=== PATIENT | male | born 1950 | race Caucasian/White ===

== ENCOUNTER 2017-11-12 11:39 | Emergency (ER) | payer MEDICARE, OTHER, SELFPAY ==
[2017-11-12 11:41] VITALS: BP 140/100; PULSE 66; RESP 18; TEMP 36.6; O2SAT 98; BMI 58.8
--- NOTE | 2017-11-12 11:58 | XR_ITS ---
XR chest portable HISTORY: ITS.REASON: CHEST PAIN ORDERING PHYSICIAN: Jojo Matias MD PATIENT AGE: 67 years COMPARISON: 05/30/2017 FINDINGS: The cardiomediastinal silhouette and pulmonary vascularity are within normal limits. The lungs are clear without infiltrates, suspicious nodules, or pleural effusions. Minimal atelectatic or fibrotic changes are present in the left CP angle. Cardiac pacemaker device is present from left subclavian approach. No acute bony abnormalities. IMPRESSION: No acute finding
--- NOTE | 2017-11-12 12:05 | HMH.EDCP ---
ED Disposition Clinical Impression: Atypical chest pain Disposition: Home, Self-Care Condition on Discharge: Good Instructions: DI for Atypical Chest Pain Additional Instructions: Commend very close follow up with your primary care physician Dr. Gutierrez in 1-[address] Annmarie Irving charge weigher, next available appointment. Continue all current medications. Referrals: Gilbert Gutierrez MD [Primary Care Provider] - - Critical Care Critical Care Time: No Attestation: On , the high probability of a clinically significant, sudden or life threatening deterioration of the following system(s) required my full and direct attention, intervention and personal management. The time I documented below is in addition to time spent performing reported procedures but includes the following listed in this critical care notation. Medical Decision Making Vital Signs: 11/12/17 11:41 Temperature 97.8 F Temperature Source Oral Pulse Rate [Radial] 66 Respiratory Rate 18 Blood Pressure [Right Arm] 140/100 Blood Pressure Mean [Right Arm] 113 Blood Pressure Source [Right Arm] Manual Cuff/ Auscultation Blood Pressure Position [Right Arm] Supine 02 Sat by Pulse Oximetry 98 Oxygen Delivery Method Room Air - Lab Data Lab Results 11/12/17 12:05: WBC 8.6, RBC 5.03, Hgb 15.2, Hct 45.4, MCV 90.2, MCH 30.1, MCHC 33.4, RDW 13.5, Plt Count 197, MPV 8.3, Neut % (Auto) 50.3, Lymph % (Auto) 38.1, [place] % (Auto) 8.8, Eos % (Auto) 2.4, Baso % (Auto) 0.4, Neut # (Auto) 4.3, Lymph # (Auto) 3.3, [place] # (Auto) 0.8, Eos # (Auto) 0.2, Baso # (Auto) 0.0 11/12/17 12:05: Sodium 143, Potassium 4.0, Chloride 104, Carbon Dioxide 30, Anion Gap 13.0, BUN 14, Creatinine 1.36 H, Estimated Creat Clear 54, Estimated GFR 52 L, Est GFR ( Amer) 63, Glucose 101, Calcium 8.5, Total Bilirubin 0.8, AST 21, ALT 21, Alkaline Phosphatase 92, Total Creatine Kinase 118, CK-MB (CK-2) 0.9, CK-MB (CK-2) Rel Index 0.8, Troponin I < 0.02, Total Protein 7.5, Albumin 3.2 L, Globulin 4.3 H, Albumin/Globulin Ratio 0.7 L Result diagrams: 11/12/17 12:05 11/12/17 12:05 Orders (Tests/Meds): ED MEDICATIONS Generic Name Dose Route Start Last Admin Trade Name Freq PRN Reason Stop Dose Admin Sodium Chloride 10 ml 11/12/17 11:59 Saline Flush 10ml Syringe IV 12/12/17 11:58 NEEDED PRN Maintain IV Site Discontinued Medications Generic Name Dose Route Start Last Admin Trade Name Freq PRN Reason Stop Dose Admin Aspirin 324 mg 11/12/17 11:58 11/12/17 12:32 Aspirin 81mg Chewable Tablet PO 11/12/17 11:59 324 mg ONCE ONE Administration ORDERS Category Date Time Status XR chest portable Stat Exams 11/12/17 11:58 Taken - Radiology Data #1 Image(s): Chest Image Reviewed: Yes I reviewed the patient's radiology image COPD; AICD, mild atelectasis at bases - ECG Data Tracing #1 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 No change from prior EKG dated 05/30/2017 - [place] Inquiry Pt receiving controlled substance: No Medical Decision Making Narrative: Patient has no complaints, is stable, has normal troponin, no acute changes on EKG, afebrile; will f/u PCP one day and will have close f/u with Dr. Morales. Chest Pain HPI - General Chief Complaint: Chest Pain Stated Complaint: Chest pain Time Seen by Provider: 11/12/17 11:45 Mode of Arrival: Ambulatory Limitations: No Limitations Description of Symptoms (Recalled from ER Triage Doc. by RN): Left side chest pain - History of Present Illness HPI narrative: Chest pain since 1800 last night. Better now. Pain was positional, radiated to scapula, occurred at rest, no nausea, no vomiting, has diminished appetite and is being supplemented per d/w ; no syncope; has a little bit of a dry cough but no fever, no SOB, no diaphoresis, no palpitations. No complaints now. states he has had some short term memory loss since [place] bu
--- NOTE | 2017-11-12 12:12 | ED_ITS ---
ED Disposition Clinical Impression: Atypical chest pain Disposition: Home, Self-Care Condition on Discharge: Good Instructions: DI for Atypical Chest Pain Additional Instructions: Commend very close follow up with your primary care physician Dr. Gutierrez in 1-[address] Annmarie Irving agile developer, next available appointment. Continue all current medications. Referrals: Gilbert Gutierrez MD [Primary Care Provider] - - Critical Care Critical Care Time: No Attestation: On , the high probability of a clinically significant, sudden or life threatening deterioration of the following system(s) required my full and direct attention, intervention and personal management. The time I documented below is in addition to time spent performing reported procedures but includes the following listed in this critical care notation. Medical Decision Making Vital Signs: 11/12/17 11:41 Temperature 97.8 F Temperature Source Oral Pulse Rate [Radial] 66 Respiratory Rate 18 Blood Pressure [Right Arm] 140/100 Blood Pressure Mean [Right Arm] 113 Blood Pressure Source [Right Arm] Manual Cuff/ Auscultation Blood Pressure Position [Right Arm] Supine 02 Sat by Pulse Oximetry 98 Oxygen Delivery Method Room Air - Lab Data Lab Results 11/12/17 12:05: WBC 8.6, RBC 5.03, Hgb 15.2, Hct 45.4, MCV 90.2, MCH 30.1, MCHC 33.4, RDW 13.5, Plt Count 197, MPV 8.3, Neut % (Auto) 50.3, Lymph % (Auto) 38.1 , [place] % (Auto) 8.8, Eos % (Auto) 2.4, Baso % (Auto) 0.4, Neut # (Auto) 4.3, Lymph # (Auto) 3.3, [place] # (Auto) 0.8, Eos # (Auto) 0.2, Baso # (Auto) 0.0 11/12/17 12:05: Sodium 143, Potassium 4.0, Chloride 104, Carbon Dioxide 30, Anion Gap 13.0, BUN 14, Creatinine 1.36 H, Estimated Creat Clear 54, Estimated GFR 52 L, Est GFR ( Amer) 63, Glucose 101, Calcium 8.5, Total Bilirubin 0.8, AST 21, ALT 21, Alkaline Phosphatase 92, Total Creatine Kinase 118, CK-MB ( CK-2) 0.9, CK-MB (CK-2) Rel Index 0.8, Troponin I < 0.02, Total Protein 7.5, Albumin 3.2 L, Globulin 4.3 H, Albumin/Globulin Ratio 0.7 L Result diagrams: 11/12/17 12:05 11/12/17 12:05 Orders (Tests/Meds): ED MEDICATIONS Generic Name Dose Route Start Last Admin Trade Name Freq PRN Reason Stop Dose Admin Sodium Chloride 10 ml 11/12/17 11:59 Saline Flush 10ml Syringe IV 12/12/17 11:58 NEEDED PRN Maintain IV Site Discontinued Medications Generic Name Dose Route Start Last Admin Trade Name Freq PRN Reason Stop Dose Admin Aspirin 324 mg 11/12/17 11:58 11/12/17 12:32 Aspirin 81mg Chewable Tablet PO 11/12/17 11:59 324 mg ONCE ONE Administration ORDERS Category Date Time Status XR chest portable Stat Exams 11/12/17 11:58 Taken - Radiology Data #1 Image(s): Chest Image Reviewed: Yes I reviewed the patient's radiology image COPD; AICD, mild atelectasis at bases - ECG Data Tracing #1 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 No change from prior EKG dated 05/30/2017 - [place] Inquiry Pt receiving controlled substance: No Medical Decision Making Narrative: Patient has no complaints, is stable, has normal troponin, no acute changes on EKG, afebrile; will f/u PCP one day and will have close f/u with Dr. Morales. Chest Pain HPI - Gene
[2017-11-12 12:16] LABS: Basophils % 0.4 % (0.1-2.0); Eosinophils # 0.2 K/mm3 (0.0-0.4); Eosinophils % 2.4 % (0.1-12.0); Hematocrit 45.4 % (42.0-52.0); Hemoglobin 15.2 g/dL (14.1-18.0); Lymphocytes # 3.3 K/mm3 (0.7-4.5); Lymphocytes % 38.1 K/mm3 (10-50); Mean Corpuscular HGB Conc 33.4 g/dL (31.8-35.4); Mean Corpuscular Hemoglobin 30.1 pg (27.0-31.2); Mean Corpuscular Volume 90.2 fl (80-94); Mean Platelet Volume 8.3 fl (7.4-10.4); Monocytes # 0.8 K/mm3 (0.1-1.0); Monocytes % 8.8 % (1.7-9.3); Neutrophils # 4.3 K/mm3 (1.8-7.8); Neutrophils % 50.3 % (37.0-80.0); Platelet Count 197 K/mm3 (142-424); Red Blood Count 5.03 M/mm3 (4.60-6.20); Red Cell Distribution Width 13.5 % (11.5-17.5); White Blood Count 8.6 K/mm3 (4.8-10.8)
[2017-11-12 12:40] LABS: Alanine Aminotransferase 21 U/L (12-78); Albumin Level 3.2 gm/dL (3.4-5.0); Albumin/Globulin Ratio 0.7 (1.1-1.8); Alkaline Phosphatase 92 U/L (46-116); Bilirubin,Total 0.8 mg/dL (0.2-1.0); Blood Urea Nitrogen 14 mg/dL (7-18); CKMB Relative Index 0.8 U/L (0-4.0); Calcium 8.5 mg/dL (8.5-10.1); Carbon Dioxide 30 mmol/L (21.0-32.0); Chloride 104 mmol/L (98-107); Creatine Kinase 118 U/L (39-308); Creatine Kinase MB 0.9 mg/ml (0.0-3.6); Creatinine Clearance Estimated 54 mL/min (0-300); Creatinine,Serum 1.36 mg/dL (0.70-1.30); Estimated Glomerular Filt Rate 52 ml/min (>60); GFR (African American) 63 ML/MIN (>60); Globulin 4.3 gm/dl (1.3-3.2); Glucose 101 mg/dL (74-106); Sodium 143 mmol/L (136-145); Total Protein,Serum 7.5 gm/dL (6.4-8.2); Troponin I < 0.02 ng/ml (0.00-0.06)
[2017-11-12 12:46] LABS: Aspartate Amino Transferase 21 U/L (15-37)
[2017-11-12 13:07] VITALS: BP 129/84; PULSE 61; O2SAT 96
== END 2017-11-12 13:10 | disposition home or self-care (01) ==
PROVIDERS: Emergency Provider Emergency Medicine; Family Provider Internal Medicine Adolescent Medicine; PCP Internal Medicine Adolescent Medicine
DX: R07.89 Other chest pain (principal); J44.9 Chronic obstructive pulmonary disease, unspecified; I25.10 Atherosclerotic heart disease of native coronary artery without angina pectoris; I25.2 Old myocardial infarction; Z87.891 Personal history of nicotine dependence; Z95.0 Presence of cardiac pacemaker
CPT/HCPCS: 71045; 80053; 82550; 82553; 84484; 85025; 93005; 93041; 99284

== ENCOUNTER 2017-11-13 23:26 | Observation (INO) | payer MEDICARE, OTHER, SELFPAY ==
[2017-11-13 23:36] VITALS: BP 149/105; PULSE 87; RESP 20; TEMP 37.1; O2SAT 93; BMI 26.4
[2017-11-14] VITALS (14 sets, daily range): BP systolic 104–135; BP diastolic 60–84; PULSE 50–82; RESP 16–18; TEMP 36.2–37; O2SAT 90–96; BMI 27.4
--- NOTE | 2017-11-14 00:10 | XR_ITS ---
XR chest 2V HISTORY: ITS.REASON: COUGH AND CONGESTION ORDERING PHYSICIAN: Gilbert Gutierrez MD PATIENT AGE: 67 years COMPARISON: 11/12/2017 FINDINGS: Normal heart size. Cardiac pacemaker device remains in place.. Atelectasis/infiltrate has developed in the left lower lobe. The remaining lungs are clear.. No acute bony abnormalities. IMPRESSION: Left lower lobe atelectasis and/or infiltrate
--- NOTE | 2017-11-14 00:15 | PC.NURSE ---
PT TO XRAY AT THIS TIME
--- NOTE | 2017-11-14 00:21 | PC.NURSE ---
PT BACK FROM XRAY
[2017-11-14 00:29] LABS: Basophils % 0.3 % (0.1-2.0); Eosinophils # 0.2 K/mm3 (0.0-0.4); Eosinophils % 1.8 % (0.1-12.0); Hematocrit 41.4 % (42.0-52.0); Hemoglobin 13.9 g/dL (14.1-18.0); Lymphocytes # 3.4 K/mm3 (0.7-4.5); Mean Corpuscular HGB Conc 33.5 g/dL (31.8-35.4); Mean Corpuscular Hemoglobin 30.2 pg (27.0-31.2); Mean Corpuscular Volume 90.2 fl (80-94); Mean Platelet Volume 8.6 fl (7.4-10.4); Monocytes % 11.8 % (1.7-9.3); Neutrophils # 3.8 K/mm3 (1.8-7.8); Neutrophils % 45.2 % (37.0-80.0); Platelet Count 200 K/mm3 (142-424); Red Cell Distribution Width 13.5 % (11.5-17.5); White Blood Count 8.4 K/mm3 (4.8-10.8)
[2017-11-14 00:37] LABS: Strep Scrn Group A (Rapid) Negative (Negative)
--- NOTE | 2017-11-14 00:48 | PC.NURSE ---
LAB CALLED TO LET US KNOW THEY NEEDED ANOTHER GREEN TOP. PT STUCK USING BUTTERFLY ON LEFT HAND LABS RESENT AT THIS TIME
[2017-11-14 01:17] LABS: Alanine Aminotransferase 16 U/L (12-78); Albumin Level 3.2 gm/dL (3.4-5.0); Albumin/Globulin Ratio 0.8 (1.1-1.8); Alkaline Phosphatase 91 U/L (46-116); Anion Gap 11.5 mEq/L (5-15); Aspartate Amino Transferase 15 U/L (15-37); Bilirubin,Total 0.4 mg/dL (0.2-1.0); Blood Urea Nitrogen 13 mg/dL (7-18); Calcium 8.4 mg/dL (8.5-10.1); Carbon Dioxide 29 mmol/L (21.0-32.0); Chloride 104 mmol/L (98-107); Creatine Kinase 90 U/L (39-308); Creatinine Clearance Estimated 67 mL/min (0-300); Creatinine,Serum 1.26 mg/dL (0.70-1.30); Estimated Glomerular Filt Rate 57 ml/min (>60); GFR (African American) 69 ML/MIN (>60); Globulin 4.2 gm/dl (1.3-3.2); Glucose 100 mg/dL (74-106); Potassium 3.5 mmoL/L (3.5-5.1); Sodium 141 mmol/L (136-145); Total Protein,Serum 7.4 gm/dL (6.4-8.2); Troponin I < 0.02 ng/ml (0.00-0.06)
[2017-11-14 01:19] LABS: CKMB Relative Index 0.6 U/L (0-4.0); Creatine Kinase MB < 0.5 mg/ml (0.0-3.6)
--- NOTE | 2017-11-14 01:25 | HMH.EDURI ---
ED Disposition Clinical Impression: CAP (community acquired pneumonia) Qualifiers: Laterality: right Lung location: lower lobe of lung Qualified Code(s): J18.1 - Lobar pneumonia, unspecified organism Disposition: Admitted as Observation Condition on Discharge: Good Referrals: Gilbert Gutierrez MD [Primary Care Provider] - - Critical Care Critical Care Time: No Attestation: On 11/13/17, the high probability of a clinically significant, sudden or life threatening deterioration of the following system(s) required my full and direct attention, intervention and personal management. The time I documented below is in addition to time spent performing reported procedures but includes the following listed in this critical care notation. Medical Decision Making - Medical Records Medical records reviewed: Yes: I reviewed the patient's medical records. Vital Signs: 11/13/17 23:36 Temperature 98.8 F Temperature Source Oral Pulse Rate [Right Brachial] 87 Respiratory Rate 20 Blood Pressure [Right Arm] 149/105 Blood Pressure Mean [Right Arm] 119 Blood Pressure Source [Right Arm] Automatic Cuff Blood Pressure Position [Right Arm] Supine 02 Sat by Pulse Oximetry 93 L Oxygen Delivery Method Room Air - Lab Data Lab results reviewed: Yes: I reviewed the patient's lab results. Lab Results 11/13/17 00:10: Influenza Type A Ag Negative, Influenza Type B Ag Negative, Group A Strep Rapid Negative 11/14/17 00:10: WBC 8.4, RBC 4.60, Hgb 13.9 L, Hct 41.4 L, MCV 90.2, MCH 30.2, MCHC 33.5, RDW 13.5, Plt Count 200, MPV 8.6, Neut % (Auto) 45.2, Lymph % (Auto) 41.0, [place] % (Auto) 11.8 H, Eos % (Auto) 1.8, Baso % (Auto) 0.3, Neut # (Auto) 3.8, Lymph # (Auto) 3.4, [place] # (Auto) 1.0, Eos # (Auto) 0.2, Baso # (Auto) 0.0 11/14/17 00:10: Sodium 141, Potassium 3.5, Chloride 104, Carbon Dioxide 29, Anion Gap 11.5, BUN 13, Creatinine 1.26, Estimated Creat Clear 67, Estimated GFR 57 L, Est GFR ( Amer) 69, Glucose 100, Calcium 8.4 L, Total Bilirubin 0.4, AST 15 D, ALT 16, Alkaline Phosphatase 91, Total Creatine Kinase 90, CK-MB (CK-2) < 0.5 D, CK-MB (CK-2) Rel Index 0.6, Troponin I < 0.02, Total Protein 7.4, Albumin 3.2 L, Globulin 4.2 H, Albumin/Globulin Ratio 0.8 L Result diagrams: 11/14/17 00:10 11/14/17 00:10 Orders (Tests/Meds): ED MEDICATIONS Generic Name Dose Route Start Last Admin Trade Name Freq PRN Reason Stop Dose Admin Ceftriaxone Sodium 1 gm/ 50 mls @ 100 mls/hr 11/14/17 01:40 Sodium Chloride IV 11/14/17 02:09 ONCE ONE Azithromycin 500 mg/ Sodium 250 mls @ 250 mls/hr 11/14/17 01:41 Chloride IV 11/14/17 01:42 ONCE ONE Protocol ORDERS Category Date Time Status XR chest 2V Stat Exams 11/14/17 00:10 Taken Lactic Acid Stat Lab 11/14/17 01:35 Ordered Blood Culture Stat Micro 11/14/17 01:35 Ordered Strep Screen Confirmation Stat Micro 11/13/17 00:10 Received 12-lead EKG Request [ECG Request by /Derek] Stat Y 11/13/17 23:50 Ordered - Radiology Data #1 Image Reviewed: Yes I reviewed the patient's radiology image Preliminary Findings: Abnormal - ECG Data Tracing #1 I reviewed this ECG and interpreted as documented below: Ischemic changes: non-specific ST-T wave changes - Physician Consults Physician Consulted: marianne Reason -: Admission - [place] Inquiry Pt receiving controlled substance: No URI/Sore Throat HPI - General Chief Complaint: Upper Respiratory Infection Stated Complaint: Aching,Burning in Chest Time Seen by Provider: 11/14/17 01:25 Mode of Arrival: Family Vehicle Source of Information: Patient, Spouse, Medical Record Limitations: No Limitations Description of Symptoms (Recalled from ER Triage Doc. by RN): C/O FLU LIKE SYMPTOMS WITH CHEST/BACK PAIN. WAS SEEN IN THIS ED YESTERDAY AND WORKED UP FOR CHEST PAIN - History of Present Illness HPI Narrative: pt with lt sided cp with scraper tender cough with dec po intake - he was in the ed yesterday w
--- NOTE | 2017-11-14 01:31 | ED_ITS ---
ED Disposition Clinical Impression: CAP (community acquired pneumonia) Qualifiers: Laterality: right Lung location: lower lobe of lung Qualified Code(s): J18.1 - Lobar pneumonia, unspecified organism Disposition: Admitted as Observation Condition on Discharge: Good Referrals: Gilbert Gutierrez MD [Primary Care Provider] - - Critical Care Critical Care Time: No Attestation: On 11/13/17, the high probability of a clinically significant, sudden or life threatening deterioration of the following system(s) required my full and direct attention, intervention and personal management. The time I documented below is in addition to time spent performing reported procedures but includes the following listed in this critical care notation. Medical Decision Making - Medical Records Medical records reviewed: Yes: I reviewed the patient's medical records. Vital Signs: 11/13/17 23:36 Temperature 98.8 F Temperature Source Oral Pulse Rate [Right Brachial] 87 Respiratory Rate 20 Blood Pressure [Right Arm] 149/105 Blood Pressure Mean [Right Arm] 119 Blood Pressure Source [Right Arm] Automatic Cuff Blood Pressure Position [Right Arm] Supine 02 Sat by Pulse Oximetry 93 L Oxygen Delivery Method Room Air - Lab Data Lab results reviewed: Yes: I reviewed the patient's lab results. Lab Results 11/13/17 00:10: Influenza Type A Ag Negative, Influenza Type B Ag Negative, Group A Strep Rapid Negative 11/14/17 00:10: WBC 8.4, RBC 4.60, Hgb 13.9 L, Hct 41.4 L, MCV 90.2, MCH 30.2, MCHC 33.5, RDW 13.5, Plt Count 200, MPV 8.6, Neut % (Auto) 45.2, Lymph % (Auto) 41.0, [place] % (Auto) 11.8 H, Eos % (Auto) 1.8, Baso % (Auto) 0.3, Neut # (Auto) 3.8, Lymph # (Auto) 3.4, [place] # (Auto) 1.0, Eos # (Auto) 0.2, Baso # (Auto) 0.0 11/14/17 00:10: Sodium 141, Potassium 3.5, Chloride 104, Carbon Dioxide 29, Anion Gap 11.5, BUN 13, Creatinine 1.26, Estimated Creat Clear 67, Estimated GFR 57 L, Est GFR ( Amer) 69, Glucose 100, Calcium 8.4 L, Total Bilirubin 0.4, AST 15 D, ALT 16, Alkaline Phosphatase 91, Total Creatine Kinase 90, CK-MB (CK-2) < 0.5 D, CK-MB (CK-2) Rel Index 0.6, Troponin I < 0.02 , Total Protein 7.4, Albumin 3.2 L, Globulin 4.2 H, Albumin/Globulin Ratio 0.8 L Result diagrams: 11/14/17 00:10 11/14/17 00:10 Orders (Tests/Meds): ED MEDICATIONS Generic Name Dose Route Start Last Admin Trade Name Freq PRN Reason Stop Dose Admin Ceftriaxone Sodium 1 gm/ 50 mls @ 100 mls/hr 11/14/17 01:40 Sodium Chloride IV 11/14/17 02:09 ONCE ONE Azithromycin 500 mg/ Sodium 250 mls @ 250 mls/hr 11/14/17 01:41 Chloride IV 11/14/17 01:42 ONCE ONE Protocol ORDERS Category Date Time Status XR chest 2V Stat Exams 11/14/17 00:10 Taken Lactic Acid Stat Lab 11/14/17 01:35 Ordered Blood Culture Stat Micro 11/14/17 01:35 Ordered Strep Screen Confirmation Stat Micro 11/13/17 00:10 Received 12-lead EKG Request [ECG Request by /Derek] Stat Y 11/13/17 23:50 Ordered - Radiology Data #1 Image Reviewed: Yes I reviewed the patient's radiology image Preliminary Findings: Abnormal - ECG Data Tracing #1 I reviewed this ECG and interpreted as documented below: Ischemic changes: non-specific ST-T wave changes - Physician Consults Physician Consulted: marianne Reason -: Admission - [place]
[2017-11-14 02:17] LABS: Lactic Acid 0.8 mmol/L (0.4-2.0)
--- NOTE | 2017-11-14 04:23 | PC.NURSE ---
WAS ADMITTED TODAY WITH COMMUNITY ACQUIRED PNEUMONIA. SPOUSE IS AT BEDSIDE. WAS SEEN IN ED ON FOR CHEST PAIN. CARDIACS WERE NEGATIVE. CAME BACK TO ED LAST NIGHT WITH BACK AND CHEST PAIN, VERY WEAK. SPOUSE STATES NO APPETITE. PT SAID IT WAS OK. SO WEAK COULDN'T HARDLY ASSIST IN TRANSFER FROM STRETCHER TO BED. LUNGS ARE DIMINSHED. SOA WITH EXERTION.HAS A NONPRODUCTIVE COUGH. IV IS PATENT, TEDS ARE ON.HAS NO NEEDS AT THIS TIME. BED IS LOCKED IN LOW POSITION, SIDE RALES UP X 2, CALL LIGHT WITHIN REACH. ENCOURAGED TO CALL IF ANY NEEDS. WILL CONTINUE TO MONITOR.
[2017-11-14 07:23] LABS: Basophils % 0.4 % (0.1-2.0); Eosinophils # 0.1 K/mm3 (0.0-0.4); Eosinophils % 1.2 % (0.1-12.0); Hematocrit 41.5 % (42.0-52.0); Hemoglobin 13.8 g/dL (14.1-18.0); Lymphocytes # 3.1 K/mm3 (0.7-4.5); Lymphocytes % 37.7 K/mm3 (10-50); Mean Corpuscular HGB Conc 33.3 g/dL (31.8-35.4); Mean Corpuscular Hemoglobin 30.5 pg (27.0-31.2); Mean Corpuscular Volume 91.7 fl (80-94); Mean Platelet Volume 8.2 fl (7.4-10.4); Monocytes # 0.9 K/mm3 (0.1-1.0); Monocytes % 10.5 % (1.7-9.3); Neutrophils # 4.2 K/mm3 (1.8-7.8); Neutrophils % 50.1 % (37.0-80.0); Platelet Count 176 K/mm3 (142-424); Red Blood Count 4.52 M/mm3 (4.60-6.20); Red Cell Distribution Width 13.3 % (11.5-17.5); White Blood Count 8.3 K/mm3 (4.8-10.8)
[2017-11-14 07:35] LABS: Anion Gap 10.5 mEq/L (5-15); Blood Urea Nitrogen 13 mg/dL (7-18); Carbon Dioxide 29 mmol/L (21.0-32.0); Chloride 106 mmol/L (98-107); Creatinine Clearance Estimated 84 mL/min (0-300); Creatinine,Serum 1.08 mg/dL (0.70-1.30); Estimated Glomerular Filt Rate 68 ml/min (>60); GFR (African American) 83 ML/MIN (>60); Glucose 98 mg/dL (74-106); Potassium 3.5 mmoL/L (3.5-5.1); Sodium 142 mmol/L (136-145)
--- NOTE | 2017-11-14 07:53 | HMH.PHAVTE ---
[facility] Pharm[facility] VTE Monitoring - Patient Demographics Admission date: 11/14/17 Report Date: 11/14/17 Time: 07:54 Allergies/Adverse Reactions: No Known Allergies Allergy (Verified 11/13/17 23:48) Height: 1.8 m Weight: 89.4 kg Patient Problems: Current Active Problems CAP (community acquired pneumonia) (Acute) - VTE Risk Labs: VTE Related Lab Results Hgb 13.8 g/dL (14.1-18.0) L 11/14/17 06:15 Hct 41.5 % (42.0-52.0) L 11/14/17 06:15 Plt Count 176 K/mm3 (142-424) 11/14/17 06:15 BUN 13 mg/dL (7-18) 11/14/17 06:15 Creatinine 1.08 mg/dL (0.70-1.30) 11/14/17 06:15 Estimated Creat Clear 84 mL/min (0-300) 11/14/17 06:15 Was VTE Risk Assessment Performed: Yes VTE Score: 3 VTE Risk Level: Low Risk - Prophylaxis VTE Prophylaxis Ordered?: Yes Types of VTE Prophylaxis: TEDS Knee High Location of Applied Device: Bilateral Lower Extremeties - VTE Diagnosis Confirmed Treatment or plan recommended: Continue Current Treatment
--- NOTE | 2017-11-14 08:35 | HMH.HP ---
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 Patient was seen earlier in the week with similar symptoms and negative work-up. further reports low grade temps and decreased appetite. Cough is non-productive. Denies any shortness of breath. No other ENT symptoms. In the ED, he was found to have a left lower lobe infiltrate. WBC was normal. Influenza testing was negative. Patient was admitted for IV antibiotics and further evaluation. [facility] History Medical History: Reports:: Coronary Artery Disease, Myocardial Infarction Denies:: Cancer, Diabetes Mellitus Type 1, Diabetes Mellitus Type 2, Hypertension, MRSA, Pulmonary Embolism Other Surgeries: Yes: Pacemaker Amputation: No Fractures: No - *Social History Educational Level: Completed High School Smoking Status: Former smoker Tobacco Type: cigarettes # Packs/Day (cigarettes): 1 Smoking End Date: 2016 Alcohol Intake: never Occupational Status: retired Housing: house Household Members: spouse - Psychiatric History Expresses thoughts of harming self/others: None Suicide Plan Description: No Plan *Family Hx:: Asthma, Cancer, Coronary Artery Disease, Diabetes, Heart Attack, Hyperlipidemia, Hypertension, Kidney Disease, Stroke, Thyroid Disorder Review of Systems - Review of Systems Review of systems:: pertinent systems reviewed and negative unless documented below - Constitutional Reports fatigue, Reports fever(s), Reports malaise, Reports weakness - *Respiratory Reports cough - *Neurologic Reports other, Denies seizure-like activity Meds Home Medications Medication Instructions Recorded Confirmed Type Aspirin [Aspir 81] 81 mg PO DAILY MDD 81 11/12/17 11/12/17 History Atorvastatin Calcium [Atorvastatin 80 mg PO HS MDD 80 11/12/17 11/12/17 History 80mg Tab] Citalopram Hydrobromide [Celexa 20 mg PO DAILY MDD 20 11/12/17 11/12/17 History 20mg Tablet] Memantine HCl/Donepezil HCl 1 each PO DAILY MDD 28 11/12/17 11/12/17 History [Namzaric 28 mg-10 mg Capsule] Mirtazapine [Remeron] 15 mg PO DAILY 11/12/17 11/12/17 History Allergies Allergy/AdvReac Type Severity Reaction Status Date / Time No Known Allergies Allergy Verified 11/13/17 23:48 Exam Vital signs and Labs for Last 24 Hours: Temp Pulse Resp BP Pulse Ox 97.2 F L 65 18 135/83 96 11/14/17 02:42 11/14/17 03:25 11/14/17 02:42 11/14/17 02:42 11/14/17 03:00 Laboratory Results - last 24 hr 11/14/17 06:15: WBC 8.3, RBC 4.52 L, Hgb 13.8 L, Hct 41.5 L, MCV 91.7, MCH 30.5, MCHC 33.3, RDW 13.3, Plt Count 176, MPV 8.2, Neut % (Auto) 50.1, Lymph % (Auto) 37.7, [place] % (Auto) 10.5 H, Eos % (Auto) 1.2, Baso % (Auto) 0.4, Neut # (Auto) 4.2, Lymph # (Auto) 3.1, [place] # (Auto) 0.9, Eos # (Auto) 0.1, Baso # (Auto) 0.0 11/14/17 06:15: Sodium 142, Potassium 3.5, Chloride 106, Carbon Dioxide 29, Anion Gap 10.5, BUN 13, Creatinine 1.08, Estimated Creat Clear 84, Estimated GFR 68, Est GFR ( Amer) 83 D, Glucose 98 I & O for Last 24 hours: Intake & Output 11/11/17 11/12/17 11/13/17 11/14/17 11:59 11:59 11:59 11:59 Intake Total 120 / 120 Balance 120 / 120 Narrative: ALert and oriented. Mentation at baseline. Rate and rhythm regular. No edema. PUlses 2+ bilaterally. LS clear and equal. Abdomen soft and nontender. Normoactive bowel sounds. No JVD or cervical LAD. Skin pink, warm and dry. Mucous membraces dry. Nose clear. No acute neurological deficits. H&P: Result - Labs Labs: Short CBC 11/14/17 Range/Units 06:15 WBC 8.3 (4.8-10.8) K/mm3 Hgb 13.8 L (14.1-18.0) g/dL Hct 41.5 L (42.0-52.0) % Plt Count 176 (142-424) K/mm3 [facility] 11/14/17 06:15 Sodium 142 Potassium 3.5 Chloride 106 Carbon Dioxide 29 BUN 13 Creatinine 1.08 Glucose 98
--- NOTE | 2017-11-14 18:45 | PC.NURSE ---
PT HAS TOLERATED WELL TODAY, TELE STRIP HAD SLIGHT ST ELEVATION, BUNNY WAS CALLED AT DR. STRINGER'S OFFICE AND AN EKG WAS ORDERD AND COMPLETED. RESULTS WERE CALLED BY RT AND THIS NURSE CALLED AND LEFT MESSAGE WITH KAJAL THAT RESULTS WERE IN FOR ORDERED EKG, AND SHE WAS TO NOTIFY BUNNY TO CALL DR. STRINGER FOR THEM TO BE READ. PT AMBULATED TO BATHROOM X 1 THIS SHIFT, WITH ASSISTANCE FROM . PT IS IN BED, CALL LIGHT WITHIN REACH, FAMILY AT BEDSIDE, WILL CONTINUE TO MONITOR.
--- NOTE | 2017-11-14 19:22 | PC.NURSE ---
Addendum entered by Mara Metz RN 11/14/17 19:29: REPORT RECEIVED FROM SYLVESETR Original Note: PT REPORT FROM BEN.WHE; PT FULL CODE
[2017-11-15] VITALS: BP 130/72; PULSE 77; RESP 18; TEMP 36.6; O2SAT 96
--- NOTE | 2017-11-15 00:03 | PC.NURSE ---
PT ON TELEMETRY, CURRENTLY NSR
[2017-11-15 04:00] VITALS: PULSE 60
--- NOTE | 2017-11-15 06:03 | PC.NURSE ---
IV PLACED IN ER
--- NOTE | 2017-11-15 06:22 | PC.NURSE ---
PT SLEPT LONG INTERVALS THIS SHIFT. IV SECURE AND PATENT. NO C/O PAIN OR DISCOMFORT REPORTED. NO COUGH NOTED. BREATH SOUNDS CLEAR, BUT DIMINISHED IN BASES. PT STABLE. WILL CONTINUE TO MONITOR. REPORT TO BE GIVEN TO ONCOMING NURSE.
[2017-11-15 07:39] VITALS: BP 104/70; PULSE 73; RESP 20; TEMP 36.7; O2SAT 94
[2017-11-15 08:00] VITALS: PULSE 68
--- NOTE | 2017-11-15 08:14 | HMH.DCSUM ---
General - General Admission date: 11/14/17 Discharge date: 11/15/17 HPI HPI: 67-year-old white male with a previous anoxic brain injury status post cardiac arrest last year presented to the ED with severe right sided chest pain, weakness and cough. Patient was seen earlier in the week with similar symptoms and negative work-up. further reports low grade temps and decreased appetite. Cough is non-productive. Denies any shortness of breath. No other ENT symptoms. In the ED, he was found to have a left lower lobe infiltrate. WBC was normal. Influenza testing was negative. Patient was admitted for IV antibiotics and further evaluation. Objective Vital signs: Temp Pulse Resp BP Pulse Ox 98.0 F 73 20 104/70 94 L 11/15/17 07:39 11/15/17 07:39 11/15/17 07:39 11/15/17 07:39 11/15/17 07:39 Narrative: Patient is somewhat sluggish, but is alert and pleasant. Eating breakfast vigorously. Sluggishness and delayed speech is at baseline. no acute distress - *Routine HEENT Exam Head: Present: normocephalic, atraumatic - *Routine Respiratory Exam Present: rhonchi (In the right lung field, much clearer than admission). Absent: accessory muscle use - *Routine Cardiovascular Exam Present: RRR, Normal S1, Normal S2 - *Routine Abdominal Exam Present: soft Hospital Course Hospital Course: Patient was admitted, placed on standard community-acquired pneumonia protocol, defervesced, white count improved. This morning he is doing much better, doing his own bathroom activities. Eating well, no fevers, breathing well. He will be discharged home to finish up standard community-acquired pneumonia protocols and follow-up with me in my office in 3 days. DS: Diagnosis - Discharge Diagnosis (1) CAP (community acquired pneumonia) Status: Acute (2) Atypical chest pain Status: Acute Meds Home Medications Medication Instructions Recorded Confirmed Type Aspirin [Aspir 81] 81 mg PO DAILY MDD 81 11/12/17 11/14/17 History Atorvastatin Calcium [Atorvastatin 80 mg PO HS MDD 80 11/12/17 11/14/17 History 80mg Tab] Citalopram Hydrobromide [Celexa 20 mg PO HS MDD 20 11/12/17 11/14/17 History 20mg Tablet] Memantine HCl/Donepezil HCl 1 each PO HS MDD 28 11/12/17 11/14/17 History [Namzaric 28 mg-10 mg Capsule] Cyanocobalamin (Vitamin B-12) 500 mcg PO DAILY 11/14/17 11/14/17 History [Vitamin B-12] Mirtazapine 15 mg PO HS 11/14/17 11/14/17 History Allergies Allergy/AdvReac Type Severity Reaction Status Date / Time No Known Allergies Allergy Verified 11/13/17 23:48 Discharge Plan - Patient Discharge Instructions Activity: Ambulate as Tolerated Diet: advance to your usual diet - Follow up Plan Follow up with: Gilbert Gutierrez MD [Primary Care Provider] - 11/18/17 Disposition: Home, Self-Long-Term Medications: Home Medications Medication Instructions Recorded Confirmed Type Aspirin [Aspir 81] 81 mg PO DAILY MDD 81 11/12/17 11/14/17 History Atorvastatin Calcium [Atorvastatin 80 mg PO HS MDD 80 11/12/17 11/14/17 History 80mg Tab] Citalopram Hydrobromide [Celexa 20 mg PO HS MDD 20 11/12/17 11/14/17 History 20mg Tablet] Memantine HCl/Donepezil HCl 1 each PO HS MDD 28 11/12/17 11/14/17 History [Namzaric 28 mg-10 mg Capsule] Cyanocobalamin (Vitamin B-12) 500 mcg PO DAILY 11/14/17 11/14/17 History [Vitamin B-12] Mirtazapine 15 mg PO HS 11/14/17 11/14/17 History Prescriptions/Medication Reconciliation: New Azithromycin [Zithromax 250mg tab] 250 mg PO DIRECTED #6 tab Benzonatate [Tessalon Perle 100mg Cap] 100 mg PO TIDP PRN #30 cap PRN Reason: Cough Cefdinir [Omnicef 300mg Capsule] 300 mg PO BID #20 cap Continue Citalopram Hydrobromide [Celexa 20mg Tablet] 20 mg PO HS MDD 20 Atorvastatin Calcium [Atorvastatin 80mg Tab] 80 mg PO HS MDD 80 Aspirin [Aspir 81] 81 mg PO DAILY MDD 81 Memantine HCl/Donepezil HCl [Namzaric
--- NOTE | 2017-11-15 08:20 | P.DS_ITS ---
General - General Admission date: 11/14/17 Discharge date: 11/15/17 HPI HPI: 67-year-old white male with a previous anoxic brain injury status post cardiac arrest last year presented to the ED with severe right sided chest pain, weakness and cough. Patient was seen earlier in the week with similar symptoms and negative work-up. further reports low grade temps and decreased appetite. Cough is non-productive. Denies any shortness of breath. No other ENT symptoms. In the ED, he was found to have a left lower lobe infiltrate. WBC was normal. Influenza testing was negative. Patient was admitted for IV antibiotics and further evaluation. Objective Vital signs: Temp Pulse Resp BP Pulse Ox 98.0 F 73 20 104/70 94 L 11/15/17 07:39 11/15/17 07:39 11/15/17 07:39 11/15/17 07:39 11/15/17 07:39 Narrative: Patient is somewhat sluggish, but is alert and pleasant. Eating breakfast vigorously. Sluggishness and delayed speech is at baseline. no acute distress - *Routine HEENT Exam Head: Present: normocephalic, atraumatic - *Routine Respiratory Exam Present: rhonchi (In the right lung field, much clearer than admission). Absent : accessory muscle use - *Routine Cardiovascular Exam Present: RRR, Normal S1, Normal S2 - *Routine Abdominal Exam Present: soft Hospital Course Hospital Course: Patient was admitted, placed on standard community-acquired pneumonia protocol, defervesced, white count improved. This morning he is doing much better, doing his own bathroom activities. Eating well, no fevers, breathing well. He will be discharged home to finish up standard community-acquired pneumonia protocols and follow-up with me in my office in 3 days. DS: Diagnosis - Discharge Diagnosis (1) CAP (community acquired pneumonia) Status: Acute (2) Atypical chest pain Status: Acute Meds Home Medications Medication Instructions Recorded Confirmed Type Aspirin [Aspir 81] 81 mg PO DAILY MDD 81 11/12/17 11/14/17 History Atorvastatin Calcium [Atorvastatin 80 mg PO HS MDD 80 11/12/17 11/14/17 History 80mg Tab] Citalopram Hydrobromide [Celexa 20 mg PO HS MDD 20 11/12/17 11/14/17 History 20mg Tablet] Memantine HCl/Donepezil HCl 1 each PO HS MDD 28 11/12/17 11/14/17 History [Namzaric 28 mg-10 mg Capsule] Cyanocobalamin (Vitamin B-12) 500 mcg PO DAILY 11/14/17 11/14/17 History [Vitamin B-12] Mirtazapine 15 mg PO HS 11/14/17 11/14/17 History Allergies Allergy/AdvReac Type Severity Reaction Status Date / Time No Known Allergies Allergy Verified 11/13/17 23:48 Discharge Plan - Patient Discharge Instructions Activity: Ambulate as Tolerated Diet: advance to your usual diet - Follow up Plan Follow up with: Gilbert Gutierrez MD [Primary Care Provider] - 11/18/17 Disposition: Home, Self-Detention Medications: Home Medications Medication Instructions Recorded Confirmed Type Aspirin [Aspir 81] 81 mg PO DAILY MDD 81 11/12/17 11/14/17 History Atorvastatin Calcium [Atorvastatin 80 mg PO HS MDD 80 11/12/17 11/14/17 History 80mg Tab] Citalopram Hydrobromide [Celexa 20 mg PO HS MDD 20 11/12/17 11/14/17 History 20mg Tablet] Memantine HCl/Donepezil HCl 1 each PO HS MDD 28 11/12/17 11/14/17 History [Namzaric 28 mg-10 mg Capsule] Cyanocobala
== END 2017-11-15 10:44 | disposition home or self-care (01) ==
LOC: ER 11-14 01:44 → 2ND 11-14 01:48
PROVIDERS: Admitting Provider Internal Medicine Adolescent Medicine; Emergency Provider Emergency Medicine; Family Provider Internal Medicine Adolescent Medicine; PCP Internal Medicine Adolescent Medicine; Visit Provider Internal Medicine Adolescent Medicine
DX: J18.9 Pneumonia, unspecified organism (principal); I25.2 Old myocardial infarction; I25.10 Atherosclerotic heart disease of native coronary artery without angina pectoris; G93.1 Anoxic brain damage, not elsewhere classified
CPT/HCPCS: 36415; 71046; 80048; 80053; 82550; 82553; 83605; 84484; 85025; 87040; 87275; 87276; 87430; 93005; 93041; 94760; 94761; 96365; 96367; 99285; G0378; J0456

== ENCOUNTER 2018-02-08 00:21 | Emergency (ER) | payer MEDICARE, OTHER, SELFPAY ==
[2018-02-08 00:24] VITALS: BMI 25.7
--- NOTE | 2018-02-08 00:25 | XR_ITS ---
XR chest portable COMPARISON: Portable upright chest 11/12/2017 HISTORY: Chest pain TECHNIQUE: Portable upright chest FINDINGS: This is a slightly poor inspiration, there is no definite pneumonic infiltrate. Cardiac size is likely normal considering the slightly poor inspiration. The cardiac pacemaker and unipolar electrode are again noted. There is no evidence of failure and is no pleural fluid. IMPRESSION: Nonacute chest findings
[2018-02-08 00:40] VITALS: BP 154/88; PULSE 61; RESP 14; TEMP 36.7; O2SAT 96; BMI 25.7
[2018-02-08 01:03] LABS: Basophils % 0.4 % (0.1-2.0); Eosinophils # 0.2 K/mm3 (0.0-0.4); Eosinophils % 2.4 % (0.1-12.0); Hematocrit 45.6 % (42.0-52.0); Hemoglobin 15.2 g/dL (14.1-18.0); Lymphocytes # 4.1 K/mm3 (0.7-4.5); Lymphocytes % 41.2 K/mm3 (10-50); Mean Corpuscular HGB Conc 33.3 g/dL (31.8-35.4); Mean Corpuscular Hemoglobin 30.7 pg (27.0-31.2); Mean Corpuscular Volume 92.1 fl (80-94); Monocytes # 0.9 K/mm3 (0.1-1.0); Monocytes % 8.9 % (1.7-9.3); Neutrophils # 4.7 K/mm3 (1.8-7.8); Platelet Count 185 K/mm3 (142-424); Red Blood Count 4.95 M/mm3 (4.60-6.20); Red Cell Distribution Width 13.8 % (11.5-17.5); White Blood Count 9.9 K/mm3 (4.8-10.8)
[2018-02-08 01:19] LABS: Lactic Acid 1.3 mmol/L (0.4-2.0)
[2018-02-08 01:29] LABS: Alanine Aminotransferase 22 U/L (12-78); Albumin Level 3.5 gm/dL (3.4-5.0); Albumin/Globulin Ratio 0.9 (1.1-1.8); Alkaline Phosphatase 92 U/L (46-116); Anion Gap 11.8 mEq/L (5-15); Aspartate Amino Transferase 17 U/L (15-37); Bilirubin,Total 0.2 mg/dL (0.2-1.0); Blood Urea Nitrogen 15 mg/dL (7-18); CKMB Relative Index 0.8 U/L (0-4.0); Calcium 8.7 mg/dL (8.5-10.1); Carbon Dioxide 28 mmol/L (21.0-32.0); Chloride 106 mmol/L (98-107); Creatine Kinase 89 U/L (39-308); Creatine Kinase MB 0.7 ng/ml (0.0-3.6); Creatinine Clearance Estimated 72 mL/min (0-300); Creatinine,Serum 1.17 mg/dL (0.70-1.30); Estimated Glomerular Filt Rate 62 ml/min (>60); GFR (African American) 75 ML/MIN (>60); Glucose 100 mg/dL (74-106); Potassium 3.8 mmoL/L (3.5-5.1); Sodium 142 mmol/L (136-145); Total Protein,Serum 7.5 gm/dL (6.4-8.2); Troponin I < 0.02 ng/ml (0.00-0.06)
[2018-02-08 01:36] VITALS: BP 121/79; PULSE 66; RESP 14; TEMP 36.7; O2SAT 92
--- NOTE | 2018-02-08 02:16 | HMH.EDCP ---
ED Disposition Clinical Impression: Bronchitis, Atypical chest pain Disposition: Home, Self-Care Condition on Discharge: Good Instructions: DI for Atypical Chest Pain Additional Instructions: use meds and call pcp for follow up Prescriptions: levoFLOXacin [Levaquin 500mg tab] 500 mg PO DAILY #7 tab Referrals: Gilbert Gutierrez MD [Primary Care Provider] - - Critical Care Critical Care Time: No Attestation: On 02/08/18, the high probability of a clinically significant, sudden or life threatening deterioration of the following system(s) required my full and direct attention, intervention and personal management. The time I documented below is in addition to time spent performing reported procedures but includes the following listed in this critical care notation. Medical Decision Making - Medical Records Medical records reviewed: Yes: I reviewed the patient's medical records. - [place] Inquiry Pt receiving controlled substance: No Vital Signs: 02/08/18 00:40 02/08/18 01:36 Temperature 98.1 F 98.1 F Temperature Source Oral Oral Pulse Rate [Right Radial] 61 66 Respiratory Rate 14 14 Blood Pressure [Right Arm] 154/88 121/79 Blood Pressure Mean [Right Arm] 110 93 Blood Pressure Source [Right Arm] Automatic Cuff Automatic Cuff Blood Pressure Position [Right Arm] Sitting Sitting 02 Sat by Pulse Oximetry 96 92 L Oxygen Delivery Method Room Air Room Air - Lab Data Lab results reviewed: Yes: I reviewed the patient's lab results. Lab Results 02/08/18 00:50: WBC 9.9, RBC 4.95, Hgb 15.2, Hct 45.6, MCV 92.1, MCH 30.7, MCHC 33.3, RDW 13.8, Plt Count 185, MPV 9.0, Neut % (Auto) 47.0, Lymph % (Auto) 41.2, [place] % (Auto) 8.9, Eos % (Auto) 2.4, Baso % (Auto) 0.4, Neut # (Auto) 4.7, Lymph # (Auto) 4.1, [place] # (Auto) 0.9, Eos # (Auto) 0.2, Baso # (Auto) 0.0 02/08/18 00:50: Sodium 142, Potassium 3.8, Chloride 106, Carbon Dioxide 28, Anion Gap 11.8, BUN 15, Creatinine 1.17, Estimated Creat Clear 72, Estimated GFR 62, Est GFR ( Amer) 75, Glucose 100, Calcium 8.7, Total Bilirubin 0.2, AST 17, ALT 22, Alkaline Phosphatase 92, Total Creatine Kinase 89, CK-MB (CK-2) 0.7 D, CK-MB (CK-2) Rel Index 0.8, Troponin I < 0.02, Total Protein 7.5, Albumin 3.5, Globulin 4.0 H, Albumin/Globulin Ratio 0.9 L 02/08/18 00:50: Lactic Acid 1.3 02/08/18 03:50: Troponin I < 0.02 Result diagrams: 02/08/18 00:50 02/08/18 00:50 Orders (Tests/Meds): ED MEDICATIONS Discontinued Medications Generic Name Dose Route Start Last Admin Trade Name Elle PRN Reason Stop Dose Admin Aspirin 243 mg 02/08/18 00:35 02/08/18 01:00 Aspirin 81mg Chewable Tablet PO 02/08/18 00:36 243 mg ONCE ONE Administration Sodium Chloride 1,000 mls @ 999 mls/hr 02/08/18 01:45 02/08/18 01:45 Sod Chlor 0.9% 1000ml Bag IV 02/08/18 02:45 999 mls/hr .Q1H1M GERALDO Administration ORDERS Category Date Time Status XR chest portable Stat Exams 02/08/18 00:25 Taken Blood Culture Stat Micro 02/08/18 00:55 Received - Radiology Data #1 Image(s): Chest Image Reviewed: Yes I reviewed the patient's radiology image Preliminary Findings: Abnormal (nonspecific) - ECG Data Tracing #1 I reviewed this ECG and interpreted as documented below: Normal Sinus Rhythm: Yes Ischemic changes: non-specific ST-T wave changes - Physician Consults Physician Consulted: marianne Reason -: Pt condition Chest Pain HPI - General Chief Complaint: Chest Pain Stated Complaint: chest pain Time Seen by Provider: 02/08/18 02:17 Mode of Arrival: Ambulatory Source of Information: Patient, Spouse, Medical Record Limitations: No Limitations Description of Symptoms (Recalled from ER Triage Doc. by RN): Pt reports sharp chest pain in the center of the chest that started just prior to coming in. Denies radiaing pain, nausea, and difficulty breathing. reports cough and congestion for the past few days. - History of Present Illness HPI narrati
--- NOTE | 2018-02-08 02:24 | ED_ITS ---
ED Disposition Clinical Impression: Bronchitis, Atypical chest pain Disposition: Home, Self-Care Condition on Discharge: Good Instructions: DI for Atypical Chest Pain Additional Instructions: use meds and call pcp for follow up Prescriptions: levoFLOXacin [Levaquin 500mg tab] 500 mg PO DAILY #7 tab Referrals: Gilbert Gutierrez MD [Primary Care Provider] - - Critical Care Critical Care Time: No Attestation: On 02/08/18, the high probability of a clinically significant, sudden or life threatening deterioration of the following system(s) required my full and direct attention, intervention and personal management. The time I documented below is in addition to time spent performing reported procedures but includes the following listed in this critical care notation. Medical Decision Making - Medical Records Medical records reviewed: Yes: I reviewed the patient's medical records. - [place] Inquiry Pt receiving controlled substance: No Vital Signs: 02/08/18 00:40 02/08/18 01:36 Temperature 98.1 F 98.1 F Temperature Source Oral Oral Pulse Rate [Right Radial] 61 66 Respiratory Rate 14 14 Blood Pressure [Right Arm] 154/88 121/79 Blood Pressure Mean [Right Arm] 110 93 Blood Pressure Source [Right Arm] Automatic Cuff Automatic Cuff Blood Pressure Position [Right Arm] Sitting Sitting 02 Sat by Pulse Oximetry 96 92 L Oxygen Delivery Method Room Air Room Air - Lab Data Lab results reviewed: Yes: I reviewed the patient's lab results. Lab Results 02/08/18 00:50: WBC 9.9, RBC 4.95, Hgb 15.2, Hct 45.6, MCV 92.1, MCH 30.7, MCHC 33.3, RDW 13.8, Plt Count 185, MPV 9.0, Neut % (Auto) 47.0, Lymph % (Auto) 41.2 , [place] % (Auto) 8.9, Eos % (Auto) 2.4, Baso % (Auto) 0.4, Neut # (Auto) 4.7, Lymph # (Auto) 4.1, [place] # (Auto) 0.9, Eos # (Auto) 0.2, Baso # (Auto) 0.0 02/08/18 00:50: Sodium 142, Potassium 3.8, Chloride 106, Carbon Dioxide 28, Anion Gap 11.8, BUN 15, Creatinine 1.17, Estimated Creat Clear 72, Estimated GFR 62, Est GFR ( Amer) 75, Glucose 100, Calcium 8.7, Total Bilirubin 0.2 , AST 17, ALT 22, Alkaline Phosphatase 92, Total Creatine Kinase 89, CK-MB (CK-2 ) 0.7 D, CK-MB (CK-2) Rel Index 0.8, Troponin I < 0.02, Total Protein 7.5, Albumin 3.5, Globulin 4.0 H, Albumin/Globulin Ratio 0.9 L 02/08/18 00:50: Lactic Acid 1.3 02/08/18 03:50: Troponin I < 0.02 Result diagrams: 02/08/18 00:50 02/08/18 00:50 Orders (Tests/Meds): ED MEDICATIONS Discontinued Medications Generic Name Dose Route Start Last Admin Trade Name Freq PRN Reason Stop Dose Admin Aspirin 243 mg 02/08/18 00:35 02/08/18 01:00 Aspirin 81mg Chewable Tablet PO 02/08/18 00:36 243 mg ONCE ONE Administration Sodium Chloride 1,000 mls @ 999 mls/hr 02/08/18 01:45 02/08/18 01:45 Sod Chlor 0.9% 1000ml Bag IV 02/08/18 02:45 999 mls/hr .Q1H1M GERALDO Administration ORDERS Category Date Time Status XR chest portable Stat Exams 02/08/18 00:25 Taken Blood Culture Stat Micro 02/08/18 00:55 Received - Radiology Data #1 Image(s): Chest Image Reviewed: Yes I reviewed the patient's radiology image Preliminary Findings: Abnormal (nonspecific) - ECG Data Tracing #1 I reviewed this ECG and interpreted as documented below: Normal Sinus Rhythm: Yes Ischemic changes: non-specific ST-T wave changes
[2018-02-08 04:44] LABS: Troponin I < 0.02 ng/ml (0.00-0.06)
[2018-02-08 05:19] VITALS: BP 130/71; PULSE 66; RESP 14; TEMP 36.7; O2SAT 94
== END 2018-02-08 05:21 | disposition home or self-care (01) ==
PROVIDERS: Emergency Provider Emergency Medicine; Family Provider Internal Medicine Adolescent Medicine; PCP Internal Medicine Adolescent Medicine
DX: J20.9 Acute bronchitis, unspecified (principal); R07.89 Other chest pain; I25.10 Atherosclerotic heart disease of native coronary artery without angina pectoris; Z95.0 Presence of cardiac pacemaker; I25.2 Old myocardial infarction; Z87.891 Personal history of nicotine dependence; E78.5 Hyperlipidemia, unspecified; Z79.82 Long term (current) use of aspirin
CPT/HCPCS: 71045; 80053; 82550; 82553; 83605; 84484; 85025; 87040; 93005; 96365; 96375; 99284

== ENCOUNTER → 2018-08-22 09:53 | Outpatient (CLI) | payer MEDICARE, OTHER, SELFPAY ==
--- NOTE | 2018-08-22 10:03 | XR_ITS ---
XR chest 2V HISTORY: ITS.REASON: COUGH ORDERING PHYSICIAN: Gilbert Gutierrez MD PATIENT AGE: 68 years COMPARISON: 02/08/2018 FINDINGS: The cardiomediastinal silhouette and pulmonary vascularity are within normal limits. There is a right ventricular pacemaker from the left subclavian approach. The lungs are clear without infiltrates, suspicious nodules, or pleural effusions. No acute bony abnormalities. IMPRESSION: No change with no acute finding
== END ==
PROVIDERS: PCP Internal Medicine Adolescent Medicine; Visit Provider Internal Medicine Adolescent Medicine
DX: R05 Cough (principal)
CPT/HCPCS: 71046

== ENCOUNTER → 2020-01-18 12:04 | Outpatient (CLI) | payer MEDICARE, OTHER, SELFPAY ==
[2020-01-18 12:35] VITALS: BP 126/77; PULSE 70; RESP 22; TEMP 37.2; O2SAT 100
[2020-01-18 12:37] VITALS: BMI 25.9
--- NOTE | 2020-01-18 12:39 | XR_ITS ---
PROCEDURE: XR CHEST PORTABLE CLINICAL HISTORY: Fever/Dehydration COMPARISON: CXR2V XR chest 2V from 11/14/2017 CXR1VP XR chest portable from 02/08/2018 CXR2V XR chest 2V from 08/22/2018 FINDINGS: Normal heart size. RV pacemaker is present from left subclavian approach. Patchy density is present in the right lung base and may be due to small area of atelectasis. The remaining lungs are clear. No acute bony abnormalities. IMPRESSION: Mild right basilar atelectasis Dictated by: Angel Hernandez MD 01/18/2020 13:40 Electronically signed by Angel Hernandez MD in [facility] 01/18/2020 13:40
[2020-01-18 13:25] VITALS: BP 131/74; PULSE 78; RESP 20; TEMP 37.2; O2SAT 95
[2020-01-18 13:32] LABS: Adenovirus,PCR Not Detected (NotDetected); Bordetella Pertussis Not Detected (NotDetected); Chlamydophila Pneumoniae, PCR Not Detected (NotDetected); Coronavirus 229E Not Detected (NotDetected); Coronavirus NL63 Not Detected (NotDetected); Coronavirus OC43 Not Detected (NotDetected); Coronovirus HKU1,PCR Not Detected (NotDetected); Human Metapneumovirus Not Detected (NotDetected); Influenza A, PCR Not Detected (NotDetected); Influenza AH1, 2009 Not Detected (NotDetected); Influenza AH1, PCR Not Detected (NotDetected); Influenza AH3,PCR Not Detected (NotDetected); Influenza B, PCR Not Detected (NotDetected); Mycoplasma Pneumoniae, PCR Not Detected (NotDetected); Parainfluenza 1, PCR Not Detected (NotDetected); Parainfluenza 2, PCR Not Detected (NotDetected); Parainfluenza 3, PCR Not Detected (NotDetected); Parainfluenza 4, PCR Not Detected (NotDetected); Respiratory Syncytial Virus Not Detected (NotDetected); Rhinovirus/Enterovirus Not Detected (NotDetected)
[2020-01-18 13:38] LABS: Basophils % 0.4 % (0.1-2.0); Eosinophils # 0.2 K/mm3 (0.0-0.4); Eosinophils % 2.1 % (0.1-12.0); Hematocrit 51.2 % (42.0-52.0); Hemoglobin 16.7 g/dL (14.1-18.0); Lymphocytes # 1.5 K/mm3 (0.7-4.5); Lymphocytes % 18.7 % (10-50); Mean Corpuscular HGB Conc 32.5 g/dL (31.8-35.4); Mean Corpuscular Hemoglobin 30.5 pg (27.0-31.2); Mean Corpuscular Volume 93.8 fl (80-94); Mean Platelet Volume 8.8 fl (7.4-10.4); Monocytes # 0.7 K/mm3 (0.1-1.0); Monocytes % 9.2 % (1.7-9.3); Neutrophils # 5.6 K/mm3 (1.8-7.8); Neutrophils % 69.6 % (37.0-80.0); Platelet Count 215 K/mm3 (142-424); Red Blood Count 5.46 M/mm3 (4.60-6.20); Red Cell Distribution Width 13.4 % (11.5-17.5)
[2020-01-18 13:45] VITALS: BP 140/75; PULSE 74; RESP 20; TEMP 37; O2SAT 94
[2020-01-18 13:49] LABS: Chloride 99 mmol/L (98-107); Sodium 141 mmol/L (136-145)
[2020-01-18 13:50] LABS: Potassium 3.8 mmoL/L (3.5-5.1)
[2020-01-18 13:52] LABS: Alanine Aminotransferase 15 U/L (12-78); Albumin Level 4.2 g/dl (3.5-5.0); Alkaline Phosphatase 96 U/L (38-126); Anion Gap 14.8 mEq/L (5-15); Aspartate Amino Transferase 21 U/L (17-59); Bilirubin,Total 1.1 mg/dl (0.2-1.3); Blood Urea Nitrogen 16 mg/dl (9-20); Calcium 9.2 mg/dl (8.4-10.2); Carbon Dioxide 31 mmol/L (22.0-30.0); Creatinine Clearance Estimated 45 mL/min (50-200); Estimated Glomerular Filt Rate 38 ml/min (>60); GFR (African American) 45 ML/MIN (>60); Globulin 4.2 g/dL (1.3-3.2); Glucose 117 mg/dl (74-100); Total Protein,Serum 8.4 g/dl (6.3-8.2)
[2020-01-18 14:30] VITALS: BP 148/81; PULSE 72; RESP 20; TEMP 37; O2SAT 94
== END ==
PROVIDERS: PCP Internal Medicine Adolescent Medicine; Visit Provider Internal Medicine Adolescent Medicine
DX: R50.9 Fever, unspecified (principal); E86.0 Dehydration
CPT/HCPCS: 36415; 71045; 80053; 85025; 87040; 87486; 87581; 87633; 87798; 96360

== ENCOUNTER → 2020-07-27 07:39 | Outpatient (CLI) | payer MEDICARE, OTHER, SELFPAY ==
--- NOTE | 2020-07-27 07:43 | US_ITS ---
PROCEDURE: US ABD. AORTA SCREENING CLINICAL INDICATION: H/O NICOTINE DEPENDENCE,SCREENING COMPARISON: No exams were available for comparison FINDINGS: No evidence of aortic aneurysm. Proximal common iliacs are unremarkable. IMPRESSION: Negative for aortic aneurysm Dictated by: Angel Hernandez MD 07/27/2020 17:06 Angel Hernandez MD in [facility] 07/27/2020 17:06
== END ==
PROVIDERS: PCP Internal Medicine Adolescent Medicine; Visit Provider Internal Medicine Adolescent Medicine
DX: Z87.891 Personal history of nicotine dependence (principal)
CPT/HCPCS: 76705

== ENCOUNTER → 2020-10-19 09:56 | Outpatient (CLI) | payer MEDICARE, OTHER, SELFPAY ==
[2020-10-19 10:37] LABS: Basophils % 0.6 % (0.1-2.0); Eosinophils # 0.2 K/mm3 (0.0-0.4); Eosinophils % 3.5 % (0.1-12.0); Hematocrit 48.2 % (42.0-52.0); Hemoglobin 16.5 g/dL (14.1-18.0); Lymphocytes # 2.8 K/mm3 (0.7-4.5); Lymphocytes % 42.1 % (10-50); Mean Corpuscular HGB Conc 34.2 g/dL (31.8-35.4); Mean Corpuscular Hemoglobin 31.9 pg (27.0-31.2); Mean Corpuscular Volume 93.4 fl (80-94); Mean Platelet Volume 8.8 fl (7.4-10.4); Monocytes # 0.6 K/mm3 (0.1-1.0); Monocytes % 9.3 % (1.7-9.3); Neutrophils # 2.9 K/mm3 (1.8-7.8); Neutrophils % 44.5 % (37.0-80.0); Platelet Count 185 K/mm3 (142-424); Red Blood Count 5.16 M/mm3 (4.60-6.20); Red Cell Distribution Width 14.4 % (11.5-17.5); White Blood Count 6.5 K/mm3 (4.8-10.8)
[2020-10-19 10:54] LABS: Alanine Aminotransferase 25 U/L (12-78); Albumin Level 3.8 g/dl (3.5-5.0); Albumin/Globulin Ratio 1.4 (1.1-1.8); Alkaline Phosphatase 89 U/L (38-126); Anion Gap 8.9 mEq/L (5-15); Aspartate Amino Transferase 28 U/L (17-59); Bilirubin,Total 0.8 mg/dl (0.2-1.3); Blood Urea Nitrogen 14 mg/dl (9-20); Calcium 8.8 mg/dl (8.4-10.2); Carbon Dioxide 28 mmol/L (22.0-30.0); Chloride 106 mmol/L (98-107); Chol/HDL Ratio 2.7 (1-3.5); Cholesterol 146 mg/dl (140-200); Estimated Glomerular Filt Rate 60 ml/min (>60); GFR (African American) 72 ML/MIN (>60); Globulin 2.8 g/dL (1.3-3.2); Glucose 94 mg/dl (74-100); HDL Cholesterol 54 mg/dl (40-60); Potassium 3.9 mmoL/L (3.5-5.1); Sodium 139 mmol/L (136-145); Total Protein,Serum 6.6 g/dl (6.3-8.2); Triglycerides 106 mg/dl (30-150); VLDL Cholesterol 21 mg/dL (0-40)
[2020-10-19 11:05] LABS: Direct LDL Cholesterol 74.49 mg/dL (100-129)
[2020-10-19 11:24] LABS: 25-OH Vitamin D, Total < 12.8 ng/mL (30-100)
[2020-10-19 11:25] LABS: Thyroid Stimulating Hormone 5.53 uIU/mL (0.465-4.68)
[2020-10-19 11:44] LABS: Vitamin B12 370 pg/mL (239-931)
== END ==
PROVIDERS: Visit Provider Internal Medicine Adolescent Medicine
DX: I25.10 Atherosclerotic heart disease of native coronary artery without angina pectoris (principal); E78.00 Pure hypercholesterolemia, unspecified; R53.83 Other fatigue; E55.9 Vitamin D deficiency, unspecified
CPT/HCPCS: 36415; 80053; 80061; 82306; 82607; 84443; 85025

== ENCOUNTER → 2021-01-18 10:17 | Outpatient (CLI) | payer MEDICARE, OTHER, SELFPAY ==
[2021-01-18 10:41] LABS: Basophils % 0.5 % (0.1-2.0); Eosinophils # 0.2 K/mm3 (0.0-0.4); Eosinophils % 2.8 % (0.1-12.0); Hematocrit 48.1 % (42.0-52.0); Lymphocytes # 3.1 K/mm3 (0.7-4.5); Lymphocytes % 42.2 % (10-50); Mean Corpuscular HGB Conc 33.2 g/dL (31.8-35.4); Mean Corpuscular Hemoglobin 31.2 pg (27.0-31.2); Mean Corpuscular Volume 93.9 fl (80-94); Mean Platelet Volume 7.8 fl (7.4-10.4); Monocytes # 0.7 K/mm3 (0.1-1.0); Monocytes % 8.9 % (1.7-9.3); Neutrophils # 3.4 K/mm3 (1.8-7.8); Neutrophils % 45.8 % (37.0-80.0); Platelet Count 180 K/mm3 (142-424); Red Blood Count 5.12 M/mm3 (4.60-6.20); Red Cell Distribution Width 14.2 % (11.5-17.5); White Blood Count 7.4 K/mm3 (4.8-10.8)
[2021-01-18 11:02] LABS: Chloride 110 mmol/L (98-107); Sodium 145 mmol/L (136-145)
[2021-01-18 11:03] LABS: Potassium 4.3 mmoL/L (3.5-5.1)
[2021-01-18 11:05] LABS: Alanine Aminotransferase 28 U/L (12-78); Alkaline Phosphatase 95 U/L (38-126); Aspartate Amino Transferase 30 U/L (17-59); Bilirubin,Total 0.7 mg/dl (0.2-1.3); Blood Urea Nitrogen 14 mg/dl (9-20); Estimated Glomerular Filt Rate 60 ml/min (>60); GFR (African American) 72 ML/MIN (>60)
[2021-01-18 11:06] LABS: Albumin Level 3.9 g/dl (3.5-5.0); Albumin/Globulin Ratio 1.2 (1.1-1.8); Anion Gap 12.3 mEq/L (5-15); Calcium 9.1 mg/dl (8.4-10.2); Carbon Dioxide 27 mmol/L (22.0-30.0); Globulin 3.2 g/dL (1.3-3.2); Glucose 103 mg/dl (74-100); Total Protein,Serum 7.1 g/dl (6.3-8.2)
[2021-01-18 11:22] LABS: 25-OH Vitamin D, Total 94.7 ng/mL (30-100)
== END ==
PROVIDERS: Visit Provider Internal Medicine Adolescent Medicine
DX: E55.9 Vitamin D deficiency, unspecified (principal)
CPT/HCPCS: 36415; 80053; 82306; 85025

== ENCOUNTER → 2021-09-18 13:04 | Outpatient (CLI) | payer MEDICARE, OTHER, SELFPAY ==
[2021-09-18 13:38] LABS: Basophils # 0.1 K/mm3 (0-0.2); Basophils % 0.8 % (0.1-2.0); Eosinophils # 0.3 K/mm3 (0.0-0.4); Eosinophils % 4.1 % (0.1-12.0); Hematocrit 47.8 % (42.0-52.0); Hemoglobin 16.2 g/dL (14.1-18.0); Lymphocytes % 44.8 % (10-50); Mean Corpuscular HGB Conc 33.9 g/dL (31.8-35.4); Mean Corpuscular Hemoglobin 32.4 pg (27.0-31.2); Mean Corpuscular Volume 95.6 fl (80-94); Mean Platelet Volume 8.7 fl (7.4-10.4); Monocytes # 0.5 K/mm3 (0.1-1.0); Monocytes % 7.5 % (1.7-9.3); Neutrophils # 2.8 K/mm3 (1.8-7.8); Neutrophils % 42.9 % (37.0-80.0); Platelet Count 211 K/mm3 (142-424); Red Cell Distribution Width 14.1 % (11.5-17.5); White Blood Count 6.6 K/mm3 (4.8-10.8)
[2021-09-18 15:02] LABS: Alanine Aminotransferase 21 U/L (12-78); Albumin Level 4.1 g/dl (3.5-5.0); Albumin/Globulin Ratio 1.5 (1.1-1.8); Alkaline Phosphatase 91 U/L (38-126); Aspartate Amino Transferase 24 U/L (17-59); Bilirubin,Total 0.8 mg/dl (0.2-1.3); Blood Urea Nitrogen 14 mg/dl (9-20); Calcium 8.9 mg/dl (8.4-10.2); Carbon Dioxide 29 mmol/L (22.0-30.0); Chloride 107 mmol/L (98-107); Estimated Glomerular Filt Rate 66 ml/min (>60); GFR (African American) 80 ML/MIN (>60); Globulin 2.8 g/dL (1.3-3.2); Glucose 117 mg/dl (74-100); Magnesium 1.9 mg/dl (1.6-2.3); Sodium 143 mmol/L (136-145); Total Protein,Serum 6.9 g/dl (6.3-8.2)
[2021-09-18 15:32] LABS: Thyroid Stimulating Hormone 2.87 uIU/mL (0.465-4.68)
== END ==
PROVIDERS: Visit Provider Internal Medicine Adolescent Medicine
DX: G93.1 Anoxic brain damage, not elsewhere classified (principal); R41.89 Other symptoms and signs involving cognitive functions and awareness; Z79.899 Other long term (current) drug therapy
CPT/HCPCS: 36415; 80053; 83735; 84443; 85025

== ENCOUNTER → 2021-10-02 12:35 | Outpatient (CLI) | payer MEDICARE, OTHER, SELFPAY ==
--- NOTE | 2021-10-02 13:45 | CT_ITS ---
PROCEDURE: CT HEAD/BRAIN WO CON CLINICAL INDICATION: ANOXIC BRAIN DAMAGE COMPARISON: CT HDWO CT HEAD W/O CONTRAST from 01/23/2017 TECHNIQUE: Axial images obtained. All CT scans at the facility use one or more dose reduction, viz: automated exposure control, ma/kV adjustment per patient size (including targeted exams where dose is matched to indication, i.e. head), or iterative reconstruction technique. FINDINGS: No midline shift, mass effect, intracranial hemorrhage, hydrocephalus, or extra-axial fluid collection is evident. There is mild generalized atrophy. The ventricles are somewhat prominent and may be related to the underlying brain volume loss overall not significantly changed the calvarium has an unremarkable appearance. No mastoid effusion. No sinus air-fluid level. IMPRESSION: No change no acute finding. Generalized atrophy Dictated by: Angel Hernandez MD 10/03/2021 07:26 Angel Hernandez MD in [facility] 10/03/2021 07:26
== END ==
PROVIDERS: PCP Internal Medicine Adolescent Medicine; Visit Provider Internal Medicine Adolescent Medicine
DX: R41.89 Other symptoms and signs involving cognitive functions and awareness (principal); G93.1 Anoxic brain damage, not elsewhere classified
CPT/HCPCS: 70450; 95819

== ENCOUNTER 2022-10-18 00:04 | Emergency (ER) | payer MEDICARE, OTHER, SELFPAY ==
--- NOTE | 2022-10-18 00:01 | ECG_ITS ---
APPROVED REPORT Exam: Resting ECG HR:104 bpm ECG Measurements Heart Rate 104 AXES DE 206 P 69 QRSd 105 QRS -78 QT 334 T 77 QTc 394 Conclusion SINUS TACHYCARDIA LEFT ANTERIOR FASCICULAR BLOCK [QRS AXIS <= -45, QR IN I, RS IN II] Old anteroseptal changes ABNORMAL ECG UNCONFIRMED REPORT Electronically signed by : Gilbert Gutierrez MD 10/19/2022 16:53:26
[2022-10-18 00:05] VITALS: BP 163/95; PULSE 93; RESP 16; TEMP 36.6; O2SAT 93; BMI 28.4
--- NOTE | 2022-10-18 00:18 | XR_ITS ---
PROCEDURE INFORMATION: Exam: XR Chest Exam date and time: 10/18/2022 12:18 AM Age: 72 years old Clinical indication: Sternal or substernal pain; Prior surgery; Additional info: Chest pain TECHNIQUE: Imaging protocol: Radiologic exam of the chest. Views: 2 views. COMPARISON: CR XR CHEST PORTABLE 01/18/2020 1:31 PM FINDINGS: Tubes, catheters and devices: Left subclavian transvenous ventricular pacemaker is in expected position. Lungs: Unremarkable. No consolidation. Pleural spaces: Unremarkable. No pleural effusion. No pneumothorax. Heart/Mediastinum: Unremarkable. No cardiomegaly. Bones/joints: Unremarkable. IMPRESSION: No acute cardiopulmonary abnormality.
--- NOTE | 2022-10-18 00:23 | PC.NURSE ---
Pt came to nurse desk and advised, He has short term memory loss.
--- NOTE | 2022-10-18 00:24 | HMH.EDCP ---
Discharge Plan Disposition Patient Disposition: Home, Self-Care Chief Complaint: Chest Pain Prescriptions Prescriptions: No Action levofloxacin 500 MG tablet 500 mg PO DAILY atorvastatin 80 MG tablet 80 mg PO HS MDD 80 aspirin [Aspir-81] 81 MG tablet,delayed release (DR/EC) 81 mg PO DAILY MDD 81 Namzaric 1 EACH capsule,sprinkle,ER 24hr 1 ea PO HS MDD 28 Label Comments: 28/10 MG cyanocobalamin (vitamin B-12) [Vitamin B-12] 500 MCG tablet 500 mcg PO DAILY mirtazapine 30 MG tablet 15 mg PO HS Label Comments: 30 MG TABLETS, PATIENT TAKES 1/2 TAB (15 MG) Referrals Follow up/Referrals: Gilbert Gutierrez MD [Primary Care Provider] - See instructions Clinical Impressions Clinical Impression: Chest pain Instructions Patient Instructions: DI for Chest Pain Discharge ED Provider: Ari Fox Chest Pain HPI General Chief Complaint: Chest Pain Stated Complaint: chest pain Time Seen by Provider: 10/18/22 00:24 Mode of Arrival: Ambulatory Source of Information: Patient, Spouse and Medical Record Limitations: No Limitations Description of Symptoms (Recalled from ER Triage Doc. by RN): pt c/o chest pain the pt states 9/10 pain in his the left side of his chest stated a day or 2 ago. pt denies radiation of pain. pt has cardiac hx in [place] in 2016 and has a defibulator History of Present Illness HPI narrative: pt reported episode of lt sided chest pain tonight lasting 5 min - hx of cad - MD complaint: chest pain indicative of cardiac Onset (ago): hour(s) Duration: now resolved Activity at onset: during rest Pain location: left chest Severity: moderate Quality: dull Pain radiation: none Risk Factors for CAD: Hypertension and Family Hx of CAD Treatments prior to or on arrival for Cardiac Chest Pain: none JARRET Score for Non-Stemi Age of Patient: 70-79 years old Heart Rate: 90-109 bpm Systolic Blood Pressure: 140-159 mmHg Serum Creatinine: 1.20-1.59 mg/dl CHF [place] Class: I-No CHF Other Risk Factors: None Non-Stemi Risk Score: 124 Related Data Home Medications Medication Instructions Recorded Confirmed aspirin 81 mg tablet,delayed 81 mg PO DAILY Heart disease 11/12/17 10/18/22 release (Aspir-) atorvastatin 80 mg tablet 80 mg PO HS Cholesterol 11/12/17 10/18/22 memantine ER 28 mg-donepezil 10 mg 1 ea PO HS memory 11/12/17 10/18/22 capsule sprinkle,ext.release 24 hr (Namzaric) cyanocobalamin (vitamin B-12) 500 500 mcg PO DAILY Supplement 11/14/17 10/18/22 mcg tablet (Vitamin B-12) mirtazapine 30 mg tablet 15 mg PO HS Depression 11/14/17 10/18/22 levofloxacin 500 mg tablet 500 mg PO DAILY . 01/18/20 10/18/22 Allergies Allergy/AdvReac Type Severity Reaction Status Date / Time No Known Allergies Allergy Verified 11/13/17 23:48 [facility] Disclaimer: The information contained in this section may have been updated after the patient was seen, as this information can be updated by other users. Social History Smoking Status: Current every day smoker tobacco type: cigarettes packs per day: 1 second hand exposure: No alcohol intake: never current occupational status: retired Travel in the last 8 weeks: None household members: spouse housing: house caffeine: Yes ROS Obtained: Yes All systems reviewed & no additional complaints except as documented Physical Exam General General appearance: alert Head Head exam: normocephalic Eye Eye exam: Present PERRL and EOMI ENT ENT exam: Present mucous membranes moist Neck Neck exam: Present trachea midline Respiratory Respiratory exam: Present normal lung sounds bilaterally; Absent respiratory distress Cardiovascular Cardiovascular exam: Present regular rate, systolic murmur and +S4 Abdominal Exam Abdominal exam: Present soft; Absent tenderness Extremities Exam Extremities exam: Present full ROM Neurological Exam Neurological exam: Present alert, oriented X3 and CN II-XII intact
--- NOTE | 2022-10-18 00:26 | PC.NURSE ---
Pt gone to RAD for xray
--- NOTE | 2022-10-18 00:30 | PC.NURSE ---
PT back from RAD
[2022-10-18 00:31] VITALS: BP 159/95; PULSE 119; O2SAT 90
[2022-10-18 00:32] LABS: Influenza A, PCR Not Detected (NotDetected); Influenza B, PCR Not Detected (NotDetected)
[2022-10-18 00:33] LABS: Alanine Aminotransferase 29 U/L (12-78); Albumin Level 4.3 g/dl (3.5-5.0); Albumin/Globulin Ratio 1.4 (1.1-1.8); Alkaline Phosphatase 118 U/L (38-126); Anion Gap 14.8 mEq/L (5-15); Aspartate Amino Transferase 36 U/L (17-59); Bilirubin,Total 0.8 mg/dl (0.2-1.3); Blood Urea Nitrogen 9 mg/dl (9-20); Calcium 8.8 mg/dl (8.4-10.2); Carbon Dioxide 24 mmol/L (22.0-30.0); Chloride 106 mmol/L (98-107); Creatinine Clearance Estimated 73 mL/min (50-200); Estimated Glomerular Filt Rate 60 ml/min (>60); GFR (African American) 72 ML/MIN (>60); Glucose 122 mg/dl (74-100); Potassium 3.8 mmoL/L (3.5-5.1); Sodium 141 mmol/L (136-145); Total Protein,Serum 7.3 g/dl (6.3-8.2)
[2022-10-18 00:41] LABS: Basophils # 0.1 K/mm3 (0-0.2); Basophils % 0.9 % (0.1-2.0); Eosinophils # 0.2 K/mm3 (0.0-0.4); Eosinophils % 2.2 % (0.1-12.0); Lymphocytes # 1.6 K/mm3 (0.7-4.5); Lymphocytes % 20.5 % (10-50); Mean Corpuscular HGB Conc 32.7 g/dL (31.8-35.4); Mean Corpuscular Hemoglobin 31.3 pg (27.0-31.2); Mean Corpuscular Volume 95.7 fl (80-94); Mean Platelet Volume 9.1 fl (7.4-10.4); Monocytes # 0.5 K/mm3 (0.1-1.0); Monocytes % 6.4 % (1.7-9.3); Neutrophils # 5.3 K/mm3 (1.8-7.8); Neutrophils % 69.9 % (37.0-80.0); Platelet Count 170 K/mm3 (142-424); Red Blood Count 5.43 M/mm3 (4.60-6.20); Red Cell Distribution Width 14.1 % (11.5-17.5); White Blood Count 7.6 K/mm3 (4.8-10.8)
[2022-10-18 00:45] LABS: Troponin I < 0.01 ng/ml (0.00-0.034)
[2022-10-18 01:00] VITALS: BP 132/83; PULSE 112; O2SAT 91
[2022-10-18 01:20] LABS: Coronavirus 19, PCR Detected (NotDetected)
[2022-10-18 01:51] VITALS: BP 136/77; PULSE 110; RESP 16; TEMP 36.6; O2SAT 93
== END 2022-10-18 02:05 | disposition home or self-care (01) ==
PROVIDERS: Emergency Provider Emergency Medicine; PCP Internal Medicine Adolescent Medicine
DX: R07.9 Chest pain, unspecified (principal); I25.2 Old myocardial infarction; F17.210 Nicotine dependence, cigarettes, uncomplicated; Z79.82 Long term (current) use of aspirin; Z79.899 Other long term (current) drug therapy; Z95.810 Presence of automatic (implantable) cardiac defibrillator; Z82.49 Family history of ischemic heart disease and other diseases of the circulatory system
CPT/HCPCS: 71046; 80053; 84484; 85025; 93005; 99284; C9803; U0003; U0005

== ENCOUNTER 2022-11-26 10:50 | Outpatient (CLI) | payer MEDICARE, OTHER, SELFPAY ==
[2022-11-26 13:01] LABS: PHA INR Fingerstick 1.1 (0.9-1.1)
== END 2022-11-26 13:23 ==
LOC: ACC 10:51
PROVIDERS: PCP Internal Medicine Adolescent Medicine; Visit Provider Internal Medicine Adolescent Medicine
DX: Z51.81 Encounter for therapeutic drug level monitoring (principal); Z79.01 Long term (current) use of anticoagulants
CPT/HCPCS: 85610; 99211; G0463

== ENCOUNTER 2022-11-30 11:42 | Outpatient (CLI) | payer MEDICARE, OTHER, SELFPAY ==
[2022-11-30 13:18] LABS: PHA INR Fingerstick 2.7 (0.9-1.1)
== END 2022-11-30 15:21 ==
LOC: ACC 11:44
PROVIDERS: PCP Internal Medicine Adolescent Medicine; Visit Provider Internal Medicine Adolescent Medicine
DX: Z51.81 Encounter for therapeutic drug level monitoring (principal); Z79.01 Long term (current) use of anticoagulants
CPT/HCPCS: 85610; 99211; G0463

== ENCOUNTER 2022-12-05 11:45 | Outpatient (CLI) | payer MEDICARE, OTHER, SELFPAY ==
[2022-12-05 16:15] LABS: PHA INR Fingerstick 3.7 (0.9-1.1)
== END 2022-12-05 16:21 ==
PROVIDERS: PCP Internal Medicine Adolescent Medicine; Visit Provider Internal Medicine Adolescent Medicine
DX: Z51.81 Encounter for therapeutic drug level monitoring (principal); Z79.01 Long term (current) use of anticoagulants
CPT/HCPCS: 85610; 99211; G0463

== ENCOUNTER → 2022-12-14 12:53 | Outpatient (CLI) | payer MEDICARE, OTHER, SELFPAY ==
[2022-12-14 16:23] LABS: PHA INR Fingerstick 3.9 (0.9-1.1)
== END ==
PROVIDERS: PCP Internal Medicine Adolescent Medicine; Visit Provider Internal Medicine Adolescent Medicine
DX: Z51.81 Encounter for therapeutic drug level monitoring (principal); Z79.01 Long term (current) use of anticoagulants
CPT/HCPCS: 85610; 99211; G0463

== ENCOUNTER 2023-01-04 12:42 | Outpatient (CLI) | payer MEDICARE, OTHER, SELFPAY ==
[2023-01-04 13:25] LABS: PHA INR Fingerstick 3.1 (0.9-1.1)
== END 2023-01-04 13:30 ==
LOC: ACC 12:43
PROVIDERS: PCP Internal Medicine Adolescent Medicine; Visit Provider Internal Medicine Adolescent Medicine
DX: Z51.81 Encounter for therapeutic drug level monitoring (principal); Z79.01 Long term (current) use of anticoagulants
CPT/HCPCS: 85610; 99211; G0463

== ENCOUNTER 2023-02-01 12:49 | Outpatient (CLI) | payer MEDICARE, OTHER, SELFPAY ==
[2023-02-01 14:07] LABS: PHA INR Fingerstick 3.2 (0.9-1.1)
== END 2023-02-01 15:16 ==
LOC: ACC 12:51
PROVIDERS: PCP Internal Medicine Adolescent Medicine; Visit Provider Internal Medicine Adolescent Medicine
DX: Z51.81 Encounter for therapeutic drug level monitoring (principal); Z79.01 Long term (current) use of anticoagulants
CPT/HCPCS: 85610; 99211; G0463

== ENCOUNTER 2023-03-01 13:11 | Outpatient (CLI) | payer MEDICARE, OTHER, SELFPAY ==
[2023-03-01 13:28] LABS: PHA INR Fingerstick 2.3 (0.9-1.1)
== END 2023-03-01 13:31 ==
LOC: ACC 13:12
PROVIDERS: PCP Internal Medicine Adolescent Medicine; Visit Provider Internal Medicine Adolescent Medicine
DX: Z51.81 Encounter for therapeutic drug level monitoring (principal); Z79.01 Long term (current) use of anticoagulants
CPT/HCPCS: 85610; 99211; G0463

== ENCOUNTER 2023-03-29 12:59 | Outpatient (CLI) | payer MEDICARE, OTHER, SELFPAY ==
[2023-03-29 13:32] LABS: PHA INR Fingerstick 3.4 (0.9-1.1)
== END 2023-03-29 13:34 ==
LOC: ACC 13:00
PROVIDERS: PCP Internal Medicine Adolescent Medicine; Visit Provider Internal Medicine Adolescent Medicine
DX: Z51.81 Encounter for therapeutic drug level monitoring (principal); Z79.01 Long term (current) use of anticoagulants
CPT/HCPCS: 85610; 99211; G0463

== ENCOUNTER 2023-04-19 13:14 | Outpatient (CLI) | payer MEDICARE, OTHER, SELFPAY | END 2023-04-19 15:51 | LOC: ACC 13:15 | PROVIDERS: PCP Internal Medicine Adolescent Medicine; Visit Provider Internal Medicine Adolescent Medicine | DX: Z51.81 Encounter for therapeutic drug level monitoring (principal); Z79.01 Long term (current) use of anticoagulants | CPT/HCPCS: 85610; 99211; G0463 ==

== ENCOUNTER → 2023-04-26 14:43 | Outpatient (CLI) | payer MEDICARE, OTHER, SELFPAY ==
[2023-04-26 14:46] LABS: Microscopic, Urine URINE MICROSCOPIC (MICROSCOPIC)
[2023-04-26 16:18] LABS: Appearance,Urine CLOUDY (Clear); Bilirubin,Urine Negative (Negative); Blood, Urine Negative (Negative); Color,Urine YELLOW (Yellow); Glucose,Urine (UA) Negative (Negative); Ketones,Urine Negative (Negative); Leukocyte Esterase,Urine Negative (Negative); Nitrate,Urine Negative (Negative); Protein,Urine Negative (Negative); Specific Gravity, Urine >= 1.030 (1.005-1.030)
[2023-04-26 16:37] LABS: Bacteria,Urine 4+ /lpf; Squamous Epithelial Cell,Urine Occasional #/hpf (0-5); WBC,Urine Occasional #/hpf (0-3)
== END ==
PROVIDERS: PCP Internal Medicine Adolescent Medicine; Visit Provider Internal Medicine Adolescent Medicine
DX: R30.0 Dysuria (principal)
CPT/HCPCS: 81001; 87086

== ENCOUNTER 2023-05-17 12:53 | Outpatient (CLI) | payer MEDICARE, OTHER, SELFPAY ==
[2023-05-17 13:59] LABS: PHA INR Fingerstick 2.1 (0.9-1.1)
== END 2023-05-17 15:04 ==
LOC: ACC 12:54
PROVIDERS: PCP Internal Medicine Adolescent Medicine; Visit Provider Internal Medicine Adolescent Medicine
DX: Z79.01 Long term (current) use of anticoagulants (principal); Z51.81 Encounter for therapeutic drug level monitoring
CPT/HCPCS: 85610; 99211; G0463

== ENCOUNTER 2023-06-28 13:08 | Outpatient (CLI) | payer MEDICARE, OTHER, SELFPAY ==
[2023-06-28 14:40] LABS: PHA INR Fingerstick 2.1 (0.9-1.1)
== END 2023-06-28 14:43 ==
LOC: ACC 13:08
PROVIDERS: PCP Internal Medicine Adolescent Medicine; Visit Provider Internal Medicine Adolescent Medicine
DX: Z79.01 Long term (current) use of anticoagulants (principal); Z51.81 Encounter for therapeutic drug level monitoring
CPT/HCPCS: 85610; 99211; G0463

== ENCOUNTER 2023-08-09 13:01 | Outpatient (CLI) | payer MEDICARE, OTHER, SELFPAY ==
--- OUTSIDE RECORDS SUMMARY | 2023-08-09 13:04 | XMS_ITS | Summary of Care ---
Author Name Unknown Organization [facility] Address [address] [place] [address]- Encounter 09/21/16 - 09/21/16 [facility] [address] [place] [address] Discharge Disposition: Discharged to Home or Self Care Attending Physician: Abby Ponce MD Referring Physician: Abby Ponce MD Vital Signs Most recent to oldest [Reference Range]: 1 Peripheral Pulse Rate [60-100 bpm] 62 bp m (09/21/16 2:16 PM) Blood Pressure [90-140/60-90 mmHg] 92/60 mmHg (09/21/16 2:16 PM) Problem List Condition Effective Dates Status Health Status Inform ant Abnormal gait due to impairm ent of balance(Confirmed) Active Aphasia(Confirmed) Active Cognitive impairment(Confirmed) Active Dysphagia(Confirmed) Resolved impaired functional mobility status(Confirmed) Active Self-care disability(Confirmed) Active Allergies, Adverse Reactions, Alerts Substance Reaction Severity Status No Known Allergies Active Medications acetaminophen 325 mg oral tablet 650 mg, = 2 tab, Tab, Oral, q4hr PRN, Refills 0, Pain Start Date: 01/02/16 Status: Ordered Apo-Mirtazapine 30 mg oral tablet BID, Refills 0, 1/2 tab Start Date: 09/21/16 Status: Ordered Aricept 5 mg oral tablet 5 mg, = 1 tab, Tab, Oral, QHS, 30 tab, Refills 0, Print Requisition, 0 Start Date: 09/21/16 Stop Date: 10/21/16 Status: Ordered aspirin 81 mg oral tablet, chewable 81 mg, = 1 tab, Tab-Chew, Chewed, Daily, 30 tab, Refills 2, Print Requisition, 2 Start Date: 01/02/16 Status: Ordered atorvastatin 80 mg oral tablet 80 mg, = 1 tab, Oral, QHS, 30 tab, Refills 2, Print Requisition, 2 Start Date: 01/02/16 Status: Ordered Brilinta (ticagrelor) 90 mg oral tablet mg, tab, Oral, BID, Refills 0 Start Date: 09/21/16 Status: Ordered carvedilol 6.25 mg oral tablet 6.25 mg, 1 tab, Tab, Oral, BIDPC, 60 tab, Refills 2, Print Requisition, 2 Start [place]
[2023-08-09 13:30] LABS: PHA INR Fingerstick 2.5 (0.9-1.1)
== END 2023-08-09 13:32 ==
LOC: ACC 13:02
PROVIDERS: PCP Internal Medicine Adolescent Medicine; Visit Provider Internal Medicine Adolescent Medicine
DX: Z79.01 Long term (current) use of anticoagulants (principal); Z51.81 Encounter for therapeutic drug level monitoring
CPT/HCPCS: 85610; 99211; G0463

== ENCOUNTER 2023-09-20 12:55 | Outpatient (CLI) | payer MEDICARE, OTHER, SELFPAY ==
[2023-09-20 15:29] LABS: PHA INR Fingerstick 2.9 (0.9-1.1)
== END 2023-09-20 16:11 ==
LOC: ACC 12:56
PROVIDERS: PCP Internal Medicine Adolescent Medicine; Visit Provider Internal Medicine Adolescent Medicine
DX: Z79.01 Long term (current) use of anticoagulants (principal); Z51.81 Encounter for therapeutic drug level monitoring
CPT/HCPCS: 85610; 99211; G0463

== ENCOUNTER 2023-10-30 13:27 | Outpatient (CLI) | payer MEDICARE, OTHER, SELFPAY ==
[2023-10-30 13:50] LABS: PHA INR Fingerstick 2.3 (0.9-1.1)
== END 2023-10-30 13:51 ==
LOC: ACC 13:27
PROVIDERS: PCP Internal Medicine Adolescent Medicine; Visit Provider Internal Medicine Adolescent Medicine
DX: Z79.01 Long term (current) use of anticoagulants (principal); Z51.81 Encounter for therapeutic drug level monitoring
CPT/HCPCS: 85610; 99211; G0463

== ENCOUNTER 2023-12-07 08:26 | Emergency (ER) | payer MEDICARE, OTHER, SELFPAY ==
[2023-12-07 08:29] VITALS: BP 160/88; PULSE 57; RESP 18; TEMP 36.4; O2SAT 96; BMI 28.7
--- NOTE | 2023-12-07 08:31 | CT_ITS ---
PROCEDURE INFORMATION: Exam: CT Head Without Contrast Exam date and time: 12/07/2023 9:01 AM Age: 73 years old Clinical indication: Injury or trauma; Fall; Blunt trauma (contusions or hematomas); Additional info: Fall out of bed on coumadin, head lac TECHNIQUE: Imaging protocol: Computed tomography of the head without contrast. Radiation optimization: All CT scans at this facility use at least one of these dose optimization techniques: automated exposure control; mA and/or kV adjustment per patient size (includes targeted exams where dose is matched to clinical indication); or iterative reconstruction. COMPARISON: CT HEAD/BRAIN WO CON 10/02/2021 1:58 PM FINDINGS: Brain: There is mild small vessel disease. There is no evidence of acute parenchymal hemorrhage, extra-axial collection, or acute infarction. There is no mass effect, midline shift, or downward herniation. Cerebral ventricles: No ventriculomegaly. Paranasal sinuses: Visualized sinuses are unremarkable. No fluid levels. Mastoid air cells: Visualized mastoid air cells are well aerated. Bones/joints: Unremarkable. No acute fracture. Soft tissues: Unremarkable. IMPRESSION: Mild small vessel disease. No evidence of acute intracranial process.
--- NOTE | 2023-12-07 08:31 | CT_ITS ---
PROCEDURE INFORMATION: Exam: CT Cervical Spine Without Contrast Exam date and time: 12/07/2023 9:03 AM Age: 73 years old Clinical indication: Injury or trauma; Fall; Blunt trauma and laceration; Not specified; Additional info: Fall out of bed on coumadin, head lac >65 TECHNIQUE: Imaging protocol: Computed tomography of the cervical spine without contrast. Radiation optimization: All CT scans at this facility use at least one of these dose optimization techniques: automated exposure control; mA and/or kV adjustment per patient size (includes targeted exams where dose is matched to clinical indication); or iterative reconstruction. COMPARISON: [facility] CT CERVICAL SPINE W/O CONT 05/30/2017 7:33 AM FINDINGS: Bones/joints: No acute fracture. Normal alignment. There is straightening of cervical lordosis. There is moderate to advanced degenerative disc disease at C6-C7. Lungs: Lung apices are normal. Soft tissues: Unremarkable. IMPRESSION: No acute findings.
--- NOTE | 2023-12-07 08:36 | ED_ITS ---
Discharge Plan Disposition Patient Disposition: Home, Self-Care Condition: Good Prescriptions Prescriptions: No Action levofloxacin 500 MG tablet 500 mg PO DAILY warfarin 5 mg Tablet 5 mg PO SUTUWETHSA warfarin 5 mg Tablet 2.5 mg PO MOFR atorvastatin 80 MG tablet 80 mg PO HS MDD 80 aspirin [Aspir-81] 81 MG tablet,delayed release (DR/EC) 81 mg PO DAILY MDD 81 Namzaric 1 EACH capsule,sprinkle,ER 24hr 1 ea PO HS MDD 28 Patient Comments: 28/10 MG cyanocobalamin (vitamin B-12) [Vitamin B-12] 500 MCG tablet 500 mcg PO DAILY mirtazapine 30 MG tablet 15 mg PO HS Patient Comments: 30 MG TABLETS, PATIENT TAKES 1/2 TAB (15 MG) Referrals Follow up/Referrals: Gilbert Gutierrez MD [Primary Care Provider] - See instructions Activity Restrictions/Add. Instructions Additional Instructions/Restrictions: You were evaluated in the emergency department today. Your INR is 2.93. Please follow-up closely with your primary care provider for monitoring of this. Keep your wound clean and dry. Allow the glue to fall off on its own. Do not pick at it. Return to the emergency department for new or worsening symptoms. Clinical Impressions Clinical Impression: Fall, Facial laceration Instructions Patient Instructions: DI for Laceration Repair-Skin Glue Discharge ED Provider: Deb Mascorro General Adult HPI General Chief complaint: Head Injury Stated complaint: AO fall facial lac Time Seen by Provider: 12/07/23 08:30 Mode of Arrival: Ambulatory Source of Information: Patient and Spouse Limitations: No Limitations Description of Symptoms (Recalled from ER Triage Doc. by RN): fell out of bed this morning. cut to r head. no loss of consciousness. no confusion. on warfarin History of Present Illness HPI narrative: This patient is a 73-year-old male with history of hypertension, hyperlipidemia, and chronic anticoagulation with warfarin because his states that he has a blood clot in his heart presenting to the emergency department for evaluation with concern for a fall out of bed. Patient's feet got tangled up in the blankets today, and he rolled out of bed, hitting the right side of his face. He suffered a laceration to his right alevism/cheek. He did not lose consciousness. No injuries noted and he states that he is feeling fine. He is unsure when his last tetanus shot was. He was well prior to this Related Data Home Medications Medication Instructions Recorded Confirmed aspirin 81 mg tablet,delayed 81 mg PO DAILY Heart disease 11/12/17 10/18/22 release (Aspir-) atorvastatin 80 mg tablet 80 mg PO HS Cholesterol 11/12/17 10/18/22 memantine ER 28 mg-donepezil 10 mg 1 ea PO HS memory 11/12/17 10/18/22 capsule sprinkle,ext.release 24 hr (Namzaric) cyanocobalamin (vitamin B-12) 500 500 mcg PO DAILY Supplement 11/14/17 10/18/22 mcg tablet (Vitamin B-12) mirtazapine 30 mg tablet 15 mg PO HS Depression 11/14/17 10/18/22 levofloxacin 500 mg tablet 500 mg PO DAILY . 01/18/20 10/18/22 warfarin 5 mg tablet 2.5 mg PO MOFR BLOOD PRESSURE 03/21/23 03/21/23 warfarin 5 mg tablet 5 mg PO SUTUWETHSA Blood thinner 03/21/23 03/21/23 Allergies Allergy/AdvReac Type Severity Reaction Status Date / Time No Known Allergies Allergy Verified 11/13/17 23:48 [facility] Disclaimer: The information contained in this section may have been updated after the patient was seen, as this information can be updated by other users. Social History Smoking Status: Never smoker second hand exposure: No alcohol intake: never current occupational status: retired Travel in the last 8 weeks: None household members: spouse housing: house caffeine: Yes ROS Obtained: Yes All systems reviewed & no additional complaints except as documented Physical Exam General General appearance: alert and in no apparent distress Head Head exam: normocephalic and other (superficial 5cm laceration to the R face extending from the alevism to the right cheek, hemostatic) Eye Eye exam: Present normal appearance, PERRL and EOMI ENT ENT exam: Present normal exam, normal oropharynx, mucous membranes moist and normal external ear exam Neck Neck exam: Present normal inspection, full ROM and trachea midline; Absent tenderness Chest Chest inspection: Present normal inspection and symmetric chest wall rise; Absent tenderness Respiratory Respiratory exam: Present normal lung sounds bilaterally; Absent respiratory d istress, wheezes, stridor or accessory muscle use Cardiovascular Cardiovascular exam: Present regular rate and normal rhythm Abdominal Exam Abdominal exam: Present soft; Absent distention, tenderness or guarding Extremities Exam Extremities exam: Present normal inspection, full ROM and normal capillary refill; Absent tenderness or edema Back Exam Back exam: Present normal inspection and full ROM; Absent tenderness Neurological Exam Neurological exam: Present alert, oriented X3, CN II-XII intact and normal gait; Absent motor sensory deficit Psychiatric Psychiatric exam: Present normal affect and normal mood Skin Skin exam: Present warm and dry Medical Decision Making Medical Records Medical records reviewed: Yes I reviewed the patient's medical records. [place] Inquiry Pt receiving controlled substance: No Vital Signs: 12/07/23 08:29 Temperature 97.5 F L Temperature Source Oral Pulse Rate [Right Radial] 57 L Respiratory Rate 18 Blood Pressure [Right Arm] 160/88 H Blood Pressure Mean [Right Arm] 112 02 Sat by Pulse Oximetry 96 Oxygen Delivery Method Room Air Lab Data Lab results reviewed: Yes I reviewed the patient's lab results. Lab Results 12/07/23 08:43: WBC 7.7, RBC 4.96, Hgb 15.8, Hct 46.4, MCV 93.5, MCH 31.9 H, MCHC 34.1, RDW 14.7, Plt Count 180, MPV 9.2, Neut % (Auto) 37.8, Lymph % (Auto) 46.7, Door % (Auto) 8.8, Eos % (Auto) 5.9, Baso % (Auto) 0.9, Neut # (Auto) 2.9, Lymph # (Auto) 3.6, Door # (Auto) 0.7, Eos # (Auto) 0.5 H, Baso # (Auto) 0.1, PT 29.5 H, INR 2.93 H, Sodium 141, Potassium 3.6, Chloride 109 H, Carbon Dioxide 29, Anion Gap 6.6, BUN 11, Creatinine 1.20, Estimated Creat Clear 70, Estimated GFR 59, Est GFR ( Amer) 72, Glucose 93, Calcium 8.3 L, Total Bilirubin 0.6, AST 28, ALT 23, Alkaline Phosphatase 86, Total Protein 6.3, Albumin 3.4 L, Globulin 2.9, Albumin/Globulin Ratio 1.2 12/07/23 08:43 12/07/23 08:43 Orders (Tests/Meds): ED MEDICATIONS Discontinued Medications Generic Name Dose Route Start Last Admin Trade Name Freq PRN Reason Stop Dose Admin Tetanus/Reduced Diphtheria/Acell Pertussis 0.5 ml 12/07/23 08:36 12/07/23 09:13 Tet/Diphth/Pert-Adult 0.5ml Syringe IM 12/07/23 08:37 0.5 ml .ONCE ONE Administration ORDERS Category Date Time Status CT cervical spine wo con Stat Cat Scan 12/07/23 08:[address] head/brain wo con Stat Cat Scan 12/07/23 08:31 Completed Complete Blood Count Auto Diff Stat Lab 12/07/23 08:43 Completed Comprehensive Metabolic Panel Stat Lab 12/07/23 08:43 Completed Prothrombin Time INR Stat Lab 12/07/23 08:43 Completed Medical Decision Narrative: In summary, this patient is a 73-year-old male presenting to the Emergency Department for evaluation of fall out of bed on Coumadin with a laceration to his right face. Differential diagnoses considered include but are not limited to laceration, abrasion, fracture, intracranial hemorrhage, supratherapeutic INR, polytrauma. Ruling out the most morbid conditions drove assessment. On exam, the patient is well-appearing and is neurologically at his baseline. He has a superficial laceration to the right side of his face that is hemostatic. No other concerns or injuries noted. Workup included CBC, CMP, INR, CT head without contrast, and CT C-spine without contrast. He was given Tdap given he is unsure when his last tetanus shot was.. His wound was cleaned thoroughly and repaired with glue given that it is very superficial and is already well-approximated. I independently interpreted CT scans prior to the radiologist read and noted no acute fracture or intracranial hemorrhage. Please see their read for final interpretation. Labs were obtained that demonstrated of 2.93, which is not concerning at this time. They already have follow-up scheduled next week for the. Patient's laceration was repaired with Dermabond. Please see procedure note for further documentation. At this time, feel that he is appropriate for discharge. They are given strict return precautions, instructed for close patient follow- up, the patient was discharged in stable condition after all questions were answered. Procedures Laceration Laceration 1: Site: face Side (If applicable): right Size (cm): 5 Description: irregular Depth: simple, single layer Pre-repair: wound explored, irrigated extensively and deep structures intact Skin layer closed with: Dermabond Critical Care Critical Care Time Critical Care Time: No
--- NOTE | 2023-12-07 08:45 | PC.NURSE ---
pt has laceration to right side religion. laceration cleaned with hibaclens and saline flush.
[2023-12-07 08:50] LABS: Basophils # 0.1 K/mm3 (0-0.2); Basophils % 0.9 % (0.1-2.0); Eosinophils # 0.5 K/mm3 (0.0-0.4); Eosinophils % 5.9 % (0.1-12.0); Hematocrit 46.4 % (42.0-52.0); Hemoglobin 15.8 g/dL (14.1-18.0); Lymphocytes # 3.6 K/mm3 (0.7-4.5); Lymphocytes % 46.7 % (10-50); Mean Corpuscular HGB Conc 34.1 g/dL (31.8-35.4); Mean Corpuscular Hemoglobin 31.9 pg (27.0-31.2); Mean Corpuscular Volume 93.5 fl (80-94); Mean Platelet Volume 9.2 fl (7.4-10.4); Monocytes # 0.7 K/mm3 (0.1-1.0); Monocytes % 8.8 % (1.7-9.3); Neutrophils # 2.9 K/mm3 (1.8-7.8); Neutrophils % 37.8 % (37.0-80.0); Platelet Count 180 K/mm3 (142-424); Red Blood Count 4.96 M/mm3 (4.60-6.20); Red Cell Distribution Width 14.7 % (11.5-17.5); White Blood Count 7.7 K/mm3 (4.8-10.8)
--- NOTE | 2023-12-07 08:52 | PC.NURSE ---
Dr. Mascorro at BS to glue laceration
--- NOTE | 2023-12-07 08:54 | PC.NURSE ---
Pt gone to RAD via stretcher
[2023-12-07 08:55] LABS: Chloride 109 mmol/L (98-107); Potassium 3.6 mmoL/L (3.5-5.1); Sodium 141 mmol/L (136-145)
[2023-12-07 08:57] LABS: Blood Urea Nitrogen 11 mg/dl (9-20); Creatinine Clearance Estimated 70 mL/min (50-200); Estimated Glomerular Filt Rate 59 ml/min (>60); GFR (African American) 72 ML/MIN (>60)
[2023-12-07 08:58] LABS: Alanine Aminotransferase 23 U/L (12-78); Albumin Level 3.4 g/dl (3.5-5.0); Albumin/Globulin Ratio 1.2 (1.1-1.8); Alkaline Phosphatase 86 U/L (38-126); Anion Gap 6.6 mEq/L (5-15); Aspartate Amino Transferase 28 U/L (17-59); Bilirubin,Total 0.6 mg/dl (0.2-1.3); Calcium 8.3 mg/dl (8.4-10.2); Carbon Dioxide 29 mmol/L (22.0-30.0); Globulin 2.9 g/dL (1.3-3.2); Glucose 93 mg/dl (74-100); Total Protein,Serum 6.3 g/dl (6.3-8.2)
[2023-12-07 09:00] LABS: INR 2.93 (0.9-1.1); Prothrombin Time 29.5 seconds (10.1-12.5)
--- NOTE | 2023-12-07 09:07 | PC.NURSE ---
Pt returned from RAD
[2023-12-07] MEDS: TET/DIPHTH/PERT-ADULT 0.5ML SYRINGE 0.5 ML IM (09:13)
[2023-12-07 09:24] VITALS: BP 154/80; PULSE 62; RESP 18; TEMP 36.4; O2SAT 96
== END 2023-12-07 09:30 | disposition home or self-care (01) ==
PROVIDERS: Emergency Provider Emergency Medicine; PCP Internal Medicine Adolescent Medicine
DX: S01.411A Laceration without foreign body of right cheek and temporomandibular area, initial encounter (principal); I10 Essential (primary) hypertension; E78.5 Hyperlipidemia, unspecified; Z79.01 Long term (current) use of anticoagulants; W06.XXXA Fall from bed, initial encounter
CPT/HCPCS: 12013; 70450; 72125; 80053; 85025; 85610; 90471; 90715; 99285

== ENCOUNTER 2023-12-13 13:21 | Outpatient (CLI) | payer MEDICARE, OTHER, SELFPAY | END 2023-12-13 15:22 | LOC: ACC 13:22 | PROVIDERS: PCP Internal Medicine Adolescent Medicine; Visit Provider Internal Medicine Adolescent Medicine | DX: Z79.01 Long term (current) use of anticoagulants (principal); Z51.81 Encounter for therapeutic drug level monitoring | CPT/HCPCS: 85610; 99211; G0463 ==

== ENCOUNTER 2024-01-10 12:19 | Outpatient (CLI) | payer MEDICARE, OTHER, SELFPAY ==
[2024-01-10 14:40] LABS: PHA INR Fingerstick 2.1 (0.9-1.1)
== END 2024-01-10 16:14 ==
LOC: ACC 12:21
PROVIDERS: PCP Internal Medicine Adolescent Medicine; Visit Provider Internal Medicine Adolescent Medicine
DX: Z79.01 Long term (current) use of anticoagulants (principal); Z51.81 Encounter for therapeutic drug level monitoring
CPT/HCPCS: 85610; 99211; G0463

== ENCOUNTER 2024-02-21 12:56 | Outpatient (CLI) | payer MEDICARE, OTHER, SELFPAY | END 2024-02-21 13:14 | LOC: ACC 12:58 | PROVIDERS: PCP Internal Medicine Adolescent Medicine; Visit Provider Internal Medicine Adolescent Medicine | DX: Z79.01 Long term (current) use of anticoagulants (principal) | CPT/HCPCS: 85610; 99211; G0463 ==

== ENCOUNTER 2024-04-03 13:03 | Outpatient (CLI) | payer MEDICARE, OTHER, SELFPAY ==
[2024-04-03 14:35] LABS: PHA INR Fingerstick 2.2 (0.9-1.1)
== END 2024-04-03 14:56 ==
LOC: ACC 13:04
PROVIDERS: PCP Internal Medicine Adolescent Medicine; Visit Provider Internal Medicine Adolescent Medicine
DX: Z79.01 Long term (current) use of anticoagulants (principal); Z51.81 Encounter for therapeutic drug level monitoring
CPT/HCPCS: 85610; 99211; G0463

== ENCOUNTER 2024-05-18 13:26 | Outpatient (CLI) | payer MEDICARE, OTHER, SELFPAY ==
[2024-05-18 14:56] LABS: PHA INR Fingerstick 1.8 (0.9-1.1)
== END 2024-05-18 14:58 ==
LOC: ACC 13:28
PROVIDERS: PCP Internal Medicine Adolescent Medicine; Visit Provider Internal Medicine Adolescent Medicine
DX: Z79.01 Long term (current) use of anticoagulants (principal); Z51.81 Encounter for therapeutic drug level monitoring
CPT/HCPCS: 85610; 99211; G0463

== ENCOUNTER 2024-06-29 12:52 | Outpatient (CLI) | payer MEDICARE, OTHER, SELFPAY ==
[2024-06-29 13:07] LABS: PHA INR Fingerstick 2.2 (0.9-1.1)
== END 2024-06-29 13:08 ==
LOC: ACC 12:53
PROVIDERS: PCP Internal Medicine Adolescent Medicine; Visit Provider Internal Medicine Adolescent Medicine
DX: Z79.01 Long term (current) use of anticoagulants (principal); Z51.81 Encounter for therapeutic drug level monitoring
CPT/HCPCS: 85610; 99211; G0463

== ENCOUNTER 2024-07-25 09:57 | Emergency (ER) | payer MEDICARE, OTHER, SELFPAY ==
[2024-07-25 09:57] VITALS: BP 137/84; PULSE 54; RESP 18; TEMP 36.6; O2SAT 98; BMI 24.4
--- NOTE | 2024-07-25 09:58 | ECG_ITS ---
APPROVED REPORT Exam: Resting ECG HR:53 bpm ECG Measurements Heart Rate 53 AXES [place] 205 P 21 QRSd 107 QRS -61 QT 447 T 64 QTc 429 Conclusion SINUS BRADYCARDIA WITH OCCASIONAL VENTRICULAR PREMATURE COMPLEXES LEFT ANTERIOR FASCICULAR BLOCK [QRS AXIS <= -45, QR IN I, RS IN II] ANTEROSEPTAL MYOCARDIAL INFARCTION , OF INDETERMINATE AGE [40+ ms Q WAVE IN V1-V4] ABNORMAL ECG No Stemi Electronically signed by : EVERARDO HERNANDEZ, 07/26/2024 01:25:49
--- NOTE | 2024-07-25 10:07 | XR_ITS ---
PROCEDURE INFORMATION: Exam: XR Chest Exam date and time: 07/25/2024 10:44 AM Age: 74 years old Clinical indication: Other: Pre syncope; Additional info: Pre-syncope TECHNIQUE: Imaging protocol: Radiologic exam of the chest. Views: 1 view. COMPARISON: CR XR CHEST 2V 10/18/2022 12:18 AM FINDINGS: Tubes, catheters and devices: Single lead left subclavian AICD. EKG leads. Lungs: Unremarkable. No consolidation. Pleural spaces: Unremarkable. No pleural effusion. No pneumothorax. Heart/Mediastinum: Unremarkable. No cardiomegaly. Vasculature: Atherosclerosis. Bones/joints: Unremarkable. IMPRESSION: No acute findings.
--- NOTE | 2024-07-25 10:08 | ED_ITS ---
Discharge Plan Disposition Patient Disposition: Home, Self-Care Prescriptions Prescriptions: No Action levofloxacin 500 MG tablet 500 mg PO DAILY warfarin 5 mg Tablet 5 mg PO SUTUWETHSA warfarin 5 mg Tablet 2.5 mg PO MOFR atorvastatin 80 MG tablet 80 mg PO HS MDD 80 aspirin [Aspir-81] 81 MG tablet,delayed release (DR/EC) 81 mg PO DAILY MDD 81 Namzaric 1 EACH capsule,sprinkle,ER 24hr 1 ea PO HS MDD 28 Patient Comments: 28/10 MG cyanocobalamin (vitamin B-12) [Vitamin B-12] 500 MCG tablet 500 mcg PO DAILY mirtazapine 30 MG tablet 15 mg PO HS Patient Comments: 30 MG TABLETS, PATIENT TAKES 1/2 TAB (15 MG) Referrals Follow up/Referrals: Provider,Referral, MD [Referring] - See instructions Activity Restrictions/Add. Instructions Additional Instructions/Restrictions: Follow-up with primary care doctor. Please return emerged part with any new, concerning, or worsening symptoms. Clinical Impressions Clinical Impression: Pre-syncope Heat exhaustion Qualifiers: Encounter type: initial encounter Qualified Code(s): T67.5XXA - Heat exhaustion, unspecified, initial encounter Instructions Patient Instructions: DI for Heat Exhaustion and Heat Stroke Print Language Print Language: Sami Discharge ED Provider: Feng Franco General Adult HPI General Chief complaint: Syncope Stated complaint: Syncope Time Seen by Provider: 07/25/24 10:00 Mode of Arrival: EMS Source of Information: Spouse History of Present Illness HPI narrative: This is a 74-year-old male with a past medical history of CAD s/p AICD placement and short-term memory issues who presents with a presyncopal episode. Was standing in line at a [employer] sale with a jacket on in the rain whenever family noticed that he looked like he was going to pass out. States that he looked very pale and weak. States that they caught him before he fell down to the ground. Never lost consciousness. Patient states that he had chest pain at about 1 AM this morning but does not recall this event. Family states that this is typical given his short-term memory issues. States that he is at his baseline mental status. Family states that they believe he just got overheated because he was standing outside of the jacket. States that he also has not eaten or drank anything today. States that his symptoms have already improved and route with EMS. Related Data Home Medications ?Medication ?Instructions ?Recorded ?Confirmed aspirin 81 mg tablet,delayed 81 mg PO DAILY Heart disease 11/12/17 10/18/22 release (Aspir-) atorvastatin 80 mg tablet 80 mg PO HS Cholesterol 11/12/17 10/18/22 memantine ER 28 mg-donepezil 10 mg 1 ea PO HS memory 11/12/17 10/18/22 capsule sprinkle,ext.release 24 hr (Namzaric) cyanocobalamin (vitamin B-12) 500 500 mcg PO DAILY Supplement 11/14/17 10/18/22 mcg tablet (Vitamin B-12) mirtazapine 30 mg tablet 15 mg PO HS Depression 11/14/17 10/18/22 levofloxacin 500 mg tablet 500 mg PO DAILY . 01/18/20 10/18/22 warfarin 5 mg tablet 2.5 mg PO MOFR BLOOD PRESSURE 03/21/23 03/21/23 warfarin 5 mg tablet 5 mg PO SUTUWETHSA Blood thinner 03/21/23 03/21/23 Allergies Allergy/AdvReac Type Severity Reaction Status Date / Time No Known Allergies Allergy Verified 11/13/17 23:48 [facility] Disclaimer: The information contained in this section may have been updated after the patient was seen, as this information can be updated by other users. Social History Smoking Status: Never smoker second hand exposure: No alcohol intake: never current occupational status: retired Travel in the last 8 weeks: None household members: spouse housing: house caffeine: Yes ROS Obtained: Yes All systems reviewed & no additional complaints except as documented Physical Exam General General appearance: alert and in no apparent distress Eye Eye exam: Present normal appearance, PERRL and EOMI Respiratory Respiratory exam: Present normal lung sounds bilaterally; Absent respiratory distress Cardiovascular Cardiovascular exam: Present regular rate and normal rhythm Abdominal Exam Abdominal exam: Present soft and distention; Absent tenderness, guarding or rebound Extremities Exam Extremities exam: Present normal inspection Neurological Exam Neurological exam: Present alert, CN II-XII intact and motor sensory deficit Skin Skin exam: Present warm and dry Medical Decision Making Medical Records Medical records reviewed: Yes I reviewed the patient's medical records. Screening: Per USPSTF and CDC recommendations, given the prevalence of disease in our region, it is our hospital?s policy to screen for HIV and viral Hepatitis for all patients aged 18 and over and those with ongoing risk factors. [place] Inquiry Pt receiving controlled substance: No Vital Signs: 07/25/24 09:57 07/25/24 10:15 07/25/24 10:31 Temperature 97.9 F Temperature Source Oral Pulse Rate 54 L 50 L Pulse Rate [Right] 54 L Respiratory Rate 18 14 16 Blood Pressure 139/70 106/60 L Blood Pressure [Right Arm] 137/84 Blood Pressure Mean 75 Blood Pressure Mean [Right Arm] 101 Blood Pressure Source [Right Arm] Automatic Cuff 02 Sat by Pulse Oximetry 98 96 98 Oxygen Delivery Method Room Air Room Air 07/25/24 11:00 07/25/24 11:30 07/25/24 13:09 Temperature 98 F Temperature Source Pulse Rate 51 L 53 L 52 L Pulse Rate [Right] Respiratory Rate 21 20 19 Blood Pressure 124/65 128/74 151/80 H Blood Pressure [Right Arm] Blood Pressure Mean Blood Pressure Mean [Right Arm] Blood Pressure Source [Right Arm] 02 Sat by Pulse Oximetry 95 99 Oxygen Delivery Method Room Air Room Air Room Air Lab Data Lab Results 07/25/24 10:06: WBC 6.7, RBC 4.64, Hgb 15.0, Hct 46.9, MCV 101.0 H, MCH 32.2 H, MCHC 31.9, RDW 14.5, Plt Count 155, MPV 9.0, Neut % (Auto) 40.2, Lymph % (Auto) 46.8, [place] % (Auto) 7.3, Eos % (Auto) 5.1, Baso % (Auto) 0.7, Neut # (Auto) 2.7, Lymph # (Auto) 3.1, [place] # (Auto) 0.5, Eos # (Auto) 0.3, Baso # (Auto) 0.0, Sodium 139, Potassium 3.8, Chloride 113 H, Carbon Dioxide 25, Anion Gap 4.8 L, BUN 15, Creatinine 1.20, Estimated Creat Clear 61, Estimated GFR 59, Est GFR ( Amer) 72, Glucose 99, Calcium 8.2 L, Total Bilirubin 0.7, AST 25, ALT 21, Alkaline Phosphatase 80, Troponin I < 0.01, Total Protein 6.2 L, Albumin 3.4 L, Globulin 2.8, Albumin/Globulin Ratio 1.2 09/21/24 10:06 07/25/24 10:06 Orders (Tests/Meds): ED MEDICATIONS Discontinued Medications Generic Name Dose Route Start Last Admin Trade Name Elle PRN Reason Stop Dose Admin Lactated Ringer's 500 mls @ 999 mls/hr 07/25/24 10:08 07/25/24 10:29 Lactated Ringer's 500ml IV 07/25/24 10:38 999 mls/hr .Q31M ONE Administration ORDERS Category Date Time Status Chest XR -- portable [XR chest portable] Stat Exams 07/25/24 10:07 Completed CBC w/Auto Diff [Complete Blood Count Auto Diff] Stat Lab 07/25/24 10:06 Completed CMP [Comprehensive Metabolic Panel] Stat Lab 07/25/24 10:06 Completed Troponin I Stat Lab 07/25/24 10:06 Completed ECG Data Tracing #1: I reviewed this ECG and interpreted as documented below: Sinus bradycardia at a rate of 53, left axis deviation, QTc 429, no STEMI Medical Decision Narrative: In summary, this 74-year-old male with a past medical history of CAD status post AICD placement and short-term memory issues presents to the emergency department today with presyncopal episode and chest pain. On initial evaluation patient is afebrile, nontachycardic, hemodynamically stable, nontoxic-appearing, at his baseline mental status. Differential diagnosis includes but is not limited to ACS, arrhythmia, heat exhaustion, dehydration. Based on these concerns, I ordered CBC, CMP, troponin, EKG, chest x-ray. ECG personally interpreted as noted above. Patient received 500 cc of lactated Ringer for treatment. Labs personally reviewed demonstrate unremarkable CBC, normal glucose, no significant electrolyte abnormalities,. XR personally interpreted demonstrates no acute cardiopulmonary pathology. On reassessment was in stable condition with improvement in symptoms. Patient is to follow-up with PCP. Most likely etiology of his symptoms is heat exhaustion. Patient ultimately discharged in stable condition Critical Care Critical Care Time Critical Care Time: No
[2024-07-25 10:15] VITALS: BP 139/70; PULSE 54; RESP 14; O2SAT 96
[2024-07-25 10:16] LABS: Basophils % 0.7 % (0.1-2.0); Eosinophils # 0.3 K/mm3 (0.0-0.4); Eosinophils % 5.1 % (0.1-12.0); Hematocrit 46.9 % (42.0-52.0); Lymphocytes # 3.1 K/mm3 (0.7-4.5); Lymphocytes % 46.8 % (10-50); Mean Corpuscular HGB Conc 31.9 g/dL (31.8-35.4); Mean Corpuscular Hemoglobin 32.2 pg (27.0-31.2); Monocytes # 0.5 K/mm3 (0.1-1.0); Monocytes % 7.3 % (1.7-9.3); Neutrophils # 2.7 K/mm3 (1.8-7.8); Neutrophils % 40.2 % (37.0-80.0); Platelet Count 155 K/mm3 (142-424); Red Blood Count 4.64 M/mm3 (4.60-6.20); Red Cell Distribution Width 14.5 % (11.5-17.5); White Blood Count 6.7 K/mm3 (4.8-10.8)
[2024-07-25] MEDS: RINGERS SOLUTION,LACTATED 500 ML 999 ML IV (10:29)
[2024-07-25 10:31] VITALS: BP 106/60; PULSE 50; RESP 16; O2SAT 98
--- NOTE | 2024-07-25 10:34 | PC.NURSE ---
redrawn blood sent at this time
--- NOTE | 2024-07-25 10:51 | PC.NURSE ---
XR AT BEDSIDE
[2024-07-25 10:56] LABS: Chloride 113 mmol/L (98-107)
[2024-07-25 10:57] LABS: Albumin Level 3.4 g/dl (3.5-5.0); Potassium 3.8 mmoL/L (3.5-5.1); Sodium 139 mmol/L (136-145)
[2024-07-25 10:59] LABS: Blood Urea Nitrogen 15 mg/dl (9-20); Creatinine Clearance Estimated 61 mL/min (50-200); Estimated Glomerular Filt Rate 59 ml/min (>60); GFR (African American) 72 ML/MIN (>60)
[2024-07-25 11:00] VITALS: BP 124/65; PULSE 51; RESP 21; O2SAT 95
[2024-07-25 11:00] LABS: Alanine Aminotransferase 21 U/L (12-78); Albumin/Globulin Ratio 1.2 (1.1-1.8); Alkaline Phosphatase 80 U/L (38-126); Anion Gap 4.8 mEq/L (5-15); Aspartate Amino Transferase 25 U/L (17-59); Bilirubin,Total 0.7 mg/dl (0.2-1.3); Calcium 8.2 mg/dl (8.4-10.2); Carbon Dioxide 25 mmol/L (22.0-30.0); Globulin 2.8 g/dL (1.3-3.2); Glucose 99 mg/dl (74-100); Total Protein,Serum 6.2 g/dl (6.3-8.2)
[2024-07-25 11:13] LABS: Troponin I < 0.01 ng/ml (0.00-0.034)
[2024-07-25 11:30] VITALS: BP 128/74; PULSE 53; RESP 20; O2SAT 99
[2024-07-25 13:09] VITALS: BP 151/80; PULSE 52; RESP 19; TEMP 36.6; O2SAT 95
== END 2024-07-25 13:10 | disposition home or self-care (01) ==
PROVIDERS: Emergency Provider Student in an Organized Health Care Education/Training Program; PCP Internal Medicine Adolescent Medicine
DX: R55 Syncope and collapse (principal); T67.5XXA Heat exhaustion, unspecified, initial encounter; I25.10 Atherosclerotic heart disease of native coronary artery without angina pectoris; Z95.810 Presence of automatic (implantable) cardiac defibrillator; R07.9 Chest pain, unspecified; R00.1 Bradycardia, unspecified
CPT/HCPCS: 71045; 80053; 84484; 85025; 93005; 99285; J7120

== ENCOUNTER 2024-08-10 13:10 | Outpatient (CLI) | payer MEDICARE, OTHER, SELFPAY ==
[2024-08-10 13:26] LABS: PHA INR Fingerstick 1.7 (0.9-1.1)
== END 2024-08-10 13:28 ==
LOC: ACC 13:11
PROVIDERS: PCP Internal Medicine Adolescent Medicine; Visit Provider Internal Medicine Adolescent Medicine
DX: Z79.01 Long term (current) use of anticoagulants (principal); Z51.81 Encounter for therapeutic drug level monitoring
CPT/HCPCS: 85610; 99211; G0463

== ENCOUNTER 2024-09-07 13:00 | Outpatient (CLI) | payer MEDICARE, OTHER, SELFPAY ==
[2024-09-07 13:17] LABS: PHA INR Fingerstick 1.9 (0.9-1.1)
== END 2024-09-07 13:20 ==
LOC: ACC 13:01
PROVIDERS: PCP Internal Medicine Adolescent Medicine; Visit Provider Internal Medicine Adolescent Medicine
DX: Z79.01 Long term (current) use of anticoagulants (principal)
CPT/HCPCS: 85610; 99211; G0463

== ENCOUNTER 2024-10-05 14:39 | Outpatient (CLI) | payer MEDICARE, OTHER, SELFPAY ==
[2024-10-05 15:24] LABS: PHA INR Fingerstick 2.2 (0.9-1.1)
== END 2024-10-05 15:26 ==
LOC: ACC 14:40
PROVIDERS: PCP Internal Medicine Adolescent Medicine; Visit Provider Internal Medicine Adolescent Medicine
DX: Z79.01 Long term (current) use of anticoagulants (principal); I48.91 Unspecified atrial fibrillation
CPT/HCPCS: 85610; 99211; G0463

== ENCOUNTER 2024-11-16 13:27 | Outpatient (CLI) | payer MEDICARE, OTHER, SELFPAY ==
[2024-11-16 15:11] LABS: PHA INR Fingerstick 2.4 (0.9-1.1)
== END 2024-11-16 15:15 ==
LOC: ACC 13:29
PROVIDERS: PCP Internal Medicine Adolescent Medicine; Visit Provider Internal Medicine Adolescent Medicine
DX: Z79.01 Long term (current) use of anticoagulants (principal); I48.91 Unspecified atrial fibrillation
CPT/HCPCS: 85610; 99211; G0463

== ENCOUNTER 2024-12-28 13:30 | Outpatient (CLI) | payer MEDICARE, OTHER, SELFPAY ==
[2024-12-28 14:11] LABS: PHA INR Fingerstick 3.9 (0.9-1.1)
== END 2024-12-28 14:12 ==
LOC: ACC 13:32
PROVIDERS: PCP Internal Medicine Adolescent Medicine; Visit Provider Internal Medicine Adolescent Medicine
DX: Z79.01 Long term (current) use of anticoagulants (principal); I48.91 Unspecified atrial fibrillation
CPT/HCPCS: 85610; 99211; G0463

== ENCOUNTER 2025-01-25 13:36 | Outpatient (CLI) | payer MEDICARE, OTHER, SELFPAY ==
[2025-01-25 14:11] LABS: PHA INR Fingerstick 2.5 (0.9-1.1)
== END 2025-01-25 14:13 ==
LOC: ACC 13:37
PROVIDERS: PCP Internal Medicine Adolescent Medicine; Visit Provider Internal Medicine Adolescent Medicine
DX: Z79.01 Long term (current) use of anticoagulants (principal)
CPT/HCPCS: 85610; 99211; G0463

== ENCOUNTER 2025-03-08 14:27 | Outpatient (CLI) | payer MEDICARE, OTHER, SELFPAY ==
--- OUTSIDE RECORDS SUMMARY | 2025-03-08 14:29 | XMS_ITS | Continuity of Care Document ---
Author Name [facility] Organization [facility] Care Team Providers Care Corsetier Name Role Phone [facility] Unavailable Unavailable Medications Combined list of outpatient medications from Department of Defense and Veterans Affairs facilities.Medications provided include 1) outpatient medications from the last 15 months, and 2) patient-reported medications. Medication Details Route Status Patient Instructions Prescription Expires Prescription Number Last Dispense Date Ordering Provider Order Date Order Qty Source LOSARTAN POTASSIUM (LOSARTAN POTASSIUM), 50 MG, TABLET, ORAL, [employer], 1000 ea. BOTTLE Active [id number] 4 2023 45 Pharmac y Data Transac tion Service Facilit y METOPROLOL SUCCINATE (metoprolol succinate), 25 MG, TAB ER 24H, ORAL, ACTAVIS/TEV A, 100 ea. BOTTLE Active [id number] 4 2023 45 Pharmac y Data Transac tion Service Facilit y MIRTAZAPINE (mirtazapin e), 15 MG, TABLET, ORAL, [employer] 1000 ea. BOTTLE Cancele d [id number] : 2023 0 Pharmac y Data Transac tion Service Facilit y MIRTAZAPINE (mirtazapin e), 15 MG, TABLET, ORAL, [employer] 1000 ea. BOTTLE Active [id number] 4 2023 90 Pharmac y Data Transac tion Service Facilit y NAMZARIC (MEMANTINE HCL/DONEPEZ IL HCL), 28 MG-10MG, CAP SPR 24, ORAL, SILVER SPRING PHARMACE, 30 ea. BOTTLE Active [id number] 4 2023 90 Pharmac y Data Transac tion Service Facilit y WARFARIN SODIUM (WARFARIN SODIUM), 5MG, TABLET, ORAL, TARO PHARM [facility], 1000 ea. BOTTLE Active [id number] 4 2023 30 Pharmac y Data Transac tion Service Facilit y WARFARIN SODIUM (WARFARIN SODIUM), 5MG, TABLET, ORAL, TARO PHARM [employer], 1000 ea. BOTTLE Active [id number] 4 2023 30 Pharmac y Data Transac tion Service Facilit y WARFARIN SODIUM (WARFARIN SODIUM), 5MG, TABLET, ORAL, TARO [employer]ARM [place], 1000 ea. BOTTLE Active [id number] 4 2023 30 Pharmac y Data Transac tion Service Facilit y Social History Combined list of available smoking, tobacco, and other social history from Department of Defense and Veterans Affairs facilities. Social History Type Response Date Comment Sour e This section is an empty social history section. [facility]
[2025-03-08 15:12] LABS: PHA INR Fingerstick 3.2 (0.9-1.1)
== END 2025-03-08 15:38 ==
LOC: ACC 14:27
PROVIDERS: PCP Internal Medicine Adolescent Medicine; Visit Provider Internal Medicine Adolescent Medicine
DX: Z79.01 Long term (current) use of anticoagulants (principal)
CPT/HCPCS: 85610; 99211; G0463

== ENCOUNTER → 2025-03-31 15:00 | Outpatient (CLI) | payer MEDICARE, OTHER, SELFPAY ==
--- OUTSIDE RECORDS SUMMARY | 2025-04-01 07:40 | XMS_ITS | Continuity of Care Document ---
Author Name [facility] Organization [facility] Care Team Providers Care Byproducts Operator Name Role Phone [facility] Unavailable Unavailable Medications Combined list of outpatient medications from Department of Defense and Veterans Affairs facilities.Medications provided include 1) outpatient medications from the last 15 months, and 2) patient-reported medications. Medication Details Route Status Patient Instructions Prescription Expires Prescription Number Last Dispense Date Ordering Provider Order Date Order Qty Source METOPROLOL SUCCINATE (metoprolol succinate), 25 MG, TAB ER 24H, ORAL, ACTAVIS/TEV A, 100 ea. BOTTLE Active [id number] 4 2023 45 Pharmac y Data Transac tion Service Facilit y MIRTAZAPINE (mirtazapin e), 15 MG, TABLET, ORAL, [employer]., 1000 ea. BOTTLE Cancele d [id number] : 2023 0 Pharmac y Data Transac tion Service Facilit y MIRTAZAPINE (mirtazapin e), 15 MG, TABLET, ORAL, [employer]., 1000 ea. BOTTLE Active [id number] 4 2023 90 Pharmac y Data Transac tion Service Facilit y NAMZARIC (MEMANTINE HCL/DONEPEZ IL HCL), 28 MG-10MG, CAP SPR 24, ORAL, KATY PHARMACE, 30 ea. BOTTLE Active [id number] 4 2023 90 Pharmac y Data Transac tion Service Facilit y WARFARIN SODIUM (WARFARIN SODIUM), 5MG, TABLET, ORAL, TARO PHARM [employer], 1000 ea. BOTTLE Active [id number] 4 2023 30 Pharmac y Data Transac tion Service Facilit y WARFARIN SODIUM (WARFARIN SODIUM), 5MG, TABLET, ORAL, TARO [employer]ARM [employer], 1000 ea. BOTTLE Active [id number] 4 2023 30 Pharmac y Data Transac tion Service Facilit y WARFARIN SODIUM (WARFARIN SODIUM), 5MG, TABLET, ORAL, TARO PHARM [employer], 1000 ea. BOTTLE Active [id number] 4 2023 30 Pharmac y Data Transac tion Service Facilit y Social History Combined list of available smoking, tobacco, and other social history from Department of Defense and Veterans Affairs facilities. Social History Type Response Date Comment Sour e This section is an empty social history section. DoD
[2025-04-01 13:02] LABS: PHA INR Fingerstick 2.1 (0.9-1.1)
== END ==
LOC: ACC 04-01 07:40
PROVIDERS: PCP Internal Medicine Adolescent Medicine; Visit Provider Internal Medicine Adolescent Medicine
DX: Z79.01 Long term (current) use of anticoagulants (principal)
CPT/HCPCS: 85610; 99211; G0463

== ENCOUNTER 2025-05-12 14:30 | Outpatient (CLI) | payer MEDICARE, OTHER, SELFPAY ==
--- OUTSIDE RECORDS SUMMARY | 2025-03-26 07:59 | XMS_ITS | Encounter Summary ---
Author Organization Healthcare Address [address] [place] [address] Care Team Providers Care Operation Manager Name Role Phone Gilbert Gutierrez MD Primary Care Provider [phone] Encounter Details Date Type Department Care Team (Latest Contact Info) Description 03/26/2025 7:59 AM EDT - 03/26/2025 11:59 PM EDT Hospital Encounter Cardiac Imaging [address] [place] [address] ICD (implantable cardioverter-defibr illator) in place Discharge Disposition: Home or Self Care Social History Tobacco Use Types Packs/Day Years Used Date Smoking Tobacco: Former Passive Smoke Exposure: Past Smokeless Tobacco: Never Alcohol Use Standard Drinks/Week Comments No 0 (1 standard drink = 0.6 oz pur e alcohol) PHQ-2 Answer Date Recorded Patient Health Questionnaire-2 Score 0 02/11/2025 PHQ-9 Answer Date Recorded Patient Health Questionnaire-9 Score 0 02/11/2025 PHQ-2A Answer Date Recorded Patient Health Questionnaire-2 Score 0 10/10/2023 Sex and Gender Information Value Date Recorded Sex Assigned at Not on file Legal Sex Male 7:42 PM EDT Gender Identity Not on file Sexual Orientation Not on file documented as of this encounter Medications at Time of Discharge aspirin 81 MG EC tablet Take 1 tablet (81 mg) by mouth 1 (one) time each day. atorvastatin (Lipitor) 80 MG tablet Take 1 tablet by mouth daily. 01/07/2025 guaiFENesin (Mucinex) 600 MG 12 hr tablet 1 tablet (600 mg) if needed. 01/06/2018 losartan (Cozaar) 50 MG tabletIndications:Co ronary artery disease involving alat[place] coronary artery of [place] heart without angina pectoris,Ischemic cardiomyopathy TAKE 1/2 TABLET(25 MG) BY MOUTH ONCE DAILY 45 tablet 3 12/18/2023 metoprolol succinate XL (Toprol-XL) 25 MG 24 hr tabletIndications:Co ronary artery disease involving alatna coronary artery of al[place] heart without angina pectoris,Ischemic cardiomyopathy Take 0.5 tablets (12.5 mg) by mouth 1 (one) time each day. Do not crush or chew. 45 tablet 3 04/23/2024 mirtazapine (Remeron) 15 MG tablet Take 1 tablet (15 mg) by mouth 1 (one) time each day. 05/20/2021 Namzaric 28-10 MG capsule sustained-release 24 hr Take by mouth 1 (one) time each day. 04/04/2021 nitroglycerin (Nitrostat) 0.4 MG SL tablet TAKE DIRECTED. 01/09/2021 warfarin (Coumadin) 5 MG tabletIndications:Is chemic cardiomyopathy,Chron ic systolic heart failure (CMS/HCC) Take 1 tablet (5 mg) by mouth 1 (one) time each day. Take as directed per After Visit Summary. 1/2 tablet MWF 30 tablet 11 02/04/2024 documented as of this encounter Plan of Treatment Upcoming Encounters Date Type Department Care Team (Late st Contact Info) Description 06/03/2025 2:40 PM EDT Office Visit [facility] [place] [address] [phone] Wilman Amor MD [address] [place] [address] 08/12/2025 12:40 PM EDT Office [facility] [address] [phone] Emily Castaneda MD [address] [place] [phone] documented as of this encounter Procedures Procedure Name Priority Date/Time Associated Diagnosis Comments CARDIAC DEVICE CHECK - REMOTE - ICD Routine 03/26/2025 12:36 PM EDT ICD (implantable cardioverter-defibr illator) in place documented in this encounter Results * CARDIAC DEVICE CHECK - REMOTE - ICD (03/26/2025 12:36 PM EDT) Anatomical Region Laterality Modality Other Narrative 03/26/2025 1:35 PM EDT [facility] - Device Clinic Remote CIED Report Name: Navid Urbina Date: 03/26/2025 : 1950 Age: 75 y.o. Reporting period: Reporting period is the last 91 days, with at least 30 days of remote monitoring. Interim reports, if any, reviewed and addressed previously; see remote alert entries for more details. Most recent report, dated 03/26/2025, analysis and summary as follows: Device: Morgan single chamber ICD Permanent Programming Mode: VVI LRL: 40 bpm Tachy Zones : VT-1 150 bpm VT 181 bpm VF > 240 bpm Available measurements within normal limits. See attached report. Pacing Percentage: Ventriclar: <1 % Battery: Service time remainin.5 years Presenting rhythm: Regular ventricular rhythm, likely sinus rhythm. Evaluation: Demonstrates appropriate sensing: Yes Demonstrates pacing capture: Yes Arrhythmias: No new arrhythmia of significance since last CIED evaluation. Summary: CIED functioning as expected, with given programming and data. See copy of vendor report in Media Mabel Martinez oTo DUNN CV IMPLANTABLE CARDIAC DEV ICE PROCEDURES Final Result documented in this encounter Visit Diagnoses Diagnosis ICD (implantable cardioverter-defibrillator) in place documented in this encounter Additional Health Concerns Assessment Noted Time PHQ-9 Depression Total Score: 0 02/12/20 25 11:34 AM EDT A fall risk assessment has been complete d for the patient 02/11/2025 11:39 AM EDT A Body Mass Index follow-up plan has been documented for the patient 02/11/2025 12:15 PM EDT documented as of this encounter Care Teams Operation Manager Relationship Specialty Start Date End Date Gilbert Gutierrez MD [address] [place] [address] PCP - General 03/17/21 documented as of this encounter
--- OUTSIDE RECORDS SUMMARY | 2025-05-12 14:32 | XMS_ITS | Clinical Summary ---
Author Organization [facility] Address [address] [place] [address] Phone Care Team Providers Care Shoe Dresser Name Role Phone Pepito Naik MD Unavailable [ ] Conditions or Problems No information available. Medications No information available. Medications Administered No information available. Allergies, Adverse Reactions, Alerts No information available. Results No information available. Plan of Care No information available. Procedures No information available. Vital Signs No information available. Immunizations No information available. Advance Directives No information available.
--- OUTSIDE RECORDS SUMMARY | 2025-05-12 14:32 | XMS_ITS | Continuity of Care Document ---
Author Name [facility] Organization [facility] Care Team Providers Care Exhibition Organiser Name Role Phone [facility] Unavailable Unavailable Medications Combined list of outpatient [...] ORAL, ACTAVIS/TEV A, 100 ea. BOTTLE Active [id number] 4 2023 45 Pharmac y Data Transac tion Service Facilit y MIRTAZAPINE (mirtazapin e), 15 MG, TABLET, ORAL, [employer] 1000 ea. BOTTLE Cancele d [id number] : 2023 0 Pharmac y Data Transac tion Service Facilit y MIRTAZAPINE (mirtazapin e), 15 MG, TABLET, ORAL, [employer] 1000 ea. BOTTLE Active [id number] 4 2023 90 Pharmac y Data Transac tion Service Facilit y NAMZARIC (MEMANTINE HCL/DONEPEZ IL HCL), 28 MG-10MG, CAP SPR 24, ORAL, ELLENDALE PHARMACE, 30 ea. BOTTLE Active [id number] 4 2023 90 Pharmac y Data Transac tion Service Facilit y Social History Combined list of available smoking, tobacco, and other social history from Department of Defense and Veterans Affairs facilities. Social History Type Response Date Comment Sourc e This section is an empty social history section. [facility]
--- OUTSIDE RECORDS SUMMARY | 2025-05-12 14:33 | XMS_ITS | Encounter Summary ---
Author Organization [facility] Address [address] [place] [address] Care Team Providers Care Ramp Manager Name Role Phone Gilbert Gutierrez MD Primary Care Provider [phone] Reason for Visit * Reason Comments Med Refill Encounter Details Date Type Department Care Team ([facility] st Contact Info) Description 04/20/2025 Refill [facility] [place] [address] [place] [address] Emily Castaneda MD [address] [place] [address] Ischemic cardiomyopathy; Chronic systolic heart failure (CMS/HCC) Social History Tobacco Use Types Packs/Day Years [...] on file documented as of this encounter Miscellaneous Notes * Telephone Encounter - Ginger Guevara RN - 04/20/2025 1:35 PM EDT Pt on warfarin for hx of LV thrombus. [facility] clinic does not manage patient. We do not have a PT/INRsince last June, and both were elevated at that time. I attempted to call the pt to let him know we wouldn't be able to refill this as we do not manage PT/INR, and we do not have any recent PT/INR. documented in this encounter Plan of Treatment Upcoming Encounters Date Type Department Care Team (Late st Contact Info) Description 06/03/2025 2:40 PM EDT Office Visit [facility] [place] [address] [place] [address] Wilman Amor MD [address] [place] [address] 08/12/2025 12:40 PM EDT Office Visit [facility] [address] [place] [phone] Emily Castaneda MD [address] [place] [phone] documented as of this encounter Visit Diagnoses Diagnosis Ischemic cardiomyopathy Other specified forms of chronic ischemic heart disease Chronic systolic heart failure (CMS/HCC) Chronic systolic heart failure documented in this encounter Additional Health Concerns Assessment Noted Time PHQ-9 Depression Total Score: 0 02/12/20 25 11:34 AM EDT A fall risk assessment has been complete d for the patient 02/11/2025 11:39 AM EDT A Body Mass Index follow-up plan has been documented for the patient 02/11/2025 12:15 PM EDT documented as of this encounter Care Teams Ramp Manager Relationship Specialty Start Date End Date Gilbert Gutierrez MD [address] [place] [address] PCP - General 03/17/21 documented as of this encounter
--- OUTSIDE RECORDS SUMMARY | 2025-05-12 14:33 | XMS_ITS | Clinical Summary ---
Author Organization Healthcare Address [address] [place] [address] Care Team Providers Care Brake Linings Coater Name Role Phone Gilbert Gutierrez MD Primary Care Provider [phone] Allergies No known active allergies Medications nitroglycerin (Nitrostat) 0.4 MG SL tablet TAKE DIRECTED. 01/10/20 21 Active mirtazapine (Remeron) 15 MG tablet Take 1 tablet (15 mg) by mouth 1 (one) time each day. 05/20/20 21 Active Namzaric 28-10 MG capsule sustained-release 24 hr Take by mouth 1 (one) time each day. 04/04/20 21 Active guaiFENesin (Mucinex) 600 MG 12 hr tablet 1 tablet (600 mg) if needed. 01/07/20 18 Active aspirin 81 MG EC tablet Take 1 tablet (81 mg) by mouth 1 (one) time each day. Active losartan (Cozaar) 50 MG tabletIndications: Coronary artery disease involving [place] coronary artery of [place] heart without angina pectoris,Ischemic cardiomyopathy TAKE 1/2 TABLET(25 MG) BY MOUTH ONCE DAILY 45 tablet 3 12/18/19 24 Active warfarin (Coumadin) 5 MG tabletIndications: Ischemic cardiomyopathy,Chr onic systolic heart failure (CMS/HCC) Take 1 tablet (5 mg) by mouth 1 (one) time each day. Take as directed per After Visit Summary. 1/2 tablet MWF 30 tablet 11 02/04/20 24 Active metoprolol succinate XL (Toprol-XL) 25 MG 24 hr tabletIndications: Coronary artery disease involving [place] coronary artery of [place] heart without angina pectoris,Ischemic cardiomyopathy Take 0.5 tablets (12.5 mg) by mouth 1 (one) time each day. Do not crush or chew. 45 tablet 3 04/23/20 24 Active Additional Information Patient not taking.Reported on 02/11/2025 atorvastatin (Lipitor) 80 MG tablet Take 1 tablet by mouth daily. 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 [address] Emily Castaneda MD Ischemic cardiomyopathy; Chronic systolic heart failure (CMS/HCC) 04/19/2025 [facility] [address] [address] Emily Castaneda MD Ischemic cardiomyopathy; Chronic systolic heart failure (CMS/HCC) 03/26/2025 7:59 AM EDT - 03/26/2025 11:59 PM EDT Hospital Encounter Cardiac Imaging [address] [place] [address] ICD (implantable cardioverter-defibrill ator) in place Discharge Disposition: Home or Self Care 03/26/2025 Travel 02/11/2025 11:40 AM EDT Office Visit [facility] [place] [address] [address] Emily Castaneda MD ICD (implantable cardioverter-defibrill ator), single, in situ (Primary Dx); Ischemic cardiomyopathy 02/11/2025 Travel from Last 3 Months Immunizations Immunization Administration Dates Next Due Hep A, Adult 06/11/2019,10/20/2018 Influenza, High-dose, Split Virus, Trivalent, Injectable, preservative free 08/10/2024,08/13/2022,07/24/2021,07/20,07/31/2019,08/22/2018 Influenza, high-dose, quadrivalent 08/09/2023 Pneumococcal 20-archie Conj Vaccine 02/11/2023 Pneumococcal Conjugate PCV 13 10/11/2017 Pneumococcal Polysaccharide PPV23 12/06/2015 Rsvpref, Recombinant, Protei n Subunit, Adjuvent 09/30/2023 Tdap 12/07/2023 Zoster, Recombinant 09/16/2024,09/30/2023 Family History Medical History Relation Name Comments Coronary artery disease Brother Stroke Father Coronary artery disease Mother Stroke Sister Relation Name Status Comments Brother Father Mother Sister Social History Tobacco Use Types Packs/Day Years Used Date Smoking Tobacco: Former Passive Smoke Exposure: Past Smokeless Tobacco: Never Tobacco Cessation:Counseling Given: Not Answered Alcohol Use Standard Drinks/Week Comments No 0 [...] on file Sexual Orientation Not on file Last Filed Vital Signs Vital Sign Reading Time Taken Comments Blood Pressure 87/63 02/11/2025 11:43 AM EDT Pulse 96 02/11/2025 11:36 AM EDT Temperature 36.8 C (98.2 F) 07/31/2021 10:18 AM EDT Respiratory Rate 16 12/03/2024 10:20 AM EST Oxygen Saturation 92% 02/11/2025 11:36 AM EDT Inhaled Oxygen Concentration - - Weight 96.4 kg (212 lb 8.4 oz) 02/11/2025 11:36 AM EDT Height 172.7 cm (5' 8 ) 02/11/2025 11:36 AM EDT Body Mass Index 32.31 02/11/2025 11:36 AM EDT Plan of Treatment Upcoming Encounters Date Type Department Care Team (Late st Contact Info) Description 06/03/2025 2:40 PM EDT Office Visit [facility] [address] [place] [address] Wilman Amor MD [address] [place] [address] 08/12/2025 12:40 PM EDT Office Visit [facility] [address] [place] [address] Emily Castaneda MD [address] [place] [address] Health Maintenance Due Date Last Done Comments [facility]-Hepatitis C Screening 1950 [facility]-Medicare Annual Wellness (AWV) 1950 [facility]-Infant/Child/Adol SDOH Screenings 1950 [facility]- SDOH Screenings 1968 [facility]-Adult SDOH Screenings 1968 CT Colonography 1995 Colonoscopy 1995 FIT 1995 FOBT 1995 Sigmoidoscopy 1995 [facility]-Abdominal Aortic Aneurysm (AAA) Screening 2015 [id number] Vaccine ( season) 2024 03/01/2023, 06/20/2022, 09/13/2021, Additional history exists [facility]-Influenza Vaccine (#1) 07/05/202508/10, 08/09/2023, 08/13/2022, Additional history exists FIT-DNA 09/04/2025 09/04/2022 [facility]-Colorectal Cancer Screening 09/04/2025 [facility]-Depression Screening 02/11/2026 02/11/2025, 02/02 [facility]-DTaP,Tdap,and Td Vaccines (2 - Td or Tdap) 12/07/2033 12/07/2023 [facility]-Hepatitis A Vaccines Aged Out 06/11/2019, 10/04 No longer eligible based on patient's age to complete this topic [facility]-Pneumococcal Vaccine: 50+ Years Completed 02/11/2023, 10/11/2017, 12/06/2015 [facility]-RSV Vaccine: 60+ Years or Completed 09/30/2023 [facility]-Zoster Vaccines Completed 09/16/2024, [facility]-Obesity Intervention Completed 025, 12/03/2024, 06/03/2024, Additional history exists HPV Vaccines Aged Out No longer eligi ble based on patient's age to complete this topic [facility]-HIB Vaccines Aged Out No longer e ligible based on patient's age to complete this topic [facility]-IPV Vaccines Aged Out No longer e ligible based on patient's age to complete this topic [facility]-Rotavirus Vaccines Aged Out No lo nger eligible based on patient's age to complete this topic Medical Devices Implanted Type Area Modular Home Crew Member Device Identifier Shelf Expiration Date Model / Serial / Lot 7122q Durata Sj4 [id number] Lead [id number] DURAT A SJ4 / [id number] / 1411-36q Ellipse Vr [id number] Implanted:03/14 (Quantity not on file) Pacemaker 1411-36Q ELLIPSE VR / [id number] / Procedures Procedure Name Priority Date/Time Associated Diagnosis Comments CARDIAC DEVICE CHECK - REMOTE - ICD Routine 03/26/2025 12:36 PM EDT ICD (implantable cardioverter-defibr illator) in place from Last 3 Months Results * CARDIAC DEVICE CHECK - REMOTE - ICD (03/26/2025 12:36 PM EDT) Anatomical Region Laterality Modality Other Narrative 03/26/2025 1:35 PM EDT [facility] EP - Device Clinic Remote CIED [...] See copy of vendor report in Media us Mabel Martinez Rubénbrucejody DUNN CV IMPLANTABLE CARDIAC DEV ICE PROCEDURES Final Result from Last 3 Months Insurance MEDICARE [facility] Care Teams Brake Linings Coater Relationship Specialty Start Date End Date Gilbert Gutierrez MD [address] [place] [address] PCP - General 03/17/21
--- OUTSIDE RECORDS SUMMARY | 2025-05-12 14:33 | XMS_ITS | Encounter Summary ---
Author Organization Healthcare Address [address] [place] [address] Care Team Providers Care Pharmacy Benefit Manager Name Role Phone Gilbert Gutierrez MD Primary Care Provider [phone] Reason for Visit * Reason Comments Med Refill Encounter Details Date Type Department Care Team (Late Contact Info) Description 12/18/2023 Refill [facility] [place] [address], [address] [place] [phone] Eva Cotto PA [address] [place] [address] Social History Tobacco Use Types Packs/Day Years Used Date Smoking Tobacco: Former Passive Smoke Exposure: Past Smokeless Tobacco: Never Alcohol Use Standard Drinks/Week Comments No 0 (1 standard drink = 0.6 oz pur e alcohol) PHQ-2 Answer Date Recorded Patient Health Questionnaire-2 Score 0 10/10/2023 PHQ-2A Answer Date Recorded Patient Health Questionnaire-2 Score 0 10/10/2023 Sex and Gender Information Value Date Recorded Sex Assigned at Not on file Legal Sex Male 7:42 PM EDT Gender Identity Not on file Sexual Orientation Not on file documented as of this encounter Plan of Treatment Upcoming Encounters Date Type Department Care Team (Late Contact Info) Description 06/03/2025 2:40 PM EDT Office Visit [facility] [place] Nishant [address] [facility] [place] [phone] Wilman Amor MD [address] [place] [address] 08/12/2025 12:40 PM EDT Office Visit [facility] [place]ishant [address] [place] [address] Emily Castaneda MD [address] [place] [phone] documented as of this encounter Visit Diagnoses Not on filedocumented in this encounter Additional Health Concerns Assessment Noted Time A fall risk assessment has been complete d for the patient 10/10/2023 10:33 AM EST A Body Mass Index follow-up plan has been documented for the patient 10/10/2023 11:18 AM EST documented as of this encounter Care Teams Pharmacy Benefit Manager Relationship Specialty Start Date End Date Gilbert Gutierrez MD [address] [place] [address] PCP - General 03/17/21 documented as of this encounter
--- OUTSIDE RECORDS SUMMARY | 2025-05-12 14:33 | XMS_ITS | Encounter Summary ---
Author Organization Healthcare Address [address] [place] [address] Care Team Providers Care Housekeeping Room Attendant Name Role Phone Gilbert Gutierrez MD Primary Care Provider [phone] Encounter Details Date Type Department Care Team (Latest Contact Info) Description 03/26/2025 Travel Social History Tobacco Use Types Packs/Day Years [...] Description 06/03/2025 2:40 PM EDT Office Visit [facility] [place] [address] [phone] Wilman Amor MD [address] [place] [address] 08/12/2025 12:40 PM EDT Office Visit [facility] [address] [phone] Emily Castaneda MD [address] [place] [address] documented as of this encounter Visit Diagnoses [...] documented as of this encounter Care Teams Housekeeping Room Attendant Relationship Specialty Start Date End Date Gilbert Gutierrez MD [address] [place] [address] PCP - General 03/17/21 documented as of this encounter
--- OUTSIDE RECORDS SUMMARY | 2025-05-12 14:33 | XMS_ITS | Encounter Summary ---
Author Organization Healthcare Address [address] [place] [address] Care Team Providers Care Micromatic Hone Operator Name Role Phone Gilbert Gutierrez MD Primary Care Provider [phone] Reason for Visit * Reason Onset Date Comments Med Refill 04/19/2025 Encounter Details Date Type Department Care Team (Late st Contact Info) Description 04/19/2025 Refill [facility] [place] [address] [facility]. [address] [place] [address] Emily Castaneda MD [address] [place] [address] Ischemic cardiomyopathy; Chronic systolic heart failure (CMS/HCC) [...] encounter Miscellaneous Notes * Telephone Encounter - Judy Patel CPhT - 04/19/2025 4:30 PM EDT He is not our patient documented in this encounter Plan of Treatment Upcoming Encounters Date Type Department Care Team (Late st Contact Info) Description 06/03/2025 2:40 PM EDT Office Visit [facility] [place] [address] [place] [phone] Wilman Amor MD [address] [place] [address] 08/12/2025 12:40 PM EDT Office Visit [facility] [address] [place] [address] Emily Castaneda MD [address] [place] [address] documented as of this encounter Visit Diagnoses [...] documented as of this encounter Care Teams Micromatic Hone Operator Relationship Specialty Start Date End Date Gilbert Gutierrez MD [address] [place] [address] PCP - General 03/17/21 documented as of this encounter
[2025-05-12 15:01] LABS: PHA INR Fingerstick 3.0 (0.9-1.1)
== END 2025-05-12 15:02 ==
LOC: ACC 14:31
PROVIDERS: PCP Internal Medicine Adolescent Medicine; Visit Provider Internal Medicine Adolescent Medicine
DX: Z79.01 Long term (current) use of anticoagulants (principal)
CPT/HCPCS: 85610; 99211; G0463

== ENCOUNTER 2025-06-23 14:19 | Outpatient (CLI) | payer MEDICARE, OTHER, SELFPAY ==
--- OUTSIDE RECORDS SUMMARY | 2025-06-03 14:40 | XMS_ITS | Encounter Summary ---
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. 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 (Primary Dx); Ischemic cardiomyopathy; Essential hypertension Social History Tobacco Use Types Packs/Day Years Used Date Smoking Tobacco: Former Passive Smoke Exposure: Past Smokeless Tobacco: Never Alcohol Use Standard Drinks/Week Comments No 0 (1 standard drink = 0.6 oz pur e alcohol) PHQ-2 Answer Date Recorded Patient Health Questionnaire-2 Score 0 06/03/2025 PHQ-9 Answer Date Recorded Patient Health Questionnaire-9 Score 0 06/03/2025 PHQ-2A Answer Date Recorded Patient Health Questionnaire-2 Score 0 10/10/2023 Sex and Gender Information Value Date Recorded Sex Assigned at Not on file Legal Sex Male 7:42 PM EDT Gender Identity Not on file Sexual Orientation Not on file documented as of this encounter Last Filed Vital Signs Vital Sign Reading Time Taken Comments Blood Pressure 121/79 06/03/2025 2:32 PM EDT Pulse 70 06/03/2025 2:32 PM EDT Temperature - - Respiratory Rate 16 06/03/2025 2:32 PM EDT Oxygen Saturation 92% 06/03/2025 2:32 PM EDT Inhaled Oxygen Concentration - - Weight 92.1 kg (203 lb 0.7 oz) 06/03/2025 2:32 P M EDT Height 180.3 cm (5' 11 ) 06/03/2025 2:32 PM EDT Body Mass Index 28.32 06/03/2025 2:32 PM EDT documented in this encounter Functional Status * Over the past 2 weeks, how often have you been bothered by any of the following problems? Question Answer Date of Assessment Author Little interest or pleasure in doing things Not at all 06/03/2025 2:31 PM EDT Mike Lechuga Feeling down, depressed, or hopeless Not at all 06/03/2025 2:31 PM EDT Mike Lechuga Patient Health Questionnaire-2 Score 0 06/03/2025 2:31 PM EDT Hilary Lechuga * Question Answer Date of Assessment Author Trouble falling or staying asleep, or sleeping too much Not at all 06/03/2025 2:31 PM EDT Jesi Mullins ams Feeling tired or having little energy Not at all 06/03/2025 2:31 PM EDT Mike Lechuga Poor appetite or overeating Not at all 06/03/2025 2: 31 PM EDT Jesi Lechuga Feeling bad about yourself - or that you are a failure or have let yourself or your family down Not at all 06/03/2025 2:31 PM EDT Mike Lechuga Trouble concentrating on things, such as reading the newspaper or watching television Not at all 06/03/2025 2:31 PM DAWNAT Mike Lechuga Moving or speaking so slowly that other people could have noticed? Or the opposite - being so fidgety or restless that you have been moving around a lot more than usual. Not at all 06/03/2025 2:31 PM EDT Jesi Maharaj Thoughts that you would be better off or hurting yourself in some way Not at all 06/03/2025 2:31 PM EDT Michaelle Lechuga Patient Health Questionnaire-9 Score 0 06/03/2025 2:31 PM EDT Hilary Lechuga * If you checked off any problems on this questionnaire so far, Question Answer Date of Assessment Author How difficult have these problems made it for you to do your work, take care of things at home, or get along with other people? Not difficult at all 06/03/2025 2:31 PM DAWNAT Michaelle Lechuga documented as of this encounter Miscellaneous Notes * Progress Notes - tSella Gomes, SHAUN - 06/03/2025 2:40 PM EDT [facility] Navid Urbina is a 75 y.o. male who presents to [facility] for follow up. 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 Apical wall is akinetic, no evidence of shunting. No recent lab results available TODAY: Mr. Urbina is doing well at home. His is assiting him with HPI as he is limited due to TBI. Denies abnormal bleeding with OAC. Home bp improved now that his stopped metoprolol as he was falling freq due to low bp. He continue with losartan. PCP stopped his atoravastatin as discussed at last visit, but unknown reason. He is exercising via walking at [employer]. Patient denies chest pain with exertion, palpitations, lightheadedness, syncope, orthopnea, fatigue, edema or dyspnea. Review of symptoms 14 Point ROS reviewed and is otherwise negative except as per HPI. Past Medical History Past Medical History[1] Surgical History Surgical History[2] Family History family history includes Coronary artery disease in his brother and mother; Stroke in his father andsister. Social History reports that he has quit smoking. He has been exposed to tobacco smoke. He has never used smokelesstobacco. He reports that he does not drink alcohol and does not use drugs. Medications Current Medications[3] Physical Exam Constitutional: Appearance: Normal appearance. Cardiovascular: Rate and Rhythm: Normal rate and regular rhythm. Heart sounds: Normal heart sounds. Pulmonary: Effort: Pulmonary effort is normal. Breath sounds: Normal breath sounds. Skin: General: Skin is warm and dry. Neurological: General: No focal deficit present. Mental Status: alert and oriented to person, place, and time. Psychiatric: Mood and Affect: Mood normal. Behavior: Behavior normal. Blood pressure 121/79, pulse 70, resp. rate 16, height 1.803 m (5' 11 ), weight 92.1 kg (203 lb 0.7oz), SpO2 92%. Imaging No echocardiogram results found for the past 12 months Labs Lab Results Component Value Date HGB 12.7 (L) 03/15/2016 HCT 38.0 (L) 03/15/2016 PLT 186 03/15/2016 ALT 36 12/16/2015 AST 30 12/16/2015 NA 144 03/15/2016 K 4.1 03/15/2016 CREATININE 1.44 (H) 03/15/2016 BUN 17 03/15/2016 CO2 20 (L) 03/15/2016 TSH 4.74 (H) 12/12/2015 INR 12/16/2015 1.0 (NOTE) OPTIMAL INR RANGES FOR PATIENT ON ORAL ANTICOAGULANT THERAPY Prevention of venous thromboembolism INR 2.0 to 3.0 In patients with heart disease: Atrial fibrillation INR 2.0 to 3.0 Valvular heart disease INR 2.0 to 3.0 Tissue heart valves INR 2.0 to 3.0 Mechanical prosthetic valves INR 2.5 to 3.5 Prevention of recurrent CO INR 2.5 to 3.5 HGBA1C 6.1 (H) 11/22/2015 Assessment and Plan ICM with HFrEF LVEF 36% ECHO: 11-15-22: NYHA classification: II: No change in current medical therapy Restart statin in setting of V. Fib arrest in setting of STEMI. Atorvastatin 80 mg daily No recent Lipid panel results to review With LV thrombus: chronic: Continues with OAC S/p ICD Morgan single chamber: Denies problem HTN: stable: Continue with losartan 50 mg daily. F/u 6m or sooner if needed A total time of 30 minutes was spent by MD and DIANE addressing the current illness, reviewing records (prior imaging, lab work, etc), and formulating a plan. The patient is agreeable to the plan and all pertinent questions were answered. Stella Gomes APRN [1] Past Medical History: Diagnosis Date Acute kidney failure, unspecified (CMS/HCC) CHAYO (acute kidney injury) Altered mental status, unspecified Altered mental status Personal history of other diseases of the digestive system History of constipation Personal history of other diseases of urinary system History of ATN Personal history of other endocrine, nutritional and metabolic disease History of diabetes mellitus Personal history of other infectious and parasitic diseases History of sepsis Personal history of other specified conditions History of dizziness Personal history of sudden cardiac arrest History of cardiac arrest Unspecified protein-calorie malnutrition (CMS/HCC) Malnutrition [2] No past surgical history on file. [3] Current Outpatient Medications Medication Sig Dispense Refill aspirin 81 MG EC tablet Take 1 tablet (81 mg) by mouth 1 (one) time each day. atorvastatin (Lipitor) 80 MG tablet Take 1 tablet by mouth daily. (Patient not taking: Reported on 02/11/2025) guaiFENesin (Mucinex) 600 MG 12 hr tablet 1 tablet (600 mg) if needed. losartan (Cozaar) 50 MG tablet TAKE 1/2 TABLET(25 MG) BY MOUTH ONCE DAILY 45 tablet 3 metoprolol succinate XL (Toprol-XL) 25 MG 24 hr tablet TAKE 1/2 TABLET(12.5 MG) BY MOUTH 1 TIME EACH DAY. DO NOT CRUSH OR CHEW 45 tablet 3 mirtazapine (Remeron) 15 MG tablet Take 1 tablet (15 mg) by mouth 1 (one) time each day. Namzaric 28-10 MG capsule sustained-release 24 hr Take by mouth 1 (one) time each day. nitroglycerin (Nitrostat) 0.4 MG SL tablet TAKE DIRECTED. warfarin (Coumadin) 5 MG tablet Take 1 tablet (5 mg) by mouth 1 (one) time each day. Take as directed per After Visit Summary. 1/2 tablet MWF 30 tablet 11 No current facility-administered medications for this visit. documented in this encounter Plan of Treatment Upcoming Encounters Date Type Department Care Team (Late st Contact Info) Description 08/12/2025 12:40 PM EDT Office Visit [facility] [address] [phone] Emily Castaneda MD [address] [place] [address] 12/02/2025 1:00 PM EST Office Visit [facility] 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- Primary Ischemic cardiomyopathy Other specified forms of chronic ischemic heart disease Essential hypertension Unspecified essential hypertension documented in this encounter Additional Health Concerns Assessment Noted Time PHQ-9 Depression Total Score: 0 06/03/20 25 2:31 PM EDT A fall risk assessment has been complete d for the patient 06/03/2025 2:32 PM EDT A Body Mass Index follow-up plan has been documented for the patient 06/03/2025 2:53 PM EDT documented as of this encounter Care Teams Rn Geriatric Relationship Specialty Start Date End Date Gilbert Gutierrez MD [address] [place] [address] PCP - General 03/17/21 documented as of this encounter
--- OUTSIDE RECORDS SUMMARY | 2025-06-23 10:15 | XMS_ITS | Encounter Summary ---
Author Organization Healthcare Address [address] [place] [address] Care Team Providers Care Linux Unix System Administrator Name Role Phone Gilbert Gutierrez MD Primary Care Provider [phone] Encounter Details Date Type Department Care Team (Latest Contact Info) Description 06/23/2025 10:15 AM EDT Hospital Encounter Cardiac Imaging [address] [place] [phone] ICD (implantable cardioverter-defibr illator) in place Social History Tobacco Use Types Packs/Day Years [...] Description 08/12/2025 12:40 PM EDT Office Visit [facility] [place] 800 [facility]. [address] [place] [address] Emily Castaneda MD [address] [place] [address] 12/02/2025 1:00 PM EST Office Visit [facility] [place] [address] [place] [address] Wilman Amor MD [address] [place] [address] documented as of this encounter Procedures Procedure Name Priority Date/Time Associated Diagnosis Comments CARDIAC DEVICE CHECK - REMOTE - ICD Routine 06/23/2025 11:18 AM EDT ICD (implantable cardioverter-defibr illator) in place documented in this encounter Results * CARDIAC DEVICE CHECK - REMOTE - ICD (06/23/2025 11:18 AM EDT) Anatomical Region Laterality Modality Other Narrative 06/23/2025 1:15 PM EDT Implantable cardiac defibrillator (ICD) remote interrogation. Device successfully sensing intrinsic cardiac events and marking appropriately. Available impedance values demonstrate stable trend within normal limits. Available lead capture thresholds measured without significant change. Adequate safety margin programmed in device permanent outputs. Battery discharge trend stable, appropriate given total time in service. EGMs reviewed against implant indication and diagnosis. It is worth noting that the vendor auto-threshold algorithm is not turned enabled or available on one or more leads. Reported thresholds of these leads with auto-threshold disabled are from an earlier dated in-clinic evaluation. NSVT on 05/03 lasting for 6 seconds Presenting rhythm is Regular ventricular rhythm, likely sinus rhythm. Mabel Martinez Too DUNN CV IMPLANTABLE CARDIAC DEV ICE PROCEDURES [...] documented as of this encounter Care Teams Linux Unix System Administrator Relationship Specialty Start Date End Date Gilbert Gutierrez MD [address] [place] [address] PCP - General 03/17/21 documented as of this encounter
--- OUTSIDE RECORDS SUMMARY | 2025-06-23 10:51 | XMS_ITS | Continuity of Care Document ---
Author Name [facility] Organization [facility] Care Team Providers Care Overage Shortage And Damage Clerk Name Role Phone [facility] Unavailable Unavailable Medications Combined list of outpatient [...] ORAL, ACTAVIS/TEV A, 100 ea. BOTTLE Active [id number] 2023 45 Pharmac y Data Transac tion Service Facilit y MIRTAZAPINE (mirtazapin e), 15 MG, TABLET, ORAL, [employer] 1000 ea. BOTTLE Cancele d [id number] : 2023 0 Pharmac y Data Transac tion Service Facilit y MIRTAZAPINE (mirtazapin e), 15 MG, TABLET, ORAL, [employer] 1000 ea. BOTTLE Active [id number] 2023 90 Pharmac y Data Transac tion Service Facilit y Social History Combined list of available smoking, tobacco, and other social history from Department of Defense and Veterans Affairs facilities. Social History Type Response Date Comment Sourc e This section is an empty social history section. DoD
--- OUTSIDE RECORDS SUMMARY | 2025-06-23 14:22 | XMS_ITS | Encounter Summary ---
Author Organization Healthcare Address [address] [place] [address] Care Team Providers Care Lobster Fisherman Name Role Phone Gilbert Gutierrez MD Primary Care Provider [phone] Encounter Details Date Type Department Care Team (Late st Contact Info) Description 06/09/2025 Telephone [facility] [place] [address] [facility] [place] [address] Stella Gomes APRN [address] [place] [address] Social History Tobacco Use Types [...] encounter Miscellaneous Notes * Telephone Encounter - Geneva Martinez RN - 06/09/2025 12:30 PM EDT Script sent in documented in this encounter Plan of Treatment Upcoming Encounters Date Type Department Care Team (Late st Contact Info) Description 08/12/2025 12:40 PM EDT Office Visit [facility] [address] [facility] [place] [address] mEily Castaneda MD [address] [place] [address] 12/02/2025 1:00 PM EST Office Visit [facility] [address] [facility] [place] [address] Wilman Amor MD [address] [place] [address] documented as of this encounter [...] documented as of this encounter Care Teams Lobster Fisherman Relationship Specialty Start Date End Date Gilbert Gutierrez MD [address] [place] [address] PCP - General 03/17/21 documented as of this encounter
--- OUTSIDE RECORDS SUMMARY | 2025-06-23 14:22 | XMS_ITS | Encounter Summary ---
Author Organization Healthcare Address [address] [place] [address] Care Team Providers Care Armor Officer Name Role Phone Gilbert Gutierrez MD Primary Care Provider [phone] Reason for Visit * Reason Comments Med Refill Encounter Details Date Type Department Care Team (Late st Contact Info) Description 05/27/2025 Refill [facility] [address] [facility], [address] [place] [phone] Lauren Fleming, PIPE STRAIGHTENER [address] [place] [phone] Coronary artery disease involving [place] coronary artery of [place] heart without angina pectoris; Ischemic cardiomyopathy Social History Tobacco Use Types Packs/Day Years [...] Description 08/12/2025 12:40 PM EDT Office Visit [facility] [address] [facility] [place] [address] Emily Castaneda MD [address] [place] [address] 12/02/2025 1:00 PM EST Office Visit [facility] [address] [place] [address] Wilman Amor MD [address] [place] [address] documented as of this encounter Visit Diagnoses Diagnosis Coronary artery disease involving [place] coronary artery of [place] heart without angina pectoris Ischemic cardiomyopathy Other specified forms of chronic ischemic heart disease documented in this encounter Additional Health Concerns Assessment Noted Time PHQ-9 Depression Total Score: 0 02/12/20 25 11:34 AM EDT A fall risk assessment has been complete d for the patient 02/11/2025 11:39 AM EDT A Body Mass Index follow-up plan has been documented for the patient 02/11/2025 12:15 PM EDT documented as of this encounter Care Teams Armor Officer Relationship Specialty Start Date End Date Gilbert Gutierrez MD [address] [place] [address] PCP - General 03/17/21 documented as of this encounter
--- OUTSIDE RECORDS SUMMARY | 2025-06-23 14:22 | XMS_ITS | Encounter Summary ---
Author Organization Healthcare Address [address] [place] [address] Care Team Providers Care Paradichlorobenzene Tender Name Role Phone Gilbert Gutierrez MD Primary Care Provider [phone] Reason for Visit * Reason Comments Med Refill Encounter Details Date Type Department Care Team (Late Contact Info) Description 12/18/2023 Refill [facility] [place] [address] [facility], [address] [place] [phone] Eva Cotto PA [address] [place] [address] Social History Tobacco Use Types [...] Department Care Team (Late Contact Info) Description 08/12/2025 12:40 PM EDT Office Visit [facility] [place] [address] [facility] [place] [phone] Emily Castaneda MD [address] [place] [address] 12/02/2025 1:00 PM EST Office Visit [facility] [place] [address] [place] [address] Wilman Amor MD [address] [place] [phone] documented as of this encounter Visit Diagnoses Not on filedocumented in this encounter Additional Health Concerns Assessment Noted Time A fall risk assessment has been complete d for the patient 10/10/2023 10:33 AM EST A Body Mass Index follow-up plan has been documented for the patient 10/10/2023 11:18 AM EST documented as of this encounter Care Teams Paradichlorobenzene Tender Relationship Specialty Start Date End Date Gilbert Gutierrez MD [address] [place] [address] PCP - General 03/17/21 documented as of this encounter
--- OUTSIDE RECORDS SUMMARY | 2025-06-23 14:22 | XMS_ITS | Encounter Summary ---
Author Organization Healthcare Address [address] [place] [address] Care Team Providers Care Manager Ent Name Role Phone Gilbert Gutierrez MD Primary Care Provider [phone] Encounter Details Date Type Department Care Team (Latest Contact Info) Description 06/03/2025 Travel Social History Tobacco Use Types Packs/Day [...] on file documented as of this encounter Functional Status * Over the [...] television Not at all 06/03/2025 2:31 PM EDT Mike Lechuga Moving or speaking so slowly [...] Not difficult at all 06/03/2025 2:31 PM EDT Michaelle Lechuga documented as of this encounter Plan of Treatment Upcoming Encounters Date Type Department Care Team (Late st Contact Info) Description 08/12/2025 12:40 PM EDT Office Visit [facility] [place] [address] [facility] [address] Emily Castaneda MD [address] [place] [address] 12/02/2025 1:00 PM EST Office Visit [facility] [address] [facility] [address] Wilman Amor MD [address] [place] [address] documented as of this encounter Visit Diagnoses [...] documented as of this encounter Care Teams Manager Ent Relationship Specialty Start Date End Date Gilbert Gutierrez MD [address] [place] [address] PCP - General 03/17/21 documented as of this encounter
--- OUTSIDE RECORDS SUMMARY | 2025-06-23 14:22 | XMS_ITS | Clinical Summary ---
Author Organization Healthcare Address [address] [place] [address] Care Team Providers Care Environmental Systems Coordinator Name Role Phone Gilbert Gutierrez MD Primary Care Provider [phone] Allergies No known active allergies Medications nitroglycerin (Nitrostat) 0.4 MG SL tablet TAKE DIRECTED. Active mirtazapine (Remeron) 15 MG tablet Take 1 tablet (15 mg) by mouth 1 (one) time each day. 021 Active Namzaric 28-10 MG capsule sustained-release 24 hr Take by mouth 1 (one) time each day. 021 Active guaiFENesin (Mucinex) 600 MG 12 hr tablet 1 tablet (600 mg) if needed. 018 Active aspirin 81 MG EC tablet Take 1 tablet (81 mg) by mouth 1 (one) time each day. Active losartan (Cozaar) 50 MG tabletIndications :Coronary artery disease involving [place] coronary artery of [place] heart without angina pectoris,Ischemic cardiomyopathy TAKE 1/2 TABLET(25 MG) BY MOUTH ONCE DAILY 45 tablet 3 024 Active warfarin (Coumadin) 5 MG tabletIndications :Ischemic cardiomyopathy,Ch ronic systolic heart failure (CMS/HCC) Take 1 tablet (5 mg) by mouth 1 (one) time each day. Take as directed per After Visit Summary. 1/2 tablet MWF 30 tablet 11 024 Active metoprolol succinate XL (Toprol-XL) 25 MG 24 hr tabletIndications :Coronary artery disease involving [place] coronary artery of [place] heart without angina pectoris,Ischemic cardiomyopathy TAKE 1/2 TABLET(12.5 MG) BY MOUTH 1 TIME EACH DAY. DO NOT CRUSH OR CHEW 45 tablet 3 025 Active Additional Information Patient not taking.Reported on 06/03/2025 atorvastatin (Lipitor) 80 MG tablet Take 1 tablet by mouth daily. 90 tablet 3 025 Active metoprolol succinate XL (Toprol-XL) 25 MG 24 hr tabletIndications :Coronary artery disease involving [place] coronary artery of [place] heart without angina pectoris,Ischemic cardiomyopathy Take 0.5 tablets (12.5 mg) by mouth 1 (one) time each day. Do not crush or chew. 45 tablet 3 024 2024 Discontinued atorvastatin (Lipitor) 80 MG tablet Take 1 tablet by mouth daily. 025 2024 Discontinued(R eorder) atorvastatin (Lipitor) 80 MG tablet Take 1 tablet by mouth daily. 90 tablet 3 025 2024 Discontinued(R eorder) Active Problems Problem Noted Date Diagnosed Date [...] Encounters Date Type Department Care Team Description 06/23/2025 10:15 AM EDT Hospital Encounter Cardiac Imaging [address] [place] [address] ICD (implantable cardioverter-defibrill ator) in place 06/23/2025 Travel 06/09/2025 Telephone [facility] [place] [address] [place] [address] Stella Gomes APRN 06/03/2025 2:40 PM EDT Office Visit [facility] [place] [address] [place] [address] Wilman Amor MD Coronary artery disease involving [place] coronary artery of [place] heart without angina pectoris (Primary Dx); Ischemic cardiomyopathy; Essential hypertension 06/03/2025 Travel 05/27/2025 [facility] [place] [address] [facility] [place] [address] Lauren Fleming, SHAUN Coronary artery disease involving [place] coronary artery of [place] heart without angina pectoris; Ischemic cardiomyopathy 04/20/2025 [facility] [place] [address] [place] [address] Emily Castaneda MD Ischemic cardiomyopathy; Chronic systolic heart failure (CMS/HCC) 04/19/2025 [facility] [place] 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 Discharge Disposition: Home or Self Care 03/26/2025 Travel from Last 3 Months Immunizations Immunization [...] Comments Coronary artery disease Brother Stroke Father Bryce Coronary artery disease Mother Stroke Sister Relation Name Status Comments Brother Father Bryce Mother Sister Social History Tobacco Use Types [...] Pulse 70 06/03/2025 2:32 PM EDT Temperature 36.8 C (98.2 F) 07/31/2021 10:18 AM EDT Respiratory Rate 16 06/03/2025 2:32 PM EDT Oxygen Saturation 92% 06/03/2025 2:32 PM EDT Inhaled Oxygen Concentration - - Weight 92.1 kg (203 lb 0.7 oz) 06/03/2025 2:32 P M EDT Height 180.3 cm (5' 11 ) 06/03/2025 2:32 PM EDT Body Mass Index 28.32 06/03/2025 2:32 PM EDT Plan of Treatment Upcoming Encounters Date Type Department Care Team (Late st Contact Info) Description 08/12/2025 12:40 PM EDT Office Visit [facility] [place] [address] [facility] [phone] Emily Castaneda MD [address] [place] [address] 12/02/2025 1:00 PM EST Office Visit [facility] [address] [phone] Wilman Amor MD [address] [place] [address] Health Maintenance Due Date Last Done Comments [facility]-Hepatitis C Screening 1950 [facility]-Medicare Annual Wellness (AWV) 1950 [facility]-/Child/Adol SDOH Screenings 1950 [facility]- SDOH Screenings 1968 [facility]-Adult SDOH Screenings 1968 CT Colonography 1995 Colonoscopy 1995 FIT 1995 FOBT 1995 Sigmoidoscopy 1995 [facility]-Abdominal Aortic Aneurysm (AAA) Screening 2015 [id number] Vaccine ( season) 2024 03/01/2023, 06/20/2022, 09/13/2021, Additional history exists [facility]-Influenza Vaccine (#1) 07/05/202508/10, 08/09/2023, 08/13/2022, Additional history exists FIT-DNA 09/04/2025 09/04/2022 [facility]-Colorectal Cancer Screening 09/04/2025 [facility]-Depression Screening 06/03/2026 06/03/2025, 05/06 [facility]-DTaP,Tdap,and Td Vaccines (2 - Td or Tdap) 12/07/2033 12/07/2023 [facility]-Hepatitis A Vaccines Aged Out 06/11/2019, 10/04 No longer eligible based on patient's age to complete this topic [facility]-Pneumococcal Vaccine: 50+ Years Completed 02/11/2023, 10/11/2017, 12/06/2015 [facility]-RSV Vaccine: 60+ Years or Completed 09/30/2023 [facility]-Zoster Vaccines Completed 09/16/2024, [facility]-Obesity Intervention Completed 025, 02/11/2025, 12/03/2024, Additional history exists HPV Vaccines Aged Out [...] this topic Medical Devices Implanted Type Area Vision Impaired Teacher Device Identifier Shelf Expiration Date Model / Serial / Lot [id number] Durata Sj4 [id number] Lead [id number] DURAT A SJ4 / [id number] / 1411-36q Ellipse Vr [id number] Implanted:03/14 (Quantity not on file) Pacemaker 1411-36Q ELLIPSE VR / [id number] / Procedures Procedure Name Priority Date/Time Associated Diagnosis Comments CARDIAC DEVICE CHECK - REMOTE - ICD Routine 06/23/2025 11:18 AM EDT ICD (implantable cardioverter-defibr illator) in place CARDIAC DEVICE CHECK - REMOTE - ICD Routine 03/26/2025 12:36 PM EDT ICD (implantable cardioverter-defibr illator) in place from Last 3 Months Results * CARDIAC DEVICE CHECK - REMOTE - ICD (06/23/2025 11:18 AM EDT) Only the most recent of2 resultswithin the time period is included. Anatomical Region Laterality Modality Other Narrative 06/23/2025 [...] from Last 3 Months Insurance MEDICARE [facility] Care Teams Environmental Systems Coordinator Relationship Specialty Start Date End Date Gilbert Gutierrez MD [address] [place] [address] PCP - General 03/17/21
--- OUTSIDE RECORDS SUMMARY | 2025-06-23 14:22 | XMS_ITS | Encounter Summary ---
Author Organization Healthcare Address [address] [place] [address] Care Team Providers Care Assistant Account Manager Name Role Phone Gilbert Gutierrez MD Primary Care Provider [phone] Encounter Details Date Type Department Care Team (Latest Contact Info) Description 06/23/2025 Travel Social History Tobacco Use Types Packs/Day [...] Description 08/12/2025 12:40 PM EDT Office Visit [facility] [place] [address] [phone] Emily Castaneda MD [address] [place] [address] 12/02/2025 1:00 PM EST Office Visit [facility] [address] [phone] Wilman Amor MD [address] [place] [address] documented as of this encounter Visit Diagnoses [...] documented as of this encounter Care Teams Assistant Account Manager Relationship Specialty Start Date End Date Gilbert Gutierrez MD [address] [place] [address] PCP - General 03/17/21 documented as of this encounter
--- OUTSIDE RECORDS SUMMARY | 2025-06-23 14:22 | XMS_ITS | Clinical Summary ---
Author Organization [facility] Address [address] [facility] [place] [address] Phone Care Team Providers Care Mlt Name Role Phone Pepito Naik MD Unavailable [phone] [ ] Conditions or Problems No information available. Medications No information available. Medications Administered No information available. Allergies, Adverse Reactions, Alerts No information available. Results No information available. Plan of Care No information available. Procedures No information available. Vital Signs No information available. Immunizations No information available. Advance Directives No information available.
[2025-06-23 14:45] LABS: PHA INR Fingerstick 2.0 (0.9-1.1)
== END 2025-06-23 14:47 ==
LOC: ACC 14:20
PROVIDERS: PCP Internal Medicine Adolescent Medicine; Visit Provider Internal Medicine Adolescent Medicine
DX: Z79.01 Long term (current) use of anticoagulants (principal)
CPT/HCPCS: 85610; 99211; G0463

== ENCOUNTER 2025-07-15 12:50 | Emergency (ER) | payer MEDICARE, OTHER, SELFPAY ==
--- OUTSIDE RECORDS SUMMARY | 2025-06-03 14:40 | XMS_ITS | Encounter Summary ---
Author Organization Healthcare Address [address] [place] [address] Care Team Providers Care Road Machine Runner Name Role Phone Gilbert Gutierrez MD Primary Care Provider [phone] Reason for Referral * Consultation (Routine) - Authorized Specialty Diagnoses / Procedures Referred By Contac t Referred To Contact Diagnoses Coronary artery disease involving [place]ow[place] coronary artery of united [place] heart without angina pectoris Stella Gomes APRN [address] [place] [address] Phone: tel: fax: Referral ID Status Reason Start Date Expiration Date V isits Requested Visits Authorized [id number] Authorized 06/03/2025 12/03/2026 1 1 Reason for Visit * Reason Comments Follow-up Encounter Details Date Type Department Care Team (Late st Contact Info) Description 06/03/2025 2:40 PM EDT Office Visit [facility] [place] [address] [facility] [place] [address] Wilman Amor MD [address] [place] [address] Coronary artery disease involving [place]ow[place] coronary artery of united [place] heart without angina pectoris (Primary Dx); Ischemic [...] encounter Miscellaneous Notes * Progress Notes - Stella Gomes, SHAUN - 06/03/2025 2:40 PM EDT [facility] Navid Urbina is a 75 y.o. male who presents to [facility] [place] for follow up. PMH: VF arrest in [...] reason. He is exercising via walking at [employer]. Patient denies chest pain with exertion, palpitations, [...] INR 2.5 to 3.5 Prevention of recurrent NH INR 2.5 to 3.5 HGBA1C 6.1 (H) [...] Description 08/12/2025 12:40 PM EDT Office Visit [facility] [address] [phone] Emily Castaneda MD [address] [place] [address] 12/02/2025 1:00 PM EST Office Visit [facility] [address] [phone] Wilman Amor MD [address] [place] [address] Scheduled Referrals Name Type Priority Associated Diagnoses Order Schedule Follow Up Cardiology Outpatient Referral Routine Coronary artery disease involving united keetoow[place] coronary artery of united [place]ow[place] heart without angina pectoris Expected: 12/04/2025, Expires: 12/04/2026 documented as of this encounter Visit Diagnoses Diagnosis Coronary artery disease involving united [place]ow[place] coronary artery of united ke[place]ow[place] heart without angina pectoris- Primary Ischemic cardiomyopathy [...] documented as of this encounter Care Teams Road Machine Runner Relationship Specialty Start Date End Date Gilbert Gutierrez MD [address] [place] [address] PCP - General 03/17/21 documented as of this encounter
--- OUTSIDE RECORDS SUMMARY | 2025-06-23 10:15 | XMS_ITS | Encounter Summary ---
Author Organization Healthcare Address [address] [place] [address] Care Team Providers Care Fare Enforcement Officer Name Role Phone Gilbert Gutierrez MD Primary Care Provider [phone] Encounter Details Date Type Department Care Team (Latest Contact Info) Description 06/23/2025 10:15 AM EDT - 06/23/2025 11:59 PM EDT Hospital Encounter Cardiac Imaging [address] [place] [address] ICD (implantable cardioverter-defibr illator) in place Discharge [...] tablet Take 1 tablet by mouth daily. 90 tablet 3 06/09/2025 guaiFENesin (Mucinex) 600 MG 12 hr tablet 1 tablet (600 mg) if needed. 01/06/2018 losartan (Cozaar) 50 MG tabletIndications:Co ronary artery disease involving quile[place] coronary artery of quileute heart without angina pectoris,Ischemic cardiomyopathy TAKE 1/2 TABLET(25 MG) BY MOUTH ONCE DAILY 45 tablet 3 12/18/2023 metoprolol succinate XL (Toprol-XL) 25 MG 24 hr tabletIndications:Co ronary artery disease involving quile[place] coronary artery of quileute heart without angina pectoris,Ischemic cardiomyopathy TAKE 1/2 TABLET(12.5 MG) BY MOUTH 1 TIME EACH DAY. DO NOT CRUSH OR CHEW 45 tablet 3 05/27/2025 mirtazapine (Remeron) 15 MG tablet Take 1 [...] Description 08/12/2025 12:40 PM EDT Office Visit [facility] [address] [address] Emily Castaneda MD [address] [place] [phone] 12/02/2025 1:00 PM EST Office Visit [facility] [address] [address] Wilman Amor MD [address] [place] [address] documented as of this encounter Procedures Procedure [...] documented as of this encounter Care Teams Fare Enforcement Officer Relationship Specialty Start Date End Date Gilbert Gutierrez MD [address] [place] [address] PCP - General 03/17/21 documented as of this encounter
[2025-07-15 14:22] VITALS: BP 139/71; PULSE 75; RESP 19; TEMP 36.8; O2SAT 98; BMI 27.8
--- NOTE | 2025-07-15 14:39 | ED_ITS ---
<Statement entered by Barrera Moon DO - 07/16/25 00:01> I was consulted by the DIANE, and we discussed the complexity of problems being addressed. I approved the treatment and management plan for this patient's care in the emergency department, thus performing a substantive portion of the medical decision making. At time of shift change chest x-ray and second troponin was pending. Second troponin resulted showing no acute abnormality. Chest x-ray showed no acute abnormality. This patient was discharged home in stable condition per plan discussed with Dr. Ledesma. Barrera Moon DO Discharge Plan Disposition Chief Complaint: Cough Prescriptions Prescriptions: No Action levofloxacin 500 MG tablet 500 mg PO DAILY warfarin 5 mg Tablet 5 mg PO SUTUWETHSA warfarin 5 mg Tablet 2.5 mg PO MOFR atorvastatin 80 MG tablet 80 mg PO HS MDD 80 aspirin [Aspir-81] 81 MG tablet,delayed release (DR/EC) 81 mg PO DAILY MDD 81 Namzaric 1 EACH capsule,sprinkle,ER 24hr 1 ea PO HS MDD 28 Patient Comments: 28/10 MG cyanocobalamin (vitamin B-12) [Vitamin B-12] 500 MCG tablet 500 mcg PO DAILY mirtazapine 30 MG tablet 15 mg PO HS Patient Comments: 30 MG TABLETS, PATIENT TAKES 1/2 TAB (15 MG) Referrals Follow up/Referrals: Gilbert Gutierrez MD [Primary Care Provider, Internal Medicine] - See instructions Activity Restrictions/Add. Instructions Additional Instructions/Restrictions: Thank you for allowing us to care for you today. Fortunately your chest x-ray is normal and there is no evidence of pneumonia. You may have a viral infection. Your INR was elevated today at 4.3. Please call your primary care provider tomorrow and inform their office of this finding. They will provide further recommendations on how to adjust your medication and may have you do follow-up blood work. Return to the ER if any symptoms worsen, if you develop chest pain, or have shortness of breath. Clinical Impressions Clinical Impression: Cough Instructions Patient Instructions: Cough Print Language Print Language: Thai Discharge ED Provider: Kimmie Ledesma General Adult HPI <JW Washington - Last Filed: 07/15/25 19:14> General Chief complaint: Cough Stated complaint: weak, head joanie., low b/p Time Seen by Provider: 07/15/25 14:36 Mode of Arrival: Ambulatory Source of Information: Patient and Relative Description of Symptoms (Recalled from ER Triage Doc. by RN): Patient presents to ED from PCP's office, family at bedside reports they went there today after having cough and congestion x2 days. Reports patient's BP was low so they told them to come to the ED for further assessment. BP within normal limits at this time. Patient denies chest pain, denies SOA. Family reports low grade fever at home, patient afebrile at this time. History of Present Illness HPI narrative: This is a 75-year-old male with a history of CAD s/p AICD followed by cardiology who presents to the emergency department today with his for evaluation of a cough. Patient was seen in his primary care's office prior to arrival to the emergency department. While there, provider felt he had crackles in his lungs and his blood pressure was found to be low. Because of this they advised ED evaluation. The patient and his report 2 days of a cough. It seems productive in nature and seems worse at night. The cough comes in coughing fits. No vomiting or fever. The patient does have a runny nose. No known sick contacts. Patient denies chest pain, shortness of breath, lower extremity swelling. Related Data Home Medications ?Medication ?Instructions ?Recorded ?Confirmed aspirin 81 mg tablet,delayed 81 mg PO DAILY Heart dise ase 11/12/17 10/18/22 release (Aspir-) atorvastatin 80 mg tablet 80 mg PO HS Cholesterol /07/2210/18/22 memantine ER 28 mg-donepezil 10 mg 1 ea PO HS memory 0 11/12/17 10/18/22 capsule sprinkle,ext.release 24 hr (Namzaric) cyanocobalamin (vitamin B-12) 500 500 mcg PO DAILY Sup plement 11/14/17 10/18/22 mcg tablet (Vitamin B-12) mirtazapine 30 mg tablet 15 mg PO HS Depression 11/1410/18/22 levofloxacin 500 mg tablet 500 mg PO DAILY . 01/18/20 10/18/22 warfarin 5 mg tablet 2.5 mg PO MOFR BLOOD PRESSUR E 03/21/23 03/21/23 warfarin 5 mg tablet 5 mg PO SUTUWETHSA Blood thi nner 03/21/23 03/21/23 Allergies Allergy/AdvReac Type Severity Reaction Status Date / Time No Known Allergies Allergy Verified 11/13/17 23:48 PFSH <JW Washington - Last Filed: 07/15/25 19:14> [facility] Disclaimer: The information contained in this section may have been updated after the patient was seen, as this information can be updated by other users. Social History Smoking Status: Former smoker tobacco type: cigarettes packs per day: 1 second hand exposure: No alcohol intake: never current occupational status: retired Travel in the last 8 weeks?: None household members: spouse housing: house caffeine: Yes Have you lived/traveled outside US in past 30 days?: No Contact w/someone who lives/traveled outside US past 30 days?: No Exposure to someone with infectious disease in past 14 days?: No Do you have a fever (greater than 100.4 F or 38 C)?: No Have you tested positive for COVID-19?: No Exposed to someone with COVID-19 in past 14 days?: No Do you have a sore throat?: No Do you have a cough?: No Do you have any weakness?: No Do you have any diarrhea?: No Are you experiencing any unusual bleeding?: No Do you have any muscle aches/pain?: No Do you have any abdominal pain?: No Are you experiencing loss of taste or smell?: No <WJ Washington - Last Filed: 07/15/25 19:14> ROS Obtained: Yes Systems reviewed as appropriate & no additional complaints except as documented Physical Exam <JW Washington - Last Filed: 07/15/25 19:14> General General appearance: alert and in no apparent distress Head Head exam: atraumatic and normocephalic ENT ENT exam: Present other (Clear rhinorrhea present.) Neck Neck exam: Present full ROM Respiratory Respiratory exam: Present normal lung sounds bilaterally; Absent respiratory distress, wheezes or prolonged expiratory phase Cardiovascular Cardiovascular exam: Present regular rate and normal rhythm Abdominal Exam Abdominal exam: Present soft; Absent distention or tenderness Neurological Exam Neurological exam: Present alert and oriented X3 Medical Decision Making <JW Washington Last Filed: 07/15/25 19:14> Medical Records Medical records reviewed: Yes I reviewed the patient's medical records. Screening: Per USPSTF and CDC recommendations, given the prevalence of disease in our region, it is our hospital?s policy to screen for HIV and viral Hepatitis for all patients aged 18 and over and those with ongoing risk factors. [place] Inquiry Pt receiving controlled substance: No Vital Signs: 07/15/25 14:22 07/15/25 16:29 07/15/25 18:19 Temperature 98.3 F Temperature Source Oral Pulse Rate 89 79 Pulse Rate [Left] 75 Respiratory Rate 19 17 17 Blood Pressure 159/101 H 137/66 Blood Pressure [Right Arm] 139/71 Blood Pressure Mean [Right Arm] 93 Blood Pressure Source Automatic Cuff Blood Pressure Source [Right Arm] Automatic Cuff Blood Pressure Position Sitting Blood Pressure Position [Right Arm] Supine 02 Sat by Pulse Oximetry 98 98 99 Oxygen Delivery Method Room Air Room Air Room Air Lab Data Lab Results 07/15/25 15:03: PT 42.8 H, INR 4.30 H 07/15/25 15:06: WBC 8.8, RBC 5.11, Hgb 15.9, Hct 47.5, MCV 93.0, MCH 31.1, MCHC 33.5, RDW 13.7, Plt Count 174, MPV 10.5 H, Neut % (Auto) 54.7, Lymph % (Auto) 29.4, [place] % (Auto) 14.3 H, Eos % (Auto) 1.1, Baso % (Auto) 0.3, Neut # (Auto) 4.8, Lymph # (Auto) 2.6, [place] # (Auto) 1.3 H, Eos # (Auto) 0.1, Baso # (Auto) 0.0, Sodium 141, Potassium 4.2, Chloride 109 H, Carbon Dioxide 27, Anion Gap 9.2, BUN 12, Creatinine 1.50 H, Estimated Creat Clear 53, Estimated GFR 46 L, E st GFR ( Amer) 55 L, Glucose 96, Calcium 8.3 L, Total Bilirubin 0.9, AST 32, ALT 14, Alkaline Phosphatase 95, Troponin I < 0.01, Total Protein 7.3, Albumin 4.1, Globulin 3.2, Albumin/Globulin Ratio 1.3, SARS-CoV-2 (PCR) Not detected, Influenza A Untype (PCR) Not detected, Influenza Type B (PCR) Not detected 07/15/25 18:18: Troponin I < 0.01 07/15/25 15:06 07/15/25 15:06 Orders (Tests/Meds): ED MEDICATIONS Discontinued Medications Generic Name Dose Route Start Last Admin Trade Name Elle PRN Reason Stop Dose Admin Sodium Chloride 500 ml 07/15/25 16:08 07/15/25 16:27 Sodium Chloride 0.9% 500ml Bag IV 07/15/25 16:09 500 ml ONCE ONE Administration ORDERS Category Date Time Status CXR --portable [XR chest portable] Stat Exams 07/15/25 14:47 Completed CBC w/Auto Diff [Complete Blood Count Auto Diff] Stat Lab 07/15/25 15:06 Completed CMP [Comprehensive Metabolic Panel] Stat Lab 07/15/25 15:06 Completed PT INR [Prothrombin Time INR] Stat Lab 07/15/25 15:03 Completed Rapid PCR Covid and Flu A/B Stat Lab 07/15/25 15:06 Completed Trop I [Troponin I] Stat Lab 07/15/25 15:06 Completed Troponin I Q3H Lab 07/15/25 18:18 Completed Troponin I Q3H Lab 07/15/25 21:00 Ordered Medical Decision Narrative: In summary, this is a 75-year-old male with a past medical history of CAD s/p AICD presenting to the emergency department today with his for evaluation of a cough. Cough has been going on for the last 2 days. Patient has also had a runny nose. No fevers at home. He denies any shortness of breath or cough. Patient was evaluated by his primary care provider and found to have a low blood pressure as well as possible crackles in the lung. On exam patient is well-appearing and in no acute distress. Vital signs are normal. Heart sounds normal. Respiratory rate and effort are normal. Bilateral lung oneil without adventitious sounds- no wheezing or rhonchi appreciated. There is no swelling to the extremities. DP and PT pulses 2+ and equal bilaterally. Abdomen is soft, nondistended, nontender to palpation. Differential diagnoses include but are not limited to COVID, flu, other viral URI, pneumonia, seasonal allergies, reactive airway, among others. Low concern for cardiac etiology at this time given patient does not have chest pain or shortness of breath. Will obtain CBC with differential, CMP, troponin, EKG, chest x-ray, PT/INR, COVID/Flu swab. 3:28 PM EKG unchanged from prior. Sinus rhythm. INR 4.30 and higher than therapeutic dose and prior lab values. Patient is not having any bleeding or bruising. Next visit for repeat labs is not until August. Patient will call his primary care provider in the morning and let them know of this elevated value. First Troponin is negative. 3:57 PM Chest x-ray normal. No acute cardiopulmonary disease. Patient remains well. We are awaiting second troponin. 7:11 PM Second troponin is negative. Patient has remained well while in the emergency department without any changes. Vital signs have remained stable. He has not had any hypotensive episodes while in the emergency department. Etiology of cough may be viral. The patient and his will call primary care provider in the morning regarding elevated INR today. Aside from this finding, his workup is otherwise unremarkable and reassuring. Return precautions were discussed and understood. Patient and his feel comfortable with her treatment and discharge plan and all questions have been answered at this time. I was consulted by the DIANE, and we discussed the complexity of problems being addressed. I approved the treatment and management plan for this patient's care in the emergency department, thus performing a substantial portion of the medical decision making. Kimmie Ledesma MD At 3 PM transfer care given to Dr. Moon to follow-up laboratory workup chest x-ray and ultimately disposition with DIANE. <Kimmie Ledesma MD - Last Filed: 07/15/25 15:49> Vital Signs: 07/15/25 14:22 07/15/25 16:29 07/15/25 18:19 Temperature 98.3 F Temperature Source Oral Pulse Rate 89 79 Pulse Rate [Left] 75 Respiratory Rate 19 17 17 Blood Pressure 159/101 H 137/66 Blood Pressure [Right Arm] 139/71 Blood Pressure Mean [Right Arm] 93 Blood Pressure Source Automatic Cuff Blood Pressure Source [Right Arm] Automatic Cuff Blood Pressure Position Sitting Blood Pressure Position [Right Arm] Supine 02 Sat by Pulse Oximetry 98 98 99 Oxygen Delivery Method Room Air Room Air Room Air Lab Data Lab Results 07/15/25 15:03: PT 42.8 H, INR 4.30 H 07/15/25 15:06: WBC 8.8, RBC 5.11, Hgb 15.9, Hct 47.5, MCV 93.0, MCH 31.1, MCHC 33.5, RDW 13.7, Plt Count 174, MPV 10.5 H, Neut % (Auto) 54.7, Lymph % (Auto) 29.4, [place] % (Auto) 14.3 H, Eos % (Auto) 1.1, Baso % (Auto) 0.3, Neut # (Auto) 4.8, Lymph # (Auto) 2.6, [place] # (Auto) 1.3 H, Eos # (Auto) 0.1, Baso # (Auto) 0.0, Sodium 141, Potassium 4.2, Chloride 109 H, Carbon Dioxide 27, Anion Gap 9.2, BUN 12, Creatinine 1.50 H, Estimated Creat Clear 53, Estimated GFR 46 L, E st GFR ( Amer) 55 L, Glucose 96, Calcium 8.3 L, Total Bilirubin 0.9, AST 32, ALT 14, Alkaline Phosphatase 95, Troponin I < 0.01, Total Protein 7.3, Albumin 4.1, Globulin 3.2, Albumin/Globulin Ratio 1.3, SARS-CoV-2 (PCR) Not detected, Influenza A Untype (PCR) Not detected, Influenza Type B (PCR) Not detected 07/15/25 18:18: Troponin I < 0.01 Orders (Tests/Meds): ED MEDICATIONS Discontinued Medications Generic Name Dose Route Start Last Admin Trade Name Freq PRN Reason Stop Dose Admin Sodium Chloride 500 ml 07/15/25 16:08 07/15/25 16:27 Sodium Chloride 0.9% 500ml Bag IV 07/15/25 16:09 500 ml ONCE ONE Administration ORDERS Category Date Time Status CXR --portable [XR chest portable] Stat Exams 07/15/25 14:47 Completed CBC w/Auto Diff [Complete Blood Count Auto Diff] Stat Lab 07/15/25 15:06 Completed CMP [Comprehensive Metabolic Panel] Stat Lab 07/15/25 15:06 Completed PT INR [Prothrombin Time INR] Stat Lab 07/15/25 15:03 Completed Rapid PCR Covid and Flu A/B Stat Lab 07/15/25 15:06 Completed Trop I [Troponin I] Stat Lab 07/15/25 15:06 Completed Troponin I Q3H Lab 07/15/25 18:18 Completed Troponin I Q3H Lab 07/15/25 21:00 Ordered Medical Decision Narrative: In summary, this is a 75-year-old male with a past medical history of CAD s/p AICD presenting to the emergency department today with his for evaluation of a cough. Cough has been going on for the last 2 days. Patient has also had a runny nose. No fevers at home. He denies any shortness of breath or cough. Patient was evaluated by his primary care provider and found to have a low blood pressure as well as possible crackles in the lung. On exam patient is well-appearing and in no acute distress. Vital signs are normal. Heart sounds normal. Respiratory rate and effort are normal. Rhonchi appreciated in the bilateral lung oneil. There is no swelling to the extremities. DP and PT pulses 2+ and equal bilaterally. Abdomen is soft, nondistended, nontender to palpation. Differential diagnoses include but are not limited to COVID, flu, other viral URI, pneumonia, seasonal allergies, reactive airway, among others. Low concern for cardiac etiology at this time given patient does not have chest pain or shortness of breath. Will obtain CBC with differential, CMP, troponin, EKG, chest x-ray, PT/INR, COVID/Flu swab. 3:28 PM EKG unchanged from prior. Sinus rhythm. INR 4.30 and higher than therapeutic dose and prior lab values. I was consulted by the DIANE, and we discussed the complexity of problems being addressed. I approved the treatment and management plan for this patient's care in the emergency department, thus performing a substantial portion of the medical decision making. Kimmie Ledesma MD At 3 PM transfer care given to Dr. Moon to follow-up laboratory workup chest x-ray and ultimately disposition with DIANE. Critical Care <Kimmie Ledesma MD - Last Filed: 07/15/25 15:49> Critical Care Time Critical Care Time: No
--- NOTE | 2025-07-15 14:47 | XR_ITS ---
FINAL REPORT CLINICAL HISTORY: cough, rhonchi COMPARISON: 08/22/2018 FINDINGS: A portable view of the chest was obtained. Cardiac and mediastinal silhouettes are within normal limits. There has been no change in the left AICD. The lungs are clear. There is no pleural effusion or pneumothorax. IMPRESSION: No acute process on this portable exam. Reviewed, Interpreted and Dictated by Lidia Ca MD Transcribed by Anna Valera Authenticated and [facility]
--- OUTSIDE RECORDS SUMMARY | 2025-07-15 14:56 | XMS_ITS | Encounter Summary ---
Author Organization Healthcare Address [address] [place] [address] Care Team Providers Care Performance Manager Name Role Phone Gilbert Gutierrez MD Primary Care Provider [phone] Reason for Visit * Reason Comments Med Refill Encounter Details Date Type Department Care Team (Late st Contact Info) Description 05/27/2025 Refill [facility] [place] [address], [address] [place] [id number] Lauren Fleming, TREATMENT SUPERVISOR [address] [place] [phone] Coronary artery disease involving [place] coronary artery of [place] heart without angina pectoris; Ischemic cardiomyopathy Social [...] Description 08/12/2025 12:40 PM EDT Office Visit [facility] [place] [address] [place] [phone] Emily Castaneda MD [address] [place] [address] 12/02/2025 1:00 PM EST Office Visit [facility] [place] [address] [place] [address] Wilman Amor MD [address] [place] [address] documented as of this encounter Visit Diagnoses Diagnosis Coronary artery disease involving [place] coronary artery of [place] heart without angina pectoris Ischemic cardiomyopathy Other [...] documented as of this encounter Care Teams Performance Manager Relationship Specialty Start Date End Date Gilbert Gutierrez MD [address] [place] [address] PCP - General 03/17/21 documented as of this encounter
--- OUTSIDE RECORDS SUMMARY | 2025-07-15 14:56 | XMS_ITS | Encounter Summary ---
Author Organization Healthcare Address [address] [place] [address] Care Team Providers Care Rampman Name Role Phone Gilbert Gutierrez MD Primary Care Provider [phone] Encounter Details Date Type Department Care Team (Late st Contact Info) Description 06/09/2025 Telephone [facility] [place] [address] [place] [address] Stella Gomes APRN [address] [place] [address] Social History Tobacco Use Types [...] Description 08/12/2025 12:40 PM EDT Office Visit [facility] [address] [place] [phone] Emily Castaneda MD [address] [place] [address] 12/02/2025 1:00 PM EST Office Visit [facility] [address] [place] [phone] Wilman Amor MD [address] [place] [address] documented as of this encounter [...] documented as of this encounter Care Teams Rampman Relationship Specialty Start Date End Date Gilbert Gutierrez MD [address] [place] [address] PCP - General 03/17/21 documented as of this encounter
--- OUTSIDE RECORDS SUMMARY | 2025-07-15 14:56 | XMS_ITS | Encounter Summary ---
Author Organization Healthcare Address [address] [place] [address] Care Team Providers Care Face Worker Name Role Phone Gilbert Gutierrez MD Primary Care Provider [phone] Encounter Details Date Type Department Care Team [...] Description 08/12/2025 12:40 PM EDT Office Visit [facility] [place] [address] [phone] Emily Castaneda MD [address] [place] [address] 12/02/2025 1:00 PM EST Office Visit [facility] [address] [phone] Wilman Amor MD [address] [place] [address] documented as of this encounter Visit Diagnoses [...] documented as of this encounter Care Teams Face Worker Relationship Specialty Start Date End Date Gilbert Gutierrez MD [address] [place] [address] PCP - General 03/17/21 documented as of this encounter
--- OUTSIDE RECORDS SUMMARY | 2025-07-15 14:56 | XMS_ITS | Encounter Summary ---
Author Organization Healthcare Address [address] [place] [address] Care Team Providers Care Nailer Operator Name Role Phone Gilbert Gutierrez MD Primary Care Provider [phone] Reason for Visit * Reason Comments Med Refill Encounter Details Date Type Department Care Team (Late Contact Info) Description 12/18/2023 Refill [facility] [place] [address] [place] [phone] Eva Cotto PA [address] [place] [address] Social History Tobacco Use Types [...] Description 08/12/2025 12:40 PM EDT Office Visit [facility] [place] [address] [facility] [place] [phone] Emily Castaneda MD [address] [place] [address] 12/02/2025 1:00 PM EST Office Visit [facility] [place] [address] [place] [address] Wilman Amor MD [address] [place] [phone] documented as of this encounter Visit Diagnoses Not on filedocumented in this encounter Additional Health Concerns Assessment Noted Time A fall risk assessment has been complete d for the patient 10/10/2023 10:33 AM EST A Body Mass Index follow-up plan has been documented for the patient 10/10/2023 11:18 AM EST documented as of this encounter Care Teams Nailer Operator Relationship Specialty Start Date End Date Gilbert Gutierrez MD [address] [place] [address] PCP - General 03/17/21 documented as of this encounter
--- OUTSIDE RECORDS SUMMARY | 2025-07-15 14:56 | XMS_ITS | Clinical Summary ---
Author Organization [facility] Address [address] [place] [address] Phone Care Team Providers Care Shingle Weaver Name Role Phone Pepito Naik MD Unavailable [phone] [ ] Conditions or Problems No information available. Medications No information available. Medications Administered No information available. Allergies, Adverse Reactions, Alerts No information available. Results No information available. Plan of Care No information available. Procedures No information available. Vital Signs No information available. Immunizations No information available. Advance Directives No information available.
--- OUTSIDE RECORDS SUMMARY | 2025-07-15 14:56 | XMS_ITS | Clinical Summary ---
Author Organization Healthcare Address [address] [place] [address] Care Team Providers Care Patent Solicitor Name Role Phone Gilbert Gutierrez MD Primary Care Provider [phone] Allergies No known active allergies Medications nitroglycerin [...] 50 MG tabletIndications: Coronary artery disease involving [place] coronary artery of [place] heart without angina pectoris,Ischemic cardiomyopathy TAKE 1/2 [...] 24 hr tabletIndications: Coronary artery disease involving [place] coronary artery of [place] heart without angina pectoris,Ischemic cardiomyopathy TAKE 1/2 TABLET(12.5 MG) BY MOUTH 1 TIME EACH DAY. DO NOT CRUSH OR CHEW 45 tablet 3 05/27/20 Active Additional Information Patient not taking.Reported on 06/03/2025 atorvastatin (Lipitor) 80 MG tablet Take 1 tablet by mouth daily. 90 tablet 3 06/09/20 Active Active Problems Problem Noted Date Diagnosed [...] Care Team Description 06/23/2025 10:15 AM EDT - 06/23/2025 11:59 PM EDT Hospital Encounter Cardiac Imaging [address] [place] [phone] ICD (implantable cardioverter-defibrill ator) in place Discharge Disposition: Home or Self Care 06/23/2025 Travel 06/09/2025 Telephone [facility] [place] [address] [place] [phone] Stella Gomes APRN 06/03/2025 2:40 PM EDT Office Visit [facility] [place] [address] [place] [address] Wilman Amor MD Coronary artery disease involving [place] coronary artery of [place] heart without angina pectoris (Primary Dx); Ischemic cardiomyopathy; Essential hypertension 06/03/2025 Travel 05/27/2025 Refill [facility] [place] [address] [facility], [address] [place] [phone] Lauren Fleming, SHAUN Coronary artery disease involving [place] coronary artery of [place] heart without angina pectoris; Ischemic cardiomyopathy 04/20/2025 [facility] [place] [address] [place] [address] Emily Castaneda MD Ischemic cardiomyopathy; Chronic systolic heart failure ([facility]/HCC) 04/19/2025 [facility] [place] [address] [place] [address] Emily Castaneda MD Ischemic cardiomyopathy; Chronic systolic heart failure ([facility]/HCC) from Last 3 Months Immunizations Immunization Administration [...] Sister Relation Name Status Comments Brother Father Denaeromisa Mother Sister Social History Tobacco Use Types [...] Description 08/12/2025 12:40 PM EDT Office Visit [facility] [address] [address] Emily Castaneda MD [address] [place] [address] 12/02/2025 1:00 PM EST Office Visit [facility] [address] [address] Wilman Amor MD [address] [place] [phone] Health Maintenance Due Date Last Done Comments [facility]-Hepatitis C Screening 1950 [facility]-Medicare Annual Wellness (AWV) 1950 [facility]-Infant/Child/Adol SDOH Screenings 1950 [facility]- SDOH Screenings 1968 [facility]-Adult SDOH Screenings 1968 CT Colonography 1995 Colonoscopy 1995 FIT 1995 FOBT 1995 Sigmoidoscopy 1995 [facility]-Abdominal Aortic Aneurysm (AAA) Screening 2015 [id number] Vaccine ( season) 2025 03/01/2023, 06/20/2022, 09/13/2021, Additional history exists [facility]-Influenza Vaccine (#1) 07/05/202508/10, 08/09/2023, 08/13/2022, Additional history [...] this topic Medical Devices Implanted Type Area Hot Dip Plater Device Identifier Shelf Expiration Date Model / Serial / Lot 7122q Durata Sj4 [id number] Lead [id number] DURAT A SJ4 / [id number] / 1411-36q Ellipse Vr [id number] Implanted:03/14 (Quantity not on file) Pacemaker 1411-36Q ELLIPSE VR / [id number] / Procedures Procedure Name Priority Date/Time Associated [...] Regular ventricular rhythm, likely sinus rhythm. Mabel Gage APRN CV IMPLANTABLE CARDIAC DEV ICE PROCEDURES Final Result from Last 3 Months Insurance MEDICARE [facility] Care Teams Patent Solicitor Relationship Specialty Start Date End Date Gilbert Gutierrez MD [address] [place], [place] [address] PCP - General 03/17/21
--- OUTSIDE RECORDS SUMMARY | 2025-07-15 14:56 | XMS_ITS | Encounter Summary ---
Author Organization Healthcare Address [address] [place] [address] Care Team Providers Care Area Sales Manager Name Role Phone Gilbert Gutierrez MD Primary Care Provider [phone] Encounter Details Date Type Department Care Team [...] Description 08/12/2025 12:40 PM EDT Office Visit [facility] [place] [address] [facility] [address] Emily Castaneda MD [address] [place] [address] 12/02/2025 1:00 PM EST Office Visit [facility] [address] [facility] [address] Wilman Amor MD [address] [place] [address] documented as of this encounter Visit Diagnoses [...] documented as of this encounter Care Teams Area Sales Manager Relationship Specialty Start Date End Date Gilbert Gutierrez MD [address] [place] [address] PCP - General 03/17/21 documented as of this encounter
[2025-07-15 15:18] LABS: Coronavirus 19, PCR Not Detected (NotDetected); Influenza A, PCR Not Detected (NotDetected); Influenza B, PCR Not Detected (NotDetected)
[2025-07-15 15:20] LABS: Hematocrit 47.5 % (42.0-52.0); Hemoglobin 15.9 g/dL (14.1-18.0); Immature Granulocytes % 0.2 %; Mean Corpuscular HGB Conc 33.5 g/dL (31.8-35.4); Mean Corpuscular Hemoglobin 31.1 pg (27.0-31.2); Mean Corpuscular Volume 93.0 fl (80-94); Nucleated Red Blood Cells % 0 %; Platelet Count 174 K/mm3 (142-424); Red Blood Count 5.11 M/mm3 (4.60-6.20); Red Cell Distribution Width-SD 46.5 fL; White Blood Count 8.8 K/mm3 (4.8-10.8)
[2025-07-15 15:31] LABS: Albumin Level 4.1 g/dl (3.5-5.0); Chloride 109 mmol/L (98-107)
[2025-07-15 15:32] LABS: Potassium 4.2 mmoL/L (3.5-5.1); Sodium 141 mmol/L (136-145)
[2025-07-15 15:34] LABS: INR 4.30 (0.9-1.1); Prothrombin Time 42.8 seconds (10.1-12.5)
[2025-07-15 15:34] LABS: Blood Urea Nitrogen 12 mg/dl (9-20); Creatinine Clearance Estimated 53 mL/min (50-200); Creatinine,Serum 1.50 mg/dl (0.66-1.25); Estimated Glomerular Filt Rate 46 ml/min (>60); GFR (African American) 55 ML/MIN (>60)
[2025-07-15 15:35] LABS: Alanine Aminotransferase 14 U/L (12-78); Albumin/Globulin Ratio 1.3 (1.1-1.8); Alkaline Phosphatase 95 U/L (38-126); Anion Gap 9.2 mEq/L (5-15); Aspartate Amino Transferase 32 U/L (17-59); Bilirubin,Total 0.9 mg/dl (0.2-1.3); Calcium 8.3 mg/dl (8.4-10.2); Carbon Dioxide 27 mmol/L (22.0-30.0); Globulin 3.2 g/dL (1.3-3.2); Glucose 96 mg/dl (74-100); Total Protein,Serum 7.3 g/dl (6.3-8.2)
[2025-07-15 15:49] LABS: Troponin I < 0.01 ng/ml (0.00-0.034)
[2025-07-15] MEDS: SODIUM CHLORIDE 0.9% 500ML BAG 500 ML IV (16:27)
[2025-07-15 16:29] VITALS: BP 159/101; PULSE 89; RESP 17; O2SAT 98
[2025-07-15 18:19] VITALS: BP 137/66; PULSE 79; RESP 17; O2SAT 99
[2025-07-15 19:08] LABS: Troponin I < 0.01 ng/ml (0.00-0.034)
[2025-07-15 19:25] VITALS: BP 159/72; PULSE 71; RESP 16; TEMP 36.7; O2SAT 95
== END 2025-07-15 19:27 | disposition home or self-care (01) ==
PROVIDERS: Physician Assistant; Emergency Provider Student in an Organized Health Care Education/Training Program; PCP Internal Medicine Adolescent Medicine
DX: R05.9 Cough, unspecified (principal); I25.10 Atherosclerotic heart disease of native coronary artery without angina pectoris
CPT/HCPCS: 71045; 80053; 84484; 85025; 85610; 87636; 93005; 96365; 99284; J7040

== ENCOUNTER 2025-08-04 14:22 | Outpatient (CLI) | payer MEDICARE, OTHER, SELFPAY ==
--- OUTSIDE RECORDS SUMMARY | 2025-06-23 10:15 | XMS_ITS | Encounter Summary ---
Author Organization Healthcare Address [address] [place] [address] Care Team Providers Care Hydraulics Engineer Name Role Phone Gilbert Gutierrez MD Primary Care Provider [phone] Encounter Details Date Type Department Care Team (Latest Contact Info) Description 06/23/2025 10:15 AM EDT - 06/23/2025 11:59 PM EDT Hospital Encounter Cardiac Imaging [address] [place] [address] ICD (implantable cardioverter-defibr illator) in place Discharge [...] 50 MG tabletIndications:Co ronary artery disease involving [place] tribe coronary artery of [place] tribe heart without angina pectoris,Ischemic cardiomyopathy TAKE 1/2 TABLET(25 MG) BY MOUTH ONCE DAILY 45 tablet 3 12/18/2023 metoprolol succinate XL (Toprol-XL) 25 MG 24 hr tabletIndications:Co ronary artery disease involving [place] tribe coronary artery of [place] tribe heart without angina pectoris,Ischemic cardiomyopathy TAKE 1/2 [...] tabletIndications:Is chemic cardiomyopathy,Chron ic systolic heart failure Take 1 tablet (5 mg) by mouth 1 (one) time each day. Take as directed per After Visit Summary. 1/2 tablet MWF 30 tablet 11 02/04/2024 documented as of this encounter Plan of Treatment Upcoming Encounters Date Type Department Care Team (Late st Contact Info) Description 08/12/2025 12:40 PM EDT Office Visit [facility] [address] [facility] [address] Emily Castaneda MD [address] [place] [address] 12/02/2025 1:00 PM EST Office Visit [facility] [address] [phone] Wilman Amor MD [address] [place] [phone] documented as of this encounter Procedures Procedure [...] documented as of this encounter Care Teams Hydraulics Engineer Relationship Specialty Start Date End Date Gilbert Gutierrez MD [address] [place] [address] PCP - General 03/17/21 documented as of this encounter
--- OUTSIDE RECORDS SUMMARY | 2025-08-04 14:31 | XMS_ITS | Encounter Summary ---
Author Organization Healthcare Address [address] [place] [address] Care Team Providers Care Tong Hooker Name Role Phone Gilbert Gutierrez MD Primary Care Provider [phone] Encounter Details Date Type Department Care Team (Late st Contact Info) Description 06/09/2025 Telephone [facility] [place] [address] [facility] [place] [address] Stella Gomes APRN [address] [place] [address] Social History Tobacco Use Types [...] Description 08/12/2025 12:40 PM EDT Office Visit [facility] [address] [facility] [place] [address] Emily Castaneda MD [address] [place] [address] 12/02/2025 1:00 PM EST Office Visit [facility] [address] [facility] [place] [address] Wilman Amor MD [address] [place] [address] documented as of this encounter [...] documented as of this encounter Care Teams Tong Hooker Relationship Specialty Start Date End Date Gilbert Gutierrez MD [address] [place] [address] PCP - General 03/17/21 documented as of this encounter
--- OUTSIDE RECORDS SUMMARY | 2025-08-04 14:31 | XMS_ITS | Encounter Summary ---
Author Organization Healthcare Address [address] [place] [address] Care Team Providers Care Fast Food Restaurant Manager Name Role Phone Gilbert Gutierrez MD Primary Care Provider [phone] Reason for Visit * Reason Comments Med Refill Encounter Details Date Type Department Care Team (Late Contact Info) Description 12/18/2023 Refill [facility] [place] [address] [facility], [address] [place] [phone] Eva Cotto PA [address] [place] [address] Social History Tobacco Use Types [...] Description 08/12/2025 12:40 PM EDT Office Visit [facility] [place] [address] [facility] [place] [address] Emily Castaneda MD [address] [place] [address] 12/02/2025 1:00 PM EST Office Visit [facility] [place] [address] [place] [address] Wilman Amor MD [address] [place] [phone] documented as of this encounter Visit Diagnoses Not on filedocumented in this encounter Additional Health Concerns Assessment Noted Time A fall risk assessment has been complete d for the patient 10/10/2023 10:33 AM EST A Body Mass Index follow-up plan has been documented for the patient 10/10/2023 11:18 AM EST documented as of this encounter Care Teams Fast Food Restaurant Manager Relationship Specialty Start Date End Date Gilbert Gutierrez MD [address] [place] [address] PCP - General 03/17/21 documented as of this encounter
--- OUTSIDE RECORDS SUMMARY | 2025-08-04 14:31 | XMS_ITS | Encounter Summary ---
Author Organization Healthcare Address [address] [place] [address] Care Team Providers Care Internet Sales Manager Name Role Phone Gilbert Gutierrez MD Primary Care Provider [phone] Encounter Details Date Type Department Care Team [...] Description 08/12/2025 12:40 PM EDT Office Visit [facility] [place] [address] [facility] [phone] Emily Castaneda MD [address] [place] [address] 12/02/2025 1:00 PM EST Office Visit [facility] [address] [phone] Wilman Amor MD [address] [place] [address] documented as of this encounter Visit Diagnoses [...] documented as of this encounter Care Teams Internet Sales Manager Relationship Specialty Start Date End Date Gilbert Gutierrez MD [address] [place] [address] PCP - General 03/17/21 documented as of this encounter
--- OUTSIDE RECORDS SUMMARY | 2025-08-04 14:31 | XMS_ITS | Clinical Summary ---
Author Organization [facility] Address [address] [facility] [address] [place] [address] Phone Care Team Providers Care Waste Examiner Name Role Phone Pepito Naik MD Unavailable [...]
--- OUTSIDE RECORDS SUMMARY | 2025-08-04 14:31 | XMS_ITS | Clinical Summary ---
Author Organization Healthcare Address [address] [place] [address] Care Team Providers Care Computer Systems Administrator Name Role Phone Gilbert Gutierrez MD Primary Care Provider [phone] Allergies No known active allergies Medications nitroglycerin [...] 50 MG tabletIndications: Coronary artery disease involving [place] coronary artery of [place] heart without angina pectoris,Ischemic cardiomyopathy TAKE 1/2 TABLET(25 MG) BY MOUTH ONCE DAILY 45 tablet 3 12/18/19 24 Active warfarin (Coumadin) 5 MG tabletIndications: Ischemic cardiomyopathy,Chr onic systolic heart failure Take 1 tablet (5 mg) by mouth 1 (one) time each day. Take as directed per After Visit Summary. 1/2 tablet MWF 30 tablet 11 02/04/20 24 Active metoprolol succinate XL (Toprol-XL) 25 MG 24 hr tabletIndications: Coronary artery disease involving [place] coronary artery of [place] heart without angina pectoris,Ischemic cardiomyopathy TAKE 1/2 TABLET(12.5 MG) BY MOUTH 1 TIME EACH DAY. DO NOT CRUSH OR CHEW 45 tablet 3 05/27/20 25 Active Additional Information Patient not taking.Reported on 06/03/2025 atorvastatin (Lipitor) 80 MG tablet Take 1 tablet by mouth daily. 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 Body mass index (BMI) of 25.0 to 29.9 06/18/2016 ICD (implantable cardioverte r-defibrillator), single, in situ 03/22/2016 Chronic systolic heart failure 01/16/2016 Ischemic cardiomyopathy 01/16/2016 CAD (coronary artery disease) 01/13/2016 Acute myocardial infarction, subsequent episode of care 01/13/2016 Anoxic brain injury 01/13/2016 Resolved Problems Problem Noted Date Diagnosed Date Resolved Date Bronchitis 02/02/2025 07/25/2025 Syncope and collapse 09/14/2021 025 Encounters Date Type Department Care Team Description 06/23/2025 10:15 AM EDT - 06/23/2025 11:59 PM EDT Hospital Encounter Cardiac Imaging [address] [place] [address] ICD (implantable cardioverter-defibrill ator) in place Discharge Disposition: Home or Self Care 06/23/2025 Travel 06/09/2025 Telephone [facility] [place] [address] [place] [phone] Stella Gomes APRN 06/03/2025 2:40 PM EDT Office Visit [facility] [place] [address] [place] [phone] Wilman Amor MD Coronary artery disease involving [place] coronary artery of [place] heart without angina pectoris (Primary Dx); Ischemic cardiomyopathy; Essential hypertension 06/03/2025 Travel 05/27/2025 Refill [facility] [place] [address] [place] [address] Lauren Fleming, SENIOR FIELD ENGINEER Coronary artery disease involving [place] coronary artery of [place] heart without angina pectoris; Ischemic cardiomyopathy from Last 3 Months Immunizations Immunization Administration [...] 12:40 PM EDT Office Visit [facility] [address] [facility] [place] [address] Emily Castaneda MD [address] [place] [address] 12/02/2025 1:00 PM EST Office Visit [facility] [address] [facility] [place] [address] Wilman Amor MD [address] [place] [address] Health Maintenance Due Date Last Done Comments [facility]-Hepatitis C Screening 1950 [facility]-Medicare Annual Wellness (AWV) 1950 [facility]-/Child/Adol SDOH Screenings 1950 [facility]- SDOH Screenings 1968 [facility]-Adult SDOH Screenings 1968 CT Colonography 1995 Colonoscopy 1995 FIT 1995 FOBT 1995 Sigmoidoscopy 1995 [facility]-Abdominal Aortic Aneurysm (AAA) Screening 2015 [id number] Vaccine ( season) 2025 03/01/2023, 06/20/2022, 09/13/2021, Additional history exists [facility]-Influenza [...] this topic Medical Devices Implanted Type Area Thread Cutter Device Identifier Shelf Expiration Date Model / Serial / Lot 7122q Durata Sj4 [id number] Lead 7122Q DURAT A SJ4 / [id number] / 1411-36q Ellipse Vr [id number] Implanted:03/14 (Quantity not on file) Pacemaker 1411-36Q ELLIPSE VR / [id number] / Procedures Procedure Name Priority Date/Time Associated [...] ventricular rhythm, likely sinus rhythm. Mabel Gage SENIOR FIELD ENGINEER CV IMPLANTABLE CARDIAC DEV ICE PROCEDURES Final Result from Last 3 Months Insurance MEDICARE [facility] Care Teams Computer Systems Administrator Relationship Specialty Start Date End Date Gilbert Gutierrez MD [address] [place] [address] PCP - General 03/17/21
[2025-08-04 15:53] LABS: PHA INR Fingerstick 3.0 (0.9-1.1)
== END 2025-08-04 15:58 ==
LOC: ACC 14:25
PROVIDERS: PCP Internal Medicine Adolescent Medicine; Visit Provider Internal Medicine Adolescent Medicine
DX: Z79.01 Long term (current) use of anticoagulants (principal)
CPT/HCPCS: 85610; 99211; G0463

== ENCOUNTER 2025-09-01 14:24 | Outpatient (CLI) | payer MEDICARE, OTHER, SELFPAY ==
--- OUTSIDE RECORDS SUMMARY | 2025-08-12 12:40 | XMS_ITS | Encounter Summary ---
Author Organization Healthcare Address [address] [phone] Care Team Providers Care Customer Complaint Clerk Name Role Phone Gilbert Gutierrez MD Primary Care Provider [phone] Reason for Referral * Consultation (Routine) - Authorized Specialty Diagnoses / Procedures Referred By Contac t Referred To Contact Diagnoses ICD (implantable cardioverter-defibrillator) in place LV (left ventricular) mural thrombus Emily Castaneda MD [address] [place] [address] Phone: tel: fax: Referral ID Status Reason Start Date Expiration Date V isits Requested Visits Authorized [id number] Authorized 08/12/2025 02/11/2027 1 1 * Imaging (Routine) - Pending Review Specialty Diagnoses / Procedures Referred By Contac t Referred To Contact Cardiology Diagnoses LV (left ventricular) mural thrombus Procedures Echo, Adult Transthoracic (TTE) Limited Emily Castaneda MD [address] [place] [address] Phone: tel: fax: Referral ID Status Reason Start Date Expiration Date Visits Requested Visits Authorized [id number] Pending Review Perform Procedure 08/12/2025 02/11/2027 1 1 Reason for Visit * Reason Comments Device Check Encounter Details Date Type Department Care Team (Late st Contact Info) Description 08/12/2025 12:40 PM EDT Office Visit [facility] [place] [facility] [address] [place] [address] Emily Castaneda MD [address] [place] [address] ICD (implantable cardioverter-defibril lator) in [...] Castaneda MD - 08/12/2025 12:40 PM EDT [facility] [place] Electrophysiology Consultation Note Service Consulted: Electrophysiology. Reason [...] report says secondary prevention arrest associated with MS. Device check has shown NSVT in the [...] performed in the clinic ) : - Batting Machine Operator : Morgan/St. Audie - Device type : [...] Care Team (Late st Contact Info) Description 09/16/2025 2:30 PM EST Appointment Cardiac Imaging [address] [place] [phone] 12/02/2025 1:00 PM EST Office Visit [facility] [place] [address] [address] Wilman Amor MD [address] [place] [address] 02/14/2026 11:40 AM EDT Office Visit [facility] [place] [address] [phone] Emily Castaneda MD [address] [place] [address] Scheduled Orders Name Type Priority Associated Diagnoses Order Schedule Echo, Adult Transthoracic (TTE) Limited Echocardiography Routine LV (left ventricular) mural thrombus 1 Occurrences starting 08/12/2025 until 02/13/2027 Scheduled Referrals Name Type Priority Associated Diagnoses Order Schedule Follow Up Cardiology Outpatient Referral Routine ICD (implantable cardioverter-defibr illator) in place LV (left ventricular) mural thrombus Expected: 02/10/2026, Expires: 02/10/2027 documented as of this encounter Procedures Procedure Name Priority Date/Time Associated Diagnosis Comments ECG ADULT Routine 08/12/2025 1:26 PM EDT ICD (implantable cardioverter-defibril lator) in place documented in this encounter Results * ECG Adult (Now - Performed in your clinic) (08/12/2025 1:26 PM EDT) EKG DIAGNOSIS CLASS Abnormal MUSE ECG Ventricular Rate 66 BPM MUSE ECG Atrial Rate 66 BPM MUSE ECG OR Interval 206 ms MUSE ECG QRSD Interval 102 ms MUSE ECG QT Interval 426 ms MUSE ECG QTC Interval 446 ms MUSE ECG P [place] 34 degrees MUSE ECG R [place] -69 degrees MUSE ECG T Wave [place] 75 degrees MUSE ECG Diagnosis Normal sinus rhythm MUSE ECG Diagnosis Left anterior fascicular block versus Inferior infarct MUSE ECG Diagnosis Anterolateral infarct , age undetermined MUSE ECG Diagnosis Abnormal ECG MUSE ECG Diagnosis MUSE ECG Diagnosis Confirmed by Oziel Hawthorne ([id number]) on 08/12/2025 4:17:07 PM MUSE ECG 08/12/2025 [...] documented as of this encounter Care Teams Customer Complaint Clerk Relationship Specialty Start Date End Date Gilbert Gutierrez MD [address] [place] [address] PCP - General 03/17/21 documented as of this encounter
--- OUTSIDE RECORDS SUMMARY | 2025-09-01 14:27 | XMS_ITS | Clinical Summary ---
Author Organization [facility] Address [address] [facility] [address] [place] [address] Phone Care Team Providers Care Director Of Diversity And Inclusion Name Role Phone Pepito Naik MD Unavailable [phone] [ ] Conditions or Problems No information available. Medications No information available. Medications Administered No information available. Allergies, Adverse Reactions, Alerts No information available. Results No information available. Plan of Care No information available. Procedures No information available. Vital Signs No information available. Immunizations No information available. Advance Directives No information available.
--- OUTSIDE RECORDS SUMMARY | 2025-09-01 14:28 | XMS_ITS | Clinical Summary ---
Author Organization Healthcare Address [address] [place] [address] Care Team Providers Care Litigator Name Role Phone Gilbert Gutierrez MD Primary Care Provider [phone] Allergies No known active allergies Medications nitroglycerin (Nitrostat) 0.4 MG SL tablet TAKE DIRECTED. 1 Active mirtazapine (Remeron) 15 MG tablet Take 1 tablet (15 mg) by mouth 1 (one) time each day. 1 Active Namzaric 28-10 MG capsule sustained-release 24 hr Take by mouth 1 (one) time each day. 1 Active guaiFENesin (Mucinex) 600 MG 12 hr tablet 1 tablet (600 mg) if needed. 8 Active aspirin 81 MG EC tablet Take 1 tablet (81 mg) by mouth 1 (one) time each day. Active losartan (Cozaar) 50 MG tabletIndications:C oronary artery disease involving [place] coronary artery of [place] heart without angina pectoris,Ischemic cardiomyopathy TAKE 1/2 TABLET(25 MG) BY MOUTH ONCE DAILY 45 tablet 3 4 Active warfarin (Coumadin) 5 MG tabletIndications:I schemic cardiomyopathy,Diaper Folder chet systolic heart failure Take 1 tablet (5 mg) by mouth 1 (one) time each day. Take as directed per After Visit Summary. 1/2 tablet MWF 30 tablet 11 4 Active metoprolol succinate XL (Toprol-XL) 25 MG 24 hr tabletIndications:C oronary artery disease involving [place] coronary artery of [place] heart without angina pectoris,Ischemic cardiomyopathy TAKE 1/2 TABLET(12.5 MG) BY MOUTH 1 TIME EACH DAY. DO NOT CRUSH OR CHEW 45 tablet 3 5 Active atorvastatin (Lipitor) 80 MG tablet Take 1 tablet by mouth daily. 90 tablet 3 5 Active Active Problems Problem Noted Date Diagnosed Date Atypical chest pain 02/02/2025 Mood disorder 05/02/2017 Orthostatic hypotension 01/14/2017 [...] Diagnosed Date Resolved Date Bronchitis 02/02/2025 07/25/2025 CAP (community acquired pneumonia) 02/02/2025 08/08/2025 Syncope and collapse 09/14/2021 025 Encounters Date Type Department Care Team Description 08/12/2025 12:40 PM EDT Office Visit [facility] [address] [facility] [phone] Emily Castaneda MD ICD (implantable cardioverter-defibri llator) in place (Primary Dx); LV (left ventricular) mural thrombus 08/12/2025 Travel 06/23/2025 10:15 AM EDT - 06/23/2025 11:59 PM EDT Hospital Encounter Cardiac Imaging [address] [place] [address] ICD (implantable cardioverter-defibri llator) in place Discharge Disposition: Home or Self Care 06/23/2025 Travel 06/09/2025 Telephone [facility] [address] [place] [address] Stella Gomes, SHAUN 06/03/2025 2:40 PM EDT Office Visit [facility] [address] [place] [address] Wilman Amor MD Coronary artery disease involving [place] coronary artery of [place] heart without angina pectoris (Primary Dx); Ischemic cardiomyopathy; Essential hypertension 06/03/2025 Travel from Last 3 Months Immunizations Immunization [...] Pulse 61 08/12/2025 12:50 PM EDT Temperature 36.8 C (98.2 F) 07/31/2021 10:18 AM EDT Respiratory Rate 16 06/03/2025 2:32 PM EDT Oxygen Saturation 92% 08/12/2025 12:50 PM EDT Inhaled Oxygen Concentration - - Weight 90.5 kg (199 lb 8.3 oz) 08/12/2025 12:50 PM EDT Height 177.8 cm (5' 10 ) 08/12/2025 12:50 PM EDT Body Mass Index 28.63 08/12/2025 12:50 PM EDT Plan of Treatment Upcoming Encounters Date Type Department Care Team (Late st Contact Info) Description 09/16/2025 2:30 PM EST Appointment Cardiac Imaging [address] [place] [phone] 12/02/2025 1:00 PM EST Office Visit [facility] [address] [facility] [phone] Wilman Amor MD [address] [place] [address] 02/14/2026 11:40 AM EDT Office Visit [facility] [address] [facility] [phone] Emily Castaneda MD [address] [place] [phone] Health Maintenance Due Date Last Done Comments [facility]-Hepatitis C Screening 1950 [facility]-Medicare Annual Wellness (AWV) 1950 [facility]-/Child/Adol SDOH Screenings 1950 [facility]- SDOH Screenings 1968 [facility]-Adult SDOH Screenings 1968 CT Colonography 1995 Colonoscopy 1995 FIT 1995 FOBT 1995 Sigmoidoscopy 1995 [facility]-Abdominal Aortic Aneurysm (AAA) Screening 2015 [id number] Vaccine ( season) 2025 03/01/2023, 06/20/2022, 09/13/2021, [...] Vaccines Completed 09/16/2024, [facility]-Obesity Intervention Completed 025, 06/03/2025, 02/11/2025, Additional history exists HPV Vaccines Aged Out [...] this topic Medical Devices Implanted Type Area News Librarian Device Identifier Shelf Expiration Date Model / Serial / Lot [id number] Durata Sj4 [id number] Lead [id number] DURAT A SJ4 / [id number] / [id number] Ellipse Vr [id number] Implanted:03/14 (Quantity not on file) Pacemaker 1411-36Q ELLIPSE VR / [id number] / Procedures Procedure Name Priority Date/Time Associated Diagnosis Comments ECG ADULT Routine 08/12/2025 1:26 PM EDT ICD (implantable cardioverter-defibr illator) in place CARDIAC DEVICE CHECK - REMOTE - ICD Routine 06/23/2025 11:18 AM EDT ICD (implantable cardioverter-defibr illator) in place from Last 3 Months Results * ECG Adult (Now - Performed in your clinic) (08/12/2025 1:26 PM EDT) EKG DIAGNOSIS CLASS Abnormal MUSE ECG Ventricular Rate 66 BPM MUSE ECG Atrial Rate 66 BPM MUSE ECG OR Interval 206 ms MUSE ECG QRSD Interval 102 ms MUSE ECG QT Interval 426 ms MUSE ECG QTC Interval 446 ms MUSE ECG P [place] 34 degrees MUSE ECG R [place] -69 degrees MUSE ECG T Wave [place] 75 degrees MUSE ECG Diagnosis Normal sinus rhythm MUSE ECG Diagnosis Left anterior fascicular block versus Inferior infarct MUSE ECG Diagnosis Anterolateral infarct , age undetermined MUSE ECG Diagnosis Abnormal ECG MUSE ECG Diagnosis MUSE ECG Diagnosis Confirmed by Oziel Hawthorne ([id number]) on 08/12/2025 4:17:07 PM MUSE ECG 08/12/2025 1:26 PM EDT 08/12/2025 4:17 PM EDT us Emily Castaneda MD ECG ORDERABLES Final Resul t MUSE ECG * CARDIAC DEVICE CHECK - REMOTE - [...] is Regular ventricular rhythm, likely sinus rhythm. us Mabel aGge APRN CV IMPLANTABLE CARDIAC DEV ICE PROCEDURES Final Result from Last 3 Months Insurance UHC MEDICARE Care Teams Litigator Relationship Specialty Start Date End Date Gilbert Gutierrez MD [address] [place] [address] PCP - General 03/17/21
--- OUTSIDE RECORDS SUMMARY | 2025-09-01 14:28 | XMS_ITS | Encounter Summary ---
Author Organization Healthcare Address [address] [place] [address] Care Team Providers Care Sales Professional Bilingual Name Role Phone Gilbert Gutierrez MD Primary Care Provider [phone] Reason for Visit * Reason Comments Med Refill Encounter Details Date Type Department Care Team (Late st Contact Info) Description 12/18/2023 Refill [facility] [place] [address] [facility], [address] [place] [phone] Eva Cotto, JW [address] [place] [address] Social History Tobacco Use Types [...] PM EST Appointment Cardiac Imaging [address] [place] [address] 12/02/2025 1:00 PM EST Office Visit [facility] [place] [address] [facility]. [address] [place] [phone] Wilman Amor MD [address] [place] [address] 02/14/2026 11:40 AM EDT Office Visit [facility] [place] [address] [facility]. [address] [place] [address] Emily Castaneda MD [address] [place] [address] documented as of this encounter Visit Diagnoses Not on filedocumented in this encounter Additional Health Concerns Assessment Noted Time A fall risk assessment has been complete d for the patient 10/10/2023 10:33 AM EST A Body Mass Index follow-up plan has been documented for the patient 10/10/2023 11:18 AM EST documented as of this encounter Care Teams Sales Professional Bilingual Relationship Specialty Start Date End Date Gilbert Gutierrez MD [address] [place] [address] PCP - General 03/17/21 documented as of this encounter
--- OUTSIDE RECORDS SUMMARY | 2025-09-01 14:28 | XMS_ITS | Encounter Summary ---
Author Organization Healthcare Address [address] [place] [address] Care Team Providers Care Residential Energy Auditor Name Role Phone Gilbert Gutierrez MD Primary Care Provider [phone] Encounter Details Date Type Department Care Team (Latest Contact Info) Description 08/12/2025 Travel Social History Tobacco Use Types Packs/Day [...] PM EST Appointment Cardiac Imaging [address] [place] [address] 12/02/2025 1:00 PM EST Office Visit [facility] [place] [address] [facility]. [address] [place] [address] Wilman Amor MD [address] [place] [address] 02/14/2026 11:40 AM EDT Office Visit [facility] [place] [address] [facility]. [address] [place] [address] Emily Castaneda MD [address] [place] [address] documented as of this encounter [...] documented as of this encounter Care Teams Residential Energy Auditor Relationship Specialty Start Date End Date Gilbert Gutierrez MD [address] [place] [address] PCP - General 03/17/21 documented as of this encounter
[2025-09-01 16:00] LABS: PHA INR Fingerstick 3.1 (0.9-1.1)
== END 2025-09-01 16:08 ==
LOC: ACC 14:25
PROVIDERS: PCP Internal Medicine Adolescent Medicine; Visit Provider Internal Medicine Adolescent Medicine
DX: Z79.01 Long term (current) use of anticoagulants (principal)
CPT/HCPCS: 85610; 99211; G0463

== ENCOUNTER 2025-09-22 14:24 | Outpatient (CLI) | payer MEDICARE, OTHER, SELFPAY ==
--- OUTSIDE RECORDS SUMMARY | 2025-08-12 11:40 | XMS_ITS | Encounter Summary ---
Author Organization Healthcare Address [address] [id number] Care Team Providers Care Split And Drum Room Supervisor Name Role Phone Gilbert Gutierrez MD Primary Care Provider [phone] Reason for Referral * Consultation (Routine) - Authorized Specialty Diagnoses / Procedures Referred By Contac t Referred To Contact Diagnoses ICD (implantable cardioverter-defibrillator) in place LV (left ventricular) mural thrombus Emily Castaneda MD [address] [place] [address] Phone: tel: fax: Referral ID Status Reason Start Date Expiration Date V isits Requested Visits Authorized [id number] Authorized 08/12/2025 02/11/2027 1 1 * Imaging (Routine) - Closed Specialty Diagnoses / Procedures Referred By Contac t Referred To Contact Cardiology Diagnoses LV (left ventricular) mural thrombus Procedures Echo, Adult Transthoracic (TTE) Limited Emily Castaneda MD [address] [place] [address] Phone: tel: fax: Referral ID Status Reason Start Date Expiration Date V isits Requested Visits Authorized [id number] Closed Perform Procedure 08/12/2025 02/11/2027 1 1 Reason for Visit * Reason Comments Device Check Encounter Details Date Type Department Care Team ([facility] st Contact Info) Description 08/12/2025 12:40 PM EDT Office Visit [facility] [place] [facility] [address] [place] [address] Emily Castaneda MD [address] [place] [address] ICD (implantable cardioverter-defibril lator) in place (Primary Dx); LV (left ventricular) mural thrombus Social History Tobacco Use Types Packs/Day Years [...] Sign Reading Time Taken Comments Blood Pressure 117/73 08/12/2025 12:50 PM EDT Pulse 61 08/12/2025 12:50 PM EDT Temperature - - Respiratory Rate - - Oxygen Saturation 92% 08/12/2025 12:50 PM EDT Inhaled Oxygen Concentration - - Weight 90.5 kg (199 lb 8.3 oz) 08/12/2025 12:50 PM EDT Height 177.8 cm (5' 10 ) 08/12/2025 12:50 PM EDT Body Mass Index 28.63 08/12/2025 12:50 PM EDT documented in this encounter Miscellaneous Notes * Progress Notes - Emily Castaneda MD - 08/12/2025 12:40 PM EDT [facility] [place] Electrophysiology Consultation Note Service Consulted: Electrophysiology. Reason for the consult : Referring Provider : No ref. provider found PCP : Gilbert Gutierrez MD History Of Present Illness: Navid Urbina is a 75 y.o. male with PMH significant for STEMI with cardiac arrest s/p PCI with drug eluting stents to the LAD 11/14/15. Ischemic cardiomyopathy was apparent, and he also suffered an anoxic brain injury. EKG demonstrated narrow QRS. He was candidate for single chamber ICD placed 3 months after report says secondary prevention arrest associated with VT. Device check has shown NSVT in the past. He is following with Dr. Amor in May. Echo 11/15/2022 EF 36%. With apical thrombus started on coumadin Denies any CP, dyspnea, palpitations, dizziness, syncope. He was sick with bug and was not eating properly and had issues with INR wondered about eliquis No echocardiogram results found for the past 12 months No results found for this or any previous visit (from the past 4464 hours). Past Medical History : He has a past medical history of Acute kidney failure, unspecified (CMS/HCC), Altered mental status, unspecified, Bronchitis (02/02/25), CAP (community acquired pneumonia) (02/02/25), Coronary arterydisease, Myocardial infarction, Personal history of other diseases of the digestive system, Personal history of other diseases of urinary system, Personal history of other endocrine, nutritional and metabolic disease, Personal history of other infectious and parasitic diseases, Personal history of other specified conditions, Personal history of sudden cardiac arrest, Syncope and collapse (09/14/21), and Unspecified protein-calorie malnutrition (CMS/HCC). Past Surgical History: He has no past surgical history on file. Family History: Family History[1] Social History: He reports that he has quit smoking. He has been exposed to tobacco smoke. He has never used smokeless tobacco. He reports that he does not drink alcohol and does not use drugs. Allergies: Patient has no known allergies. Medications: Current Medications[2] Relevant Labs: Lab Results Component Value Date/Time WBC 7.8 03/15/2016 1330 WBC 9.8 12/21/2015 0350 WBC 7.4 12/19/2015 0811 RBC 4.31 (L) 03/15/2016 1330 RBC 3.09 (L) 12/21/2015 0350 RBC 3.22 (L) 12/19/2015 0811 HGB 12.7 (L) 03/15/2016 1330 HGB 9.4 (L) 12/21/2015 0350 HGB 9.7 (L) 12/19/2015 0811 HGB 54.6 12/14/2015 1026 HCT 38.0 (L) 03/15/2016 1330 HCT 28.5 (L) 12/21/2015 0350 HCT 29.4 (L) 12/19/2015 0811 Lab Results Component Value Date/Time BUN 17 03/15/2016 1330 BUN 13 12/24/2015 0508 BUN 18 12/21/2015 0350 NA 144 03/15/2016 1330 NA 141 12/24/2015 0508 NA 138 12/21/2015 0350 K 4.1 03/15/2016 1330 K 3.7 12/24/2015 0508 K 4.0 12/21/2015 0350 CL 108 03/15/2016 1330 CL 107 12/24/2015 0508 CL 105 12/21/2015 0350 Lab Results Component Value Date/Time AST 30 12/16/2015 0303 AST 27 12/12/2015 0530 AST 41 12/10/2015 0321 ALT 36 12/16/2015 0303 ALT 30 12/12/2015 0530 ALT 38 12/10/2015 0321 ALKPHOS 71 12/16/2015 0303 ALKPHOS 73 12/12/2015 0530 ALKPHOS 81 12/10/2015 0321 Lab Results Component Value Date/Time TSH 4.74 (H) 12/12/2015 0530 TSH 2.89 11/14/20151850 FREET4 1.1 11/14/20151850 Review of Systems: 14 systems reviewed, negative except what is mentioned above. Vitals Signs : BP: ()/() Arterial Line BP: ()/() Physical Examination : - General appearance: NAD, conversant - Eyes: anicteric sclerae, moist conjunctivae; EOMI. - HEENT: Atraumatic, moist mucous membranes - Neck: Trachea midline - Lungs: CTA, normal respiratory effort. - CV: RRR, no M/R/G, no JVD, no lower ext edema. - Abdomen: Soft, non-tender, non-distended - Extremities: No peripheral edema - Skin: device site without infection or errosion - Neuro: grossly intact, no focal deficits. - Psych: Appropriate affect, appropriate mood. Device interrogation ( performed in the clinic ) : - Roll Trucker : Morgan/St. Audie - Device type : single chamber defibrillator - Device mode : VVI - Lower rate : 40 - Longevity : 2.4 years Sensing ( mV ) Pacing Threshold ( V @ ms ) Pacing % Impedance Ohms Notes RA Lead RV Lead 6.3 1.0@0.5 <1 340 ICD lead Impedance:73 Charge Time: 8.3 LV Lead Vector : Phrenic Capture : - Tachycardia Rx: - VT 1 : 150 monitor - VT 2 : 181 - VF : 240 - Episodes : none - Programming : none I personally reviewed and interpreted results of this device interrogation. Assessment and Plan : Device site and function are good 2. Apical thrombus recheck echo with contrast id still needs OAC plan switch to eliquis 3. Coumadin no bleeding 4. CAD apical infarct no CP statin ASA BB 5. RTC 6 month Emily Castaneda MD Electrophysiology [1] Family History Problem Relation Name Age of Onset Stroke Father Melroy Stroke Sister Coronary artery disease Mother Coronary artery disease Brother [2] Current Outpatient Medications Medication Sig Dispense Refill aspirin 81 MG EC tablet Take 1 tablet (81 mg) by mouth 1 (one) time each day. atorvastatin (Lipitor) 80 MG tablet Take 1 tablet by mouth daily. 90 tablet 3 guaiFENesin (Mucinex) 600 MG 12 hr tablet 1 tablet (600 mg) if needed. losartan (Cozaar) 50 MG tablet TAKE 1/2 TABLET(25 MG) BY MOUTH ONCE DAILY 45 tablet 3 metoprolol succinate XL (Toprol-XL) 25 MG 24 hr tablet TAKE 1/2 TABLET(12.5 MG) BY MOUTH 1 TIME EACH DAY. DO NOT CRUSH OR CHEW (Patient not taking: Reported on 06/03/2025) 45 tablet 3 mirtazapine (Remeron) 15 MG [...] Care Team (Late st Contact Info) Description 12/02/2025 1:00 PM EST Office Visit [facility] [address] [phone] Wilman Amor MD [address] [place] [phone] 02/14/2026 11:40 AM EDT Office Visit [facility] [address] [phone] Emily Castaneda MD [address] [place] [phone] Scheduled Referrals Name Type Priority Associated Diagnoses Order Schedule Follow Up Cardiology Outpatient Referral Routine ICD (implantable cardioverter-defibr illator) in place LV (left ventricular) mural thrombus Expected: 02/10/2026, Expires: 02/10/2027 documented as of this encounter Procedures Procedure Name Priority Date/Time Associated Diagnosis Comments ECG ADULT Routine 08/12/2025 1:26 PM EDT ICD (implantable cardioverter-defibril lator) in place documented in this encounter Results * ECHO, ADULT TRANSTHORACIC LIMITED W/ CONTRAST (09/16/2025 3:04 PM EST) Height 177.8 TISHA ISCV Weight 90.3 TISHA ISCV BSA 2.08 m2 TISHA ISCV LV EDV(MOD-2ch) 154 mL TISHA ISCV LV ESV(MOD2ch) 99 mL TISHA ISCV EF(MOD-sp2) 36 % TISHA ISCV LVLs ap2 8.2 mm TISHA ISCV LV EDV(MOD-4ch) 139 mL TISHA ISCV EDV(MOD-bp) 147 mL TISHA ISCV LV ESV(MOD4ch) 102 mL TISHA ISCV EF(MOD-sp4) 27 % TISHA ISCV ESV(MOD-bp) 101 mL TISHA ISCV EF(MOD-bp) 31 % TISHA ISCV IVSd 9 mm TISHA ISCV LVIDd 53 mm TISHA ISCV LVPWd 10 mm TISHA ISCV LV MASS(C)D 187 g TISHA ISCV [facility] CV ECHO LV MASS INDEX 90 g/m2 TISHA ISCV LV RWT 0.36 mm TISHA ISCV Anatomical Region Laterality Modality Echocardiography Narrative 09/16/2025 4:45 PM EST Left Ventricle: 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 No left ventricular mass or thrombus is seen. The left ventricular systolic function is severely reduced. The LVEF is visually estimated at 20 - 30%. See diagram below for wall motion findings. Compared to the most recently available prior study, and allowing for differences in image quality and technique, there is no clear evidence of LV thrombus. 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 No left ventricular mass or thrombus is seen. The left ventricular systolic function is severely reduced. The LVEF is visually estimated at 20 - 30%. See diagram below for wall motion findings. Left Atrium Intravenous injection of agitated saline demonstrates no evidence of intracardiac or intrapulmonary shunt. Mitral Valve The mitral valve leaflets are normal in appearance with no evidence of mitral valve prolapse. Pericardium No pericardial effusion. Study Details A limited transthoracic echocardiogram using limited 2D imaging was performed. During the study the apical and parasternal view was captured. Definity and Saline (bubble) contrast was used during the study. Overall the study quality was adequate. Heart rate was bradycardic. Height: 177.8 cm. Weight: 90.3 kg. BSA: 2.08 m2. Study Recommendation Compared to the most recently available prior study, and allowing for differences in image quality and technique, there is no significant interval change noted. Wall Scoring Baseline Score Index: 2.29 The following segments are aneurysmal: apical septal, apical inferior, apical lateral and apex. The following segments are akinetic: mid anteroseptal, mid inferolateral and apical anterior. All other segments are normal. us Emily Castaneda MD CV ECHO PROCEDURES Final Re sult * ECG Adult (Now - Performed in your clinic) (08/12/2025 1:26 PM EDT) EKG DIAGNOSIS CLASS Abnormal MUSE ECG Ventricular Rate 66 BPM MUSE ECG Atrial Rate [address] Interval 206 ms MUSE ECG QRSD Interval 102 ms MUSE ECG QT Interval 426 ms MUSE ECG QTC Interval 446 ms MUSE ECG P [place] 34 degrees MUSE ECG R [place] -69 degrees MUSE ECG T Wave [place] 75 degrees MUSE ECG Diagnosis Normal sinus rhythm MUSE ECG Diagnosis Left anterior fascicular block versus Inferior infarct MUSE ECG Diagnosis Anterolateral infarct , age undetermined MUSE ECG Diagnosis Abnormal ECG MUSE ECG Diagnosis MUSE ECG Diagnosis Confirmed by Oziel Hawthorne ([id number]) on 08/12/2025 4:17:07 PM MUSE ECG 08/12/2025 1:26 PM EDT 08/12/2025 4:17 PM EDT us Emily Castaneda MD ECG ORDERABLES Final Resul t MUSE ECG documented in this encounter Visit Diagnoses Diagnosis ICD (implantable cardioverter-defibrillator) in place- Primary LV (left ventricular) mural thrombus Acute myocardial infarction, unspecified site, episode of care unspecified LV (left ventricular) mural thrombus Acute myocardial infarction, unspecified site, episode of care unspecified documented in this encounter Additional Health Concerns Assessment Noted Time PHQ-9 Depression Total Score: 0 06/03/20 25 2:31 PM EDT A fall risk assessment has been complete d for the patient 08/12/2025 12:52 PM EDT A Body Mass Index follow-up plan has been documented for the patient 08/12/2025 2:00 PM EDT documented as of this encounter Care Teams Split And Drum Room Supervisor Relationship Specialty Start Date End Date Gilbert Gutierrez MD [address] [place] [address] PCP - General 03/17/21 documented as of this encounter
--- OUTSIDE RECORDS SUMMARY | 2025-09-16 13:33 | XMS_ITS | Encounter Summary ---
Author Organization Healthcare Address [address] [place] [address] Care Team Providers Care Landing Signal Officer Name Role Phone Gilbert Gutierrez MD Primary Care Provider [phone] Reason for Referral * Imaging (Routine) - Closed Specialty Diagnoses / Procedures Referred By Contac t Referred To Contact Cardiology Diagnoses LV (left ventricular) mural thrombus Procedures Echo, Adult Transthoracic (TTE) Limited Emily Castaneda MD [address] [place] [address] Phone: tel: fax: Referral ID Status Reason Start Date Expiration Date V isits Requested Visits Authorized [id number] Closed Perform Procedure 08/12/2025 02/11/2027 1 1 Reason for Visit * Imaging (Routine) - Closed Specialty Diagnoses / Procedures Referred By Contac t Referred To Contact Cardiology Diagnoses LV (left ventricular) mural thrombus Procedures Echo, Adult Transthoracic (TTE) Limited Emily Castaneda MD [address] [place] [address] Phone: tel: fax: Referral ID Status Reason Start Date Expiration Date V isits Requested Visits Authorized [id number] Closed Perform Procedure 08/12/2025 02/11/2027 1 1 Encounter Details Date Type Department Care Team (Latest Contact Info) Description 09/16/2025 1:33 PM EST - 09/16/2025 11:59 PM EST Hospital Encounter Cardiac Imaging [address] [place] [address] LV (left ventricular) mural thrombus Discharge Disposition: Home or Self Care Social [...] Sign Reading Time Taken Comments Blood Pressure 117/62 09/16/2025 2:33 PM EST Pulse 52 09/16/2025 2:33 PM EST Temperature - - Respiratory Rate - - Oxygen Saturation - - Inhaled Oxygen Concentration - - Weight - - Height - - Body Mass Index - - documented in this encounter Medications at Time of Discharge aspirin 81 MG EC tablet Take 1 tablet (81 mg) by mouth 1 (one) time each day. guaiFENesin (Mucinex) 600 MG 12 hr tablet 1 tablet (600 mg) if needed. 01/06/2018 losartan (Cozaar) 50 MG tabletIndications:Co ronary artery disease involving nansemond indian tribe coronary artery of nansemond indian tribe heart without angina pectoris,Ischemic cardiomyopathy TAKE 1/2 TABLET(25 MG) BY MOUTH ONCE DAILY 45 tablet 3 12/18/2023 mirtazapine (Remeron) 15 MG tablet Take 1 [...] 1/2 tablet MWF 30 tablet 11 02/04/2024 atorvastatin (Lipitor) 80 MG tablet Take 1 tablet by mouth daily. 90 tablet 3 06/09/2025 metoprolol succinate XL (Toprol-XL) 25 MG 24 hr tabletIndications:Co ronary artery disease involving nansemond indian tribe coronary artery of nansemond indian tribe heart without angina pectoris,Ischemic cardiomyopathy TAKE 1/2 TABLET(12.5 MG) BY MOUTH 1 TIME EACH DAY. DO NOT CRUSH OR CHEW 45 tablet 3 05/27/2025 documented as of this encounter Plan of Treatment Upcoming Encounters Date Type Department Care Team (Late st Contact Info) Description 12/02/2025 1:00 PM EST Office Visit [facility] [address] [address] Wilman Amor MD [address] [place] [address] 02/14/2026 11:40 AM EDT Office Visit [facility] [address] [address] Emily Castaneda MD [address] [place] [address] documented as of this encounter Procedures Procedure Name Priority Date/Time Associated Diagnosis Comments ECHO, ADULT TRANSTHORACIC LIMITED W/ CONTRAST Routine 09/16/2025 3:04 PM EST LV (left ventricular) mural thrombus documented in this encounter Results * ECHO, [...] ISCV LV MASS(C)D 187 g TISHA ISCV [facility] CV ECHO LV MASS INDEX 90 g/m2 [...] apical anterior. All other segments are normal. Emily Castaneda MD CV ECHO PROCEDURES Final Re sult documented in this encounter Visit Diagnoses Diagnosis LV (left ventricular) mural thrombus Acute myocardial infarction, unspecified site, episode of care unspecified documented in this encounter Administered Medications Inactive Administered Medications - up to 3 most recent administrations Medication Order MAR Action Action Date Dose Rate Site perflutren lipid microspheres (Definity) injection 10 mcL/kg 10 mcL/kg, Intravenous, Once in imaging, 1 dose, Starting on Mallika 09/16/25 at 1457, Until Mallika 09/16/25 at 1452, Routine Given 09/16/2025 2:52 PM EST documented in this encounter Additional Health Concerns Assessment Noted Time PHQ-9 Depression Total Score: 0 06/03/20 2:31 PM EDT A fall risk assessment has been complete d for the patient 08/12/2025 12:52 PM EDT A Body Mass Index follow-up plan has been documented for the patient 08/12/2025 2:00 PM EDT documented as of this encounter Care Teams Landing Signal Officer Relationship Specialty Start Date End Date Gilbert Gutierrez MD [address] [place] [address] PCP - General 03/17/21 documented as of this encounter
--- OUTSIDE RECORDS SUMMARY | 2025-09-22 09:27 | XMS_ITS | Encounter Summary ---
Author Organization Healthcare Address [address] [place] [address] Care Team Providers Care Cnc Lathe Machinist Name Role Phone Gilbert Gutierrez MD Primary Care Provider [phone] Encounter Details Date Type Department Care Team (Latest Contact Info) Description 09/22/2025 9:27 AM EST Hospital Encounter Cardiac Imaging [address] [place] [address] ICD (implantable cardioverter-defibr illator) in place Social [...] Description 12/02/2025 1:00 PM EST Office Visit [facility] [place] [address] [facility] [place] [address] Wilman Amor MD [address] [place] [address] 02/14/2026 11:40 AM EDT Office Visit [facility] [place] [address] [place] [address] Emily Castaneda MD [address] [place] [address] documented as of this encounter Procedures Procedure Name Priority Date/Time Associated Diagnosis Comments CARDIAC DEVICE CHECK - REMOTE - ICD Routine 09/22/2025 9:46 AM EST ICD (implantable cardioverter-defibr illator) in place documented in this encounter Results * CARDIAC DEVICE CHECK - REMOTE - ICD (09/22/2025 9:46 AM EST) Anatomical Region Laterality Modality Other Narrative 09/22/2025 11:35 AM EST [facility] EP - Device Clinic Remote CIED Report Name: Navid Urbina Date: 09/22/2025 : 1950 Age: 75 y.o. Reporting period: Reporting period is the last 91 days, with at least 30 days of remote monitoring. Interim reports, if any, reviewed and addressed previously; see remote alert entries for more details. Most recent report, dated 09/22/2025, analysis and summary as follows: Device: Morgan single chamber ICD Permanent Programming Mode: VVI LRL: 40 bpm Tachy Zones : VT-1 150 bpm VT 181 bpm VF > 240 bpm Available measurements within normal limits. See attached report. Pacing Percentage: Ventricular: <1 % Battery: Service time remainin.2 years Presenting rhythm: Regular ventricular sensed rhythm. Evaluation: Demonstrates appropriate sensing: Yes Demonstrates pacing capture: Yes Arrhythmias: No new arrhythmia of significance since last CIED evaluation. Summary: CIED functioning as expected, with given programming and data. See copy of vendor report in Media us Mabel Gage APRN CV IMPLANTABLE CARDIAC DEV [...] documented as of this encounter Care Teams Cnc Lathe Machinist Relationship Specialty Start Date End Date Gilbert Gutierrez MD [address] [place] [address] PCP - General 03/17/21 documented as of this encounter
[2025-09-22 15:05] LABS: PHA INR Fingerstick 1.9 (0.9-1.1)
--- OUTSIDE RECORDS SUMMARY | 2025-09-22 15:49 | XMS_ITS | Encounter Summary ---
Author Organization Healthcare Address [address] [place] [address] Care Team Providers Care Sales Representative Girls' Apparel Name Role Phone Gilbert Gutierrez MD Primary Care Provider [phone] Reason for Visit * Reason Comments Med Refill Encounter Details Date Type Department Care Team (Late st Contact Info) Description 12/18/2023 Refill [facility] [place] [address] [facility], [address] [place] [phone] Eva Cotto PA [address] [place] [address] Social History Tobacco Use Types [...] Department Care Team (Late Contact Info) Description 12/02/2025 1:00 PM EST Office Visit [facility] [place] [address] [facility] [place] [address] Wilman Amor MD [address] [place] [address] 02/14/2026 11:40 AM EDT Office Visit [facility] [place] [address] [place] [address] Emily Castaneda MD [address] [place] [phone] documented as of this encounter Visit Diagnoses Not on filedocumented in this encounter Additional Health Concerns Assessment Noted Time A fall risk assessment has been complete d for the patient 10/10/2023 10:33 AM EST A Body Mass Index follow-up plan has been documented for the patient 10/10/2023 11:18 AM EST documented as of this encounter Care Teams Sales Representative Girls' Apparel Relationship Specialty Start Date End Date Gilbert Gutierrez MD [address] [place] [address] PCP - General 03/17/21 documented as of this encounter
--- OUTSIDE RECORDS SUMMARY | 2025-09-22 15:49 | XMS_ITS | Encounter Summary ---
Author Organization Healthcare Address [address] [place] [address] Care Team Providers Care Vp Human Resources Name Role Phone Gilbert Gutierrez MD Primary Care Provider [phone] Encounter Details Date Type Department Care Team (Latest Contact Info) Description 09/22/2025 Travel Social History Tobacco Use Types Packs/Day [...] Description 12/02/2025 1:00 PM EST Office Visit [facility] [place] [address] [phone] Wilman Amor MD [address] [place] [address] 02/14/2026 11:40 AM EDT Office Visit [facility] [place] [address] [phone] Emily Castaneda MD [address] [place] [address] documented as of this encounter Visit Diagnoses [...] documented as of this encounter Care Teams Vp Human Resources Relationship Specialty Start Date End Date Gilbert Gutierrez MD [address] [place] [address] PCP - General 03/17/21 documented as of this encounter
--- OUTSIDE RECORDS SUMMARY | 2025-09-22 15:49 | XMS_ITS | Clinical Summary ---
Author Organization [facility] Address [address] [address] [place] [address] Phone Care Team Providers Care Five Piece Expansion Maker Hand Name Role Phone Pepito Naik MD Unavailable [phone] [ ] Conditions or Problems No information available. Medications No information available. Medications Administered No information available. Allergies, Adverse Reactions, Alerts No information available. Results No information available. Plan of Care No information available. Procedures No information available. Vital Signs No information available. Immunizations No information available. Advance Directives No information available.
--- OUTSIDE RECORDS SUMMARY | 2025-09-22 15:49 | XMS_ITS | Encounter Summary ---
Author Organization Healthcare Address [address] [place] [address] Care Team Providers Care Biztalk Software Developer Name Role Phone Gilbert Gutierrez MD Primary Care Provider [phone] Encounter Details Date Type Department Care Team (Latest Contact Info) Description 09/16/2025 Travel Social History Tobacco Use Types Packs/Day [...] Description 12/02/2025 1:00 PM EST Office Visit [facility] [place] [address] [phone] Wilman Amor MD [address] [place] [address] 02/14/2026 11:40 AM EDT Office Visit [facility] [place] [address] [phone] Emily Castaneda MD [address] [place] [address] documented as of this encounter Visit Diagnoses [...] documented as of this encounter Care Teams Biztalk Software Developer Relationship Specialty Start Date End Date Gilbert Gutierrez MD [address] [place] [address] PCP - General 03/17/21 documented as of this encounter
--- OUTSIDE RECORDS SUMMARY | 2025-09-22 15:50 | XMS_ITS | Encounter Summary ---
Author Organization Healthcare Address [address] [place] [address] Care Team Providers Care Hospital Receiving Clerk Name Role Phone Gilbert Gutierrez MD Primary Care Provider [phone] Encounter Details Date Type Department Care Team [...] Description 12/02/2025 1:00 PM EST Office Visit [facility] [place] [address] [phone] Wilman Amor MD [address] [place] [address] 02/14/2026 11:40 AM EDT Office Visit [facility] [place] [address] [phone] Emily Castaneda MD [address] [place] [address] documented as of this encounter Visit Diagnoses [...] documented as of this encounter Care Teams Hospital Receiving Clerk Relationship Specialty Start Date End Date Gilbert Gutierrez MD [address] [place] [address] PCP - General 03/17/21 documented as of this encounter
--- OUTSIDE RECORDS SUMMARY | 2025-09-22 15:50 | XMS_ITS | Clinical Summary ---
Author Organization Healthcare Address [address] [place] [address] Care Team Providers Care Structural Design Engineer Name Role Phone Gilbert Gutierrez MD Primary Care Provider [phone] Allergies No known active allergies Medications nitroglycerin [...] 50 MG tabletIndications:C oronary artery disease involving teller coronary artery of teller heart without angina pectoris,Ischemic cardiomyopathy TAKE 1/2 TABLET(25 MG) BY MOUTH ONCE DAILY 45 tablet 3 4 Active warfarin (Coumadin) 5 MG tabletIndications:I schemic cardiomyopathy,Clinical Associate chet systolic heart failure Take 1 tablet (5 mg) by mouth 1 (one) time each day. Take as directed per After Visit Summary. 1/2 tablet MWF 30 tablet 11 4 Active metoprolol succinate XL (Toprol-XL) 25 MG 24 hr tabletIndications:C oronary artery disease involving teller coronary artery of teller heart without angina pectoris,Ischemic cardiomyopathy TAKE 1/2 [...] Encounters Date Type Department Care Team Description 09/22/2025 9:27 AM EST Hospital Encounter Cardiac Imaging [address] [place] [address] ICD (implantable cardioverter-defibr illator) in place 09/22/2025 Travel 09/16/2025 1:33 PM EST - 09/16/2025 11:59 PM EST Hospital Encounter Cardiac Imaging [address] [place] [address] LV (left ventricular) mural thrombus Discharge Disposition: Home or Self Care 09/16/2025 Travel 08/12/2025 12:40 PM EDT Office Visit [facility] [place] [address] [place] [address] Emily Castaneda MD ICD (implantable cardioverter-defibr illator) in place (Primary Dx); LV (left ventricular) mural thrombus 08/12/2025 Travel 06/23/2025 10:15 AM EDT - 06/23/2025 11:59 PM EDT Hospital Encounter Cardiac Imaging [address] [place] [address] ICD (implantable cardioverter-defibr illator) in place Discharge Disposition: Home or Self Care 06/23/2025 Travel from Last 3 Months Immunizations Immunization [...] Pulse 52 09/16/2025 2:33 PM EST Temperature 36.8 C (98.2 F) 07/31/2021 10:18 [...] 12/02/2025 1:00 PM EST Office Visit [facility] [address] [facility] [place] [address] Wilman Amor MD [address] [place] [address] 02/14/2026 11:40 AM EDT Office Visit [facility] [address] [facility] [place] [address] Emily Castaneda MD [address] [place] [address] Health Maintenance Due Date Last Done Comments [facility]-Hepatitis C Screening 1950 [facility]-Medicare Annual Wellness (AWV) 1950 [facility]-/Child/Adol SDOH Screenings 1950 [facility]- SDOH Screenings 1968 [facility]-Adult SDOH Screenings 1968 CT Colonography 1995 Colonoscopy 1995 FIT 1995 FOBT 1995 Sigmoidoscopy 1995 [facility]-Abdominal Aortic Aneurysm (AAA) Screening 2015 [id number] Vaccine ( season) 2025 03/01/2023, 06/20/2022, 09/13/2021, Additional history exists [facility]-Depression Screening 06/03/2026 06/03/2025, 05/06 FIT-DNA 09/14/2028 09/14/2025, 110 11/2021, 08/17/2019 [facility]-Colorectal Cancer Screening 09/14/2028 [facility]-DTaP,Tdap,and Td Vaccines (2 - Td or Tdap) 12/07/2033 12/07/2023 [facility]-Hepatitis A Vaccines Aged Out 06/11/2019, 10/04 No longer eligible based on patient's age to complete this topic [facility]-Pneumococcal Vaccine: 50+ Years Completed 02/11/2023, 10/11/2017, 12/06/2015 [facility]-RSV Vaccine: 60+ Years or Completed 09/30/2023 [facility]-Zoster Vaccines Completed 09/16/2024, [facility]-Obesity Intervention Completed 025, 06/03/2025, 02/11/2025, Additional history exists [facility]-Influenza Vaccine Completed 08/16/2025 , 08/10/2024, 08/09/2023, Additional history exists HPV Vaccines Aged Out [...] this topic Medical Devices Implanted Type Area Wide Area Network Systems Administrator Device Identifier Shelf Expiration Date Model / Serial / Lot [id number] Durata Sj4 [id number] Lead [id number] DURAT A SJ4 / [id number] / 1411-36q Ellipse Vr [id number] Implanted:03/14 (Quantity not on file) Pacemaker 1411-36Q ELLIPSE VR / [id number] / Procedures Procedure Name Priority Date/Time Associated Diagnosis Comments CARDIAC DEVICE CHECK - REMOTE - ICD Routine 09/22/2025 9:46 AM EST ICD (implantable cardioverter-defib rillator) in place ECHO, ADULT TRANSTHORACIC LIMITED W/ CONTRAST Routine 09/16/2025 3:04 PM EST LV (left ventricular) mural thrombus ECG ADULT Routine 08/12/2025 1:26 PM EDT ICD (implantable cardioverter-defib rillator) in place CARDIAC DEVICE CHECK - REMOTE - ICD Routine 06/23/2025 11:18 AM EDT ICD (implantable cardioverter-defib rillator) in place from Last 3 Months Results * CARDIAC DEVICE CHECK - REMOTE - ICD (09/22/2025 9:46 AM EST) Only the most recent of2 resultswithin the time period is included. Anatomical Region Laterality Modality Other Narrative 09/22/2025 11:35 AM EST [facility] EP - Device Clinic Remote CIED [...] vendor report in Media us Mabel Martinez Too DUNN CV IMPLANTABLE CARDIAC DEV ICE PROCEDURES Final Result * ECHO, ADULT TRANSTHORACIC LIMITED W/ CONTRAST [...] ECG Atrial Rate 66 BPM MUSE ECG SC Interval 206 ms MUSE ECG QRSD Interval 102 ms MUSE ECG QT Interval 426 ms MUSE ECG QTC Interval 446 ms MUSE ECG P [place] 34 degrees MUSE ECG R [place] -69 degrees MUSE ECG T Wave [place] 75 degrees MUSE ECG Diagnosis Normal sinus rhythm MUSE ECG Diagnosis Left anterior fascicular block versus Inferior infarct MUSE ECG Diagnosis Anterolateral infarct , age undetermined MUSE ECG Diagnosis Abnormal ECG MUSE ECG Diagnosis MUSE ECG Diagnosis Confirmed by Oziel Hawthorne ([id number]) on 08/12/2025 4:17:07 PM MUSE ECG 08/12/2025 1:26 PM EDT 08/12/2025 4:17 PM EDT us Emily Castaneda MD ECG ORDERABLES Final Resul t MUSE ECG from Last 3 Months Insurance [facility] MEDICARE Care Teams Structural Design Engineer Relationship Specialty Start Date End Date Gilbert Gutierrez MD [address] [place] [address] PCP - General 03/17/21
== END 2025-09-22 15:08 ==
LOC: ACC 14:24
PROVIDERS: PCP Internal Medicine Adolescent Medicine; Visit Provider Internal Medicine Adolescent Medicine
DX: Z79.01 Long term (current) use of anticoagulants (principal)
CPT/HCPCS: 85610; 99211; G0463